=== PATIENT | female | born 1995 | race Caucasian/White ===

== ENCOUNTER → 2017-11-25 12:28 | Outpatient (CLI) | payer OTHER, SELFPAY ==
[2017-11-25 13:41] LABS: Collection Time Urine 24 Hours; Patient Height Urine 66 inches; Patient Weight Urine 260 lbs; Total Volume Urine 1600 mL
[2017-11-25 15:06] LABS: Creat Clearance, Corrected 144.2 mL/MIN; Creatinine Clearance Urine 185.7 mL/MIN; Protein (Total) Urine Random 16 mg/dL (0-12); Total Protein 24 Hour Urine 256 mg/day (42-225)
[2017-11-25 15:31] LABS: Aspartate Aminotransferase 14 IU/L (14-36); BUN Creatinine Ratio 8.6 (6-22); Blood Urea Nitrogen 6 mg/dL (7-17); Estimated Glomerular Filt Rate > 60.0 mL/min (>60); Uric Acid 7.3 mg/dL (2.5-6.2)
[2017-11-25 15:43] LABS: Platelet Count 222 X10^3/uL (150-400)
== END ==
PROVIDERS: Visit Provider Obstetrics & Gynecology
DX: O14.90 Unspecified pre-eclampsia, unspecified trimester (principal)
CPT/HCPCS: 36415; 82575; 84156; 84450; 84550; 85049

== ENCOUNTER 2017-11-25 13:10 | Observation (INO) | payer OTHER, SELFPAY ==
--- NOTE | 2017-11-29 09:07 | PM.OBTRLD ---
Visit Information Visit Information Date of evaluation: 11/25/17 Primary OB Provider: Micaela Russ Reason for Evaluation: Yes non-stress test Comments/Additional reasons for admission: Elevated BP Evaluation Evaluation Baseline heart rate: 135 Variability: Moderate (11-25) monitor accelerations: Absent monitor decelerations: Absent Category of Tracing: I
== END 2017-11-25 16:10 | disposition home or self-care (01) ==
PROVIDERS: Admitting Provider Obstetrics & Gynecology; Visit Provider Obstetrics & Gynecology
DX: O13.3 Gestational [pregnancy-induced] hypertension without significant proteinuria, third trimester (principal); Z3A.35 35 weeks gestation of pregnancy; O24.913 Unspecified diabetes mellitus in pregnancy, third trimester; Z79.84 Long term (current) use of oral hypoglycemic drugs
CPT/HCPCS: 36415; 59025; 59050; 82575; 84156; 84450; 84550; 85049; G0378; G0379

== ENCOUNTER 2017-11-27 03:13 | Outpatient (CLI) | payer OTHER, SELFPAY ==
[2017-11-27 04:25] VITALS: BP 135/87; PULSE 81; RESP 18; TEMP 35.9
[2017-11-27 04:39] VITALS: BP 135/87; PULSE 81; RESP 18; TEMP 35.9
== END 2017-11-27 04:30 | disposition home or self-care (01) ==
LOC: OB 11-28 15:23
PROVIDERS: Visit Provider Obstetrics & Gynecology
DX: O13.3 Gestational [pregnancy-induced] hypertension without significant proteinuria, third trimester (principal); O24.415 Gestational diabetes mellitus in pregnancy, controlled by oral hypoglycemic drugs; Z3A.35 35 weeks gestation of pregnancy
CPT/HCPCS: 59025; 59050; G0378; G0379

== ENCOUNTER 2017-11-29 15:12 | Outpatient (CLI) | payer OTHER, SELFPAY ==
--- NOTE | 2017-11-29 16:13 | PM.OBTRLD ---
Visit Information Visit Information Date of evaluation: 11/29/17 Primary OB Provider: Micaela Russ Reason for Evaluation: Yes non-stress test Comments/Additional reasons for admission: Gestational HTN PFSH Social History Smoking Status: Never smoker Evaluation Evaluation Baseline heart rate: 135 Variability: Moderate (11-25) monitor accelerations: Present monitor decelerations: Absent Category of Tracing: I
== END 2017-11-29 16:15 | disposition home or self-care (01) ==
LOC: LABOR 16:22 → OB 12-02 16:42
PROVIDERS: Visit Provider Obstetrics & Gynecology
DX: O13.3 Gestational [pregnancy-induced] hypertension without significant proteinuria, third trimester (principal); O24.415 Gestational diabetes mellitus in pregnancy, controlled by oral hypoglycemic drugs; Z3A.35 35 weeks gestation of pregnancy
CPT/HCPCS: 59025; G0378; G0379

== ENCOUNTER 2017-12-02 09:01 | Observation (INO) | payer OTHER, SELFPAY ==
[2017-12-02 10:26] VITALS: BP 144/94; PULSE 71
[2017-12-02] MEDS: LABETALOL 100 MG TABLET 200 MG PO (10:26)
[2017-12-02 10:32] LABS: Add Manual Diff / Slide Review NO; Basophils Percent Auto 0.3 % (0-2); Eosinophils Percent Auto 1.7 % (2-4); Hematocrit 34.6 % (36-46); Lymphocytes Percent Auto 19.9 % (25-40); Mean Corpuscular HGB Conc 34.5 % (30-36); Mean Corpuscular Hemoglobin 30.5 PG (26-34); Mean Corpuscular Volume 88.3 fL (80-100); Monocytes Percent Auto 6.4 % (3-14); Neutrophils Absolute Auto 5900 /uL (3000-5900); Neutrophils Percent Auto 71.7 % (50-75); Platelet Count 211 X10^3/uL (150-400); Red Blood Cell Count 3.92 X10^6/uL (4.0-5.2); Red Cell Distribution Width 14.8 % (11.6-14.8); White Blood Cell Count 8.2 X10^3/uL (4.5-11.0)
[2017-12-02 10:52] LABS: Alanine Aminotransferase 16 IU/L (9-52); Albumin 3.5 g/dL (3.5-5.0); Albumin Globulin Ratio 1.3 (1.0-2.8); Alkaline Phosphatase 105 U/L (38-126); Aspartate Aminotransferase 14 IU/L (14-36); BUN Creatinine Ratio 7.1 (6-22); Bilirubin Total 0.2 mg/dL (0.2-1.3); Blood Urea Nitrogen 5 mg/dL (7-17); Calcium 9.9 mg/dL (8.4-10.2); Carbon Dioxide 25 mmol/L (22-32); Chloride 103 mmol/L (98-107); Estimated Glomerular Filt Rate > 60.0 mL/min (>60); Globulin 2.8 g/dL (1.7-4.1); Glucose 82 mg/dL (70-100); HEMOLYSIS < 15 (0-50); Potassium 4.4 mmol/L (3.4-5.1); Sodium 136 mmol/L (137-145); Total Protein 6.3 g/dL (6.3-8.2); Uric Acid 6.5 mg/dL (2.5-6.2)
[2017-12-02 11:14] LABS: Bacteria Urine None Seen; RBC Urine None Seen (0-5/HPF)
[2017-12-02 11:16] LABS: Appearance Urine UA CLEAR; Bilirubin Urine UA NEGATIVE (NEGATIVE); Color Urine UA YELLOW; Glucose Urine UA NEGATIVE (Normal); Ketones Urine UA NEGATIVE (NEGATIVE); Leukocyte Esterase Urine UA NEGATIVE (NEGATIVE); Nitrite Urine UA Negative (Negative); Occult Blood Urine UA NEGATIVE (Negative); Protein Urine UA NEGATIVE (Negative); Specific Gravity Urine UA <=1.005 (1.000-1.035); Urobilinogen Urine UA 0.2 E.U./dL (0.2); pH Urine UA 6.5 (4.5-8.0)
[2017-12-02 11:20] LABS: Culture Indicated Urine Cult Not Indicated
[2017-12-02 11:21] LABS: Squamous Epithelial Cell Urine 10-30 /HPF; WBC Urine 0-1/HPF (0-5/HPF)
--- NOTE | 2017-12-02 11:44 | PM.OBTRLD ---
Visit Information Visit Information Date of evaluation: 12/02/17 Primary OB Provider: Micaela Russ On-call OB Provider: Krysten Fry Reason for Evaluation: Yes non-stress test Comments/Additional reasons for admission: associated hypertension Vital Signs Vital Signs: Vital Signs - 8 hr Patient with blood pressures as high 143/110, 149/101 12/02/17 10:26 Pulse Rate 71 Blood Pressure 144/94 H REPLACED BY [facility] Social History Smoking Status: Never smoker Review of Systems Review of Systems Patient denies headaches, scotomata, and upper epigastric pain Exam Vital Signs (past 8 hours): - 12/02/17 10:26 Pulse Rate 71 Blood Pressure 144/94 H Objective Labs Result Diagrams: 12/02/17 10:22 12/02/17 10:22 Labs: Laboratory Results - last 24 hr 12/02/17 12/02/17 12/02/17 10:22 10:22 Unknown WBC 8.2 RBC 3.92 L Hgb 12.0 Hct 34.6 L MCV 88.3 MCH 30.5 MCHC 34.5 RDW 14.8 Plt Count 211 Neut % (Auto) 71.7 Lymph % (Auto) 19.9 L [place] % (Auto) 6.4 Eos % (Auto) 1.7 L Baso % (Auto) 0.3 Neut # (Auto) 5900 Sodium 136 L Potassium 4.4 Chloride 103 Carbon Dioxide 25 BUN 5 L Creatinine 0.70 Estimated GFR > 60.0 BUN/Creatinine Ratio 7.1 Glucose 82 Uric Acid 6.5 H Calcium 9.9 Total Bilirubin 0.2 AST 14 ALT 16 Alkaline Phosphatase 105 Total Protein 6.3 Albumin 3.5 Globulin 2.8 Albumin/Globulin Ratio 1.3 Urine Color Yellow Urine Appearance Clear Urine pH 6.5 Ur Specific [place] <=1.005 Urine Protein Negative Urine Glucose (UA) Negative Urine Ketones Negative Urine Occult Blood Negative Urine Nitrate Negative Urine Bilirubin Negative Urine Urobilinogen 0.2 Ur Leukocyte Esterase Negative Urine RBC None seen Urine WBC 0-1/hpf Ur Squamous Epith Cells 10-30 /hpf H Urine Bacteria None seen Ur Culture Indicated? Cult not indicated Micro UA Comment Not Reportable Evaluation Evaluation Baseline heart rate: 130 Variability: Moderate (11-25) monitor accelerations: Present monitor decelerations: Absent Category of Tracing: I Laboratory results: Laboratory Tests 12/02/17 12/02/1712/02/18 10:22 10:22 Unknown WBC 8.2 RBC 3.92 L Hgb 12.0 Hct 34.6 L MCV 88.3 MCH 30.5 MCHC 34.5 RDW 14.8 Plt Count 211 Neut % (Auto) 71.7 Lymph % (Auto) 19.9 L [place] % (Auto) 6.4 Eos % (Auto) 1.7 L Baso % (Auto) 0.3 Neut # (Auto) 5900 Sodium 136 L Potassium 4.4 Chloride 103 Carbon Dioxide 25 BUN 5 L Creatinine 0.70 Estimated GFR > 60.0 BUN/Creatinine Ratio 7.1 Glucose 82 Uric Acid 6.5 H Calcium 9.9 Total Bilirubin 0.2 AST 14 ALT 16 Alkaline Phosphatase 105 Total Protein 6.3 Albumin 3.5 Globulin 2.8 Albumin/Globulin Ratio 1.3 Urine Color Yellow Urine Appearance Clear Urine pH 6.5 Ur Specific [place] <=1.005 Urine Protein Negative Urine Glucose (UA) Negative Urine Ketones Negative Urine Occult Blood Negative Urine Nitrate Negative Urine Bilirubin Negative Urine Urobilinogen 0.2 Ur Leukocyte Esterase Negative Urine RBC None seen Urine WBC 0-1/hpf Ur Squamous Epith Cells 10-30 /hpf H Urine Bacteria None seen Ur Culture Indicated? Cult not indicated Micro UA Comment Not Reportable Diagnosis, Plan/Disposition Final Diagnosis (1) Hypertension during in third trimester: Current Visit: No Status: Acute (2) 36 weeks gestation of : Current Visit: No Status: Acute Plan/Disposition Plan: Patient will be started on labetalol for hypertension with no other signs or symptoms of preeclampsia. She has a follow-up appointment with Dr. Russ on December 06. OB Disposition: home
--- NOTE | 2017-12-02 11:50 | P.TNLD_ITS ---
Visit Information Visit Information Date of evaluation: 12/02/17 Primary OB Provider: Micaela Russ On-call OB Provider: Krysten Fry Reason for Evaluation: Yes non-stress test Comments/Additional reasons for admission: associated hypertension Vital Signs Vital Signs: Vital Signs - 8 hr Patient with blood pressures as high 143/110, 149/101 12/02/17 10:26 Pulse Rate 71 Blood Pressure 144/94 H [facility] Social History Smoking Status: Never smoker Review of Systems Review of Systems Patient denies headaches, scotomata, and upper epigastric pain Exam Vital Signs (past 8 hours): - 12/02/17 10:26 Pulse Rate 71 Blood Pressure 144/94 H Objective Labs Result Diagrams: 12/02/17 10:22 12/02/17 10:22 Labs: Laboratory Results - last 24 hr 12/02/17 12/02/17 12/02/17 10:22 10:22 Unknown WBC 8.2 RBC 3.92 L Hgb 12.0 Hct 34.6 L MCV 88.3 MCH 30.5 MCHC 34.5 RDW 14.8 Plt Count 211 Neut % (Auto) 71.7 Lymph % (Auto) 19.9 L [place] % (Auto) 6.4 Eos % (Auto) 1.7 L Baso % (Auto) 0.3 Neut # (Auto) 5900 Sodium 136 L Potassium 4.4 Chloride 103 Carbon Dioxide 25 BUN 5 L Creatinine 0.70 Estimated GFR > 60.0 BUN/Creatinine Ratio 7.1 Glucose 82 Uric Acid 6.5 H Calcium 9.9 Total Bilirubin 0.2 AST 14 ALT 16 Alkaline Phosphatase 105 Total Protein 6.3 Albumin 3.5 Globulin 2.8 Albumin/Globulin Ratio 1.3 Urine Color Yellow Urine Appearance Clear Urine pH 6.5 Ur Specific [place] <=1.005 Urine Protein Negative Urine Glucose (UA) Negative Urine Ketones Negative Urine Occult Blood Negative Urine Nitrate Negative Urine Bilirubin Negative Urine Urobilinogen 0.2 Ur Leukocyte Esterase Negative Urine RBC None seen Urine WBC 0-1/hpf Ur Squamous Epith Cells 10-30 /hpf H Urine Bacteria None seen Ur Culture Indicated? Cult not indicated Micro UA Comment Not Reportable Evaluation Evaluation Baseline heart rate: 130 Variability: Moderate (11-25) monitor accelerations: Present monitor decelerations: Absent Category of Tracing: I Laboratory results: Laboratory Tests 12/02/17 12/02/1712/02/18 10:22 10:22 Unknown WBC 8.2 RBC 3.92 L Hgb 12.0 Hct 34.6 L MCV 88.3 MCH 30.5 MCHC 34.5 RDW 14.8 Plt Count 211 Neut % (Auto) 71.7 Lymph % (Auto) 19.9 L [place] % (Auto) 6.4 Eos % (Auto) 1.7 L Baso % (Auto) 0.3 Neut # (Auto) 5900 Sodium 136 L Potassium 4.4 Chloride 103 Carbon Dioxide 25 BUN 5 L Creatinine 0.70 Estimated GFR > 60.0 BUN/Creatinine Ratio 7.1 Glucose 82 Uric Acid 6.5 H Calcium 9.9 Total Bilirubin 0.2 AST 14 ALT 16 Alkaline Phosphatase 105 Total Protein 6.3 Albumin 3.5 Globulin 2.8 Albumin/Globulin Ratio 1.3 Urine Color Yellow Urine Appearance Clear Urine pH 6.5 Ur Specific [place] <=1.005 Urine Protein Negative Urine Glucose (UA) Negative Urine Ketones Negative Urine Occult Blood Negative Urine Nitrate Negative Urine Bilirubin Negative Urine Urobilinogen 0.2 Ur Leukocyte Esterase Negative Urine RBC None seen Urine WBC 0-1/hpf Ur Squamous Epith Cells 10-30 /hpf H Urine Bacteria None seen Ur Culture Indicated? Cult not indicated Micro UA Comment Not Reportable Diagnosis, Plan/Disposition Final Diagnosis (1) Hypertension during in third trimester: Current Visit: No Status: Acute (2) 36 weeks gestation of : Current Visit: No Status: Acute Plan/Disposition Plan: Patient will be started on labetalol for hypertension with no other signs or symptoms of preeclampsia. She has a follow-up appointment with Dr. Russ on December 06. OB Disposition: home
--- NOTE | 2017-12-07 09:07 | PM.OBTRLD ---
Visit Information Visit Information Date of evaluation: 12/05/17 Primary OB Provider: Micaela Russ Reason for Evaluation: Yes non-stress test and Yes other Comments/Additional reasons for admission: Gestational hypertension [facility] Social History Smoking Status: Never smoker Objective Labs Result Diagrams: 12/02/17 10:22 12/02/17 10:22 Evaluation Evaluation Baseline heart rate: 135 monitor accelerations: Present monitor decelerations: Absent Category of Tracing: I Laboratory results: Laboratory Tests 12/02/17 12/02/17 12/02/17 10:22 10:22 Unknown WBC 8.2 RBC 3.92 L Hgb 12.0 Hct 34.6 L MCV 88.3 MCH 30.5 MCHC 34.5 RDW 14.8 Plt Count 211 Neut % (Auto) 71.7 Lymph % (Auto) 19.9 L [place] % (Auto) 6.4 Eos % (Auto) 1.7 L Baso % (Auto) 0.3 Neut # (Auto) 5900 Sodium 136 L Potassium 4.4 Chloride 103 Carbon Dioxide 25 BUN 5 L Creatinine 0.70 Estimated GFR > 60.0 BUN/Creatinine Ratio 7.1 Glucose 82 Uric Acid 6.5 H Calcium 9.9 Total Bilirubin 0.2 AST 14 ALT 16 Alkaline Phosphatase 105 Total Protein 6.3 Albumin 3.5 Globulin 2.8 Albumin/Globulin Ratio 1.3 Urine Color Yellow Urine Appearance Clear Urine pH 6.5 Ur Specific [place] <=1.005 Urine Protein Negative Urine Glucose (UA) Negative Urine Ketones Negative Urine Occult Blood Negative Urine Nitrate Negative Urine Bilirubin Negative Urine Urobilinogen 0.2 Ur Leukocyte Esterase Negative Urine RBC None seen Urine WBC 0-1/hpf Ur Squamous Epith Cells 10-30 /hpf H Urine Bacteria None seen Ur Culture Indicated? Cult not indicated Micro UA Comment Not Reportable Diagnosis, Plan/Disposition Final Diagnosis (1) Hypertension during in third trimester: Current Visit: No Status: Acute (2) 36 weeks gestation of : Current Visit: No Status: Acute
== END 2017-12-02 11:47 | disposition home or self-care (01) ==
PROVIDERS: Specialist; Admitting Provider Obstetrics & Gynecology; Visit Provider Obstetrics & Gynecology
DX: O13.3 Gestational [pregnancy-induced] hypertension without significant proteinuria, third trimester (principal); Z3A.36 36 weeks gestation of pregnancy
CPT/HCPCS: 59025; 59050; 80053; 81001; 84550; 85025; G0378; G0379

== ENCOUNTER 2017-12-05 17:59 | Observation (INO) | payer OTHER, SELFPAY ==
[2017-12-05 18:51] LABS: Platelet Count 209 X10^3/uL (150-400)
[2017-12-05 19:00] LABS: Aspartate Aminotransferase 15 IU/L (14-36); Blood Urea Nitrogen 6 mg/dL (7-17); Estimated Glomerular Filt Rate > 60.0 mL/min (>60); Uric Acid 6.5 mg/dL (2.5-6.2)
[2017-12-05 19:34] LABS: Appearance Urine UA CLEAR; Bilirubin Urine UA NEGATIVE (NEGATIVE); Color Urine UA YELLOW; Glucose Urine UA NEGATIVE (Normal); Ketones Urine UA TRACE (NEGATIVE); Leukocyte Esterase Urine UA TRACE (NEGATIVE); Nitrite Urine UA Negative (Negative); Occult Blood Urine UA NEGATIVE (Negative); Protein Urine UA 1+ (Negative); Urobilinogen Urine UA 0.2 E.U./dL (0.2); pH Urine UA 7.5 (4.5-8.0)
[2017-12-05 19:51] LABS: Bacteria Urine None Seen; RBC Urine None Seen (0-5/HPF)
[2017-12-05 20:02] LABS: Squamous Epithelial Cell Urine 5-10 /HPF; WBC Urine 5-10/HPF (0-5/HPF)
[2017-12-05 20:03] LABS: Culture Indicated Urine Cult Not Indicated
[2017-12-05] MEDS: ACETAMINOPHEN 325 MG TABLET 975 MG PO (20:05)
== END 2017-12-05 20:15 | disposition home or self-care (01) ==
LOC: LABOR 18:02
PROVIDERS: Obstetrics & Gynecology; Admitting Provider Family Medicine; Visit Provider Family Medicine
DX: O13.3 Gestational [pregnancy-induced] hypertension without significant proteinuria, third trimester (principal); O24.415 Gestational diabetes mellitus in pregnancy, controlled by oral hypoglycemic drugs; Z3A.36 36 weeks gestation of pregnancy
CPT/HCPCS: 36415; 59025; 59050; 81003; 81015; 84450; 84550; 85049; G0378; G0379

== ENCOUNTER 2017-12-06 16:48 | Observation (INO) | payer OTHER, SELFPAY | END 2017-12-06 16:49 | disposition home or self-care (01) | LOC: LABOR 16:49 | PROVIDERS: Admitting Provider Obstetrics & Gynecology; Visit Provider Obstetrics & Gynecology | DX: O13.3 Gestational [pregnancy-induced] hypertension without significant proteinuria, third trimester (principal); O24.415 Gestational diabetes mellitus in pregnancy, controlled by oral hypoglycemic drugs; Z3A.36 36 weeks gestation of pregnancy | CPT/HCPCS: 59025; 59050; G0379 ==

== ENCOUNTER 2017-12-09 15:22 | Outpatient (CLI) | payer OTHER, SELFPAY ==
--- NOTE | 2017-12-09 16:16 | P.TNLD_ITS ---
Visit Information Visit Information Date of evaluation: 12/09/17 Primary OB Provider: Micaela Russ Reason for Evaluation: Yes non-stress test non-stress test reason: hypertension/ pre-eclampsia [facility] Social History Smoking Status: Never smoker Evaluation Evaluation Baseline heart rate: 125 Variability: Moderate (11-25) monitor accelerations: Present monitor decelerations: Absent Category of Tracing: I
== END 2017-12-09 16:30 | disposition home or self-care (01) ==
LOC: LABOR 16:26 → OB 12-12 11:12
PROVIDERS: Visit Provider Obstetrics & Gynecology
DX: O13.3 Gestational [pregnancy-induced] hypertension without significant proteinuria, third trimester (principal); O24.419 Gestational diabetes mellitus in pregnancy, unspecified control; Z3A.37 37 weeks gestation of pregnancy
CPT/HCPCS: 59025; G0378; G0379

== ENCOUNTER 2017-12-12 17:45 | Inpatient (IN) | payer OTHER, SELFPAY ==
[2017-12-12] MEDS: miSOPROStol 25 MCG TABLET VAG ×2 (18:30→22:42)
[2017-12-12 20:51] LABS: Add Manual Diff / Slide Review NO; Basophils Percent Auto 0.2 % (0-2); Eosinophils Percent Auto 1.3 % (2-4); Hematocrit 33.5 % (36-46); Hemoglobin 11.4 g/dL (12.0-16.0); Lymphocytes Percent Auto 15.8 % (25-40); Mean Corpuscular HGB Conc 34.1 % (30-36); Mean Corpuscular Volume 87.9 fL (80-100); Monocytes Percent Auto 5.7 % (3-14); Neutrophils Absolute Auto 6700 /uL (3000-5900); Platelet Count 226 X10^3/uL (150-400); Red Blood Cell Count 3.81 X10^6/uL (4.0-5.2); White Blood Cell Count 8.6 X10^3/uL (4.5-11.0)
[2017-12-12 20:52] LABS: Aspartate Aminotransferase 15 IU/L (14-36); BUN Creatinine Ratio 11.4 (6-22); Blood Urea Nitrogen 8 mg/dL (7-17); Estimated Glomerular Filt Rate > 60.0 mL/min (>60)
[2017-12-12] MEDS: METFORMIN 850 MG TABLET PO (21:06)
[2017-12-12] MEDS: FLUoxetine 20 MG CAPSULE 40 MG PO (21:06)
[2017-12-12 21:20] VITALS: BP 134/84; PULSE 81
[2017-12-12] MEDS: LABETALOL 100 MG TABLET 200 MG PO (21:20)
[2017-12-12 21:23] VITALS: BP 134/84
[2017-12-12] MEDS: ZOLPIDEM 5 MG TABLET 10 MG PO (22:02)
[2017-12-13] MEDS: OXYTOCIN PREMIX 30 UNIT/500 ML PLAST..BAG IV (01:15)
[2017-12-13] MEDS: LACTATED RINGERS 1,000 ML 125 ML IV ×2 (08:15→16:46)
[2017-12-13] MEDS: LABETALOL 100 MG TABLET 200 MG PO (08:37)
[2017-12-13] MEDS: METFORMIN 850 MG TABLET PO (08:37)
[2017-12-13] MEDS: fentaNYL 100 MCG/2 ML INJ 50 MCG IV ×2 (12:20→13:20)
--- NOTE | 2017-12-13 17:25 | PM.OBHP.1 ---
OB HPI Date/Time Date of admission: 12/12/17 Date Patient Seen: 12/13/17 Time Patient Seen: 07:30 History of Present Illness Chief complaint: obs : 1 Para: 0 Estimated Date of Delivery: 12/29/17 Estimated Gestational Age (weeks): 37 4/7 Narrative: Christa Salmon is a 22 year old female 1 para 0 at 37 and 4 7th weeks gestation She presented last evening for cervical ripening. Cervix was favorable this morning. She is being induced secondary to gestational hypertension Indications Indication for induction OB: medical complication (Gestational hypertension) History of Present care: good care Dating criteria: LMP confirmed by 1st trimester US Ultrasounds: normal 1st trimester US and normal mid trimester US Obstetrical complications: gestational diabetes (Metformin) and gestational hypertension Medical complications: none Preadmission Labs Blood type: A (+) positive -: Antibody screen: negative, GBS status: negative, HBsAG: negative, HIV: negative and RPR/VDLR: negative -: Chlamydia screen: not detected and Gonorrhea screen: not detected -: Rubella: immune HCT: 36.1 Quad screen: Normal Urine: Negative 1 hr GTT: 213 Evaluation Evaluation Baseline heart rate: 135 Variability: Moderate (11-25) monitor accelerations: Present monitor decelerations: Absent Contraction Frequency (minutes): 3 Uterine Contraction Intensity: Moderate Category of Tracing: I Cervical dilation (cm): 3 Cervical effacement (%): 80 station: -1 Laboratory results: Laboratory Tests 12/12/17 12/12/17 12/12/17 20:30 20:30 20:30 WBC 8.6 RBC 3.81 L Hgb 11.4 L Hct 33.5 L MCV 87.9 MCH 30.0 MCHC 34.1 RDW 15.0 H Plt Count 226 Neut % (Auto) 77.0 H Lymph % (Auto) 15.8 L [place] % (Auto) 5.7 Eos % (Auto) 1.3 L Baso % (Auto) 0.2 Neut # (Auto) 6700 H BUN 8 Creatinine 0.70 Estimated GFR > 60.0 BUN/Creatinine Ratio 11.4 Uric Acid 7.0 H AST 15 Blood Type A Positive Antibody Screen Negative PFSH Social History Smoking Status: Never smoker Meds Home Medications Medication Instructions Recorded Confirmed Type [id number] fumarate-FA 1 tab PO DAILY 11/25/17 12/12/17 History [] fluoxetine [Prozac] 40 mg PO DAILY 11/25/17 12/12/17 History metformin 850 mg PO BID 11/25/17 12/12/17 History cetirizine [Zyrtec] 10 mg PO DAILY 11/27/17 12/12/17 History magnesium 400 mg PO TID 11/27/17 12/12/17 History breast pump #1 each 11/29/17 12/12/17 Rx labetalol 200 mg PO BID #30 tab 12/02/17 12/12/17 Rx Allergies Allergy/AdvReac Type Severity Reaction Status Date / Time No Known Drug Allergies Allergy Verified 11/25/17 13:58 Exam Vital Signs (past 8 hours): Generally: Patient is sitting up in bed, in mild distress secondary to contractions Lungs: Clear to auscultation bilaterally Cardiovascular: Regular rate and rhythm Abdomen: Fundal height 39 cm Estimated weight: 7 lb Extremities: 1+ edema, negative Homans, 2+ DTRs, no clonus Objective Labs Result Diagrams: 12/12/17 20:30 12/12/17 20:30 Labs: Laboratory Results - last 24 hr 12/12/17 12/12/17 12/12/17 20:30 20:30 20:30 WBC 8.6 RBC 3.81 L Hgb 11.4 L Hct 33.5 L MCV 87.9 MCH 30.0 MCHC 34.1 RDW 15.0 H Plt Count 226 Neut % (Auto) 77.0 H Lymph % (Auto) 15.8 L [place] % (Auto) 5.7 Eos % (Auto) 1.3 L Baso % (Auto) 0.2 Neut # (Auto) 6700 H BUN 8 Creatinine 0.70 Estimated GFR > 60.0 BUN/Creatinine Ratio 11.4 Uric Acid 7.0 H AST 15 Blood Type A Positive Antibody Screen Negative Assessment and Plan (1) 37 weeks gestation of : Current visit: Yes Status: Acute Assessment: 22-year-old 1 para 0 at 37 and 4 7th weeks gestation status post Cytotec x2 last evening. Now with favorable cervix. Gestational hypertension and gestational diabetes Plan: Begin Pitocin per protocol 2 Expected management to spontaneous vaginal delivery Epidural as necessary (2) Gestational hypertension: Current visit: Yes Status: Acute (3) Gestational diabetes: Current visit: Yes Status: Acute
[2017-12-13] MEDS: IBUPROFEN 600 MG TABLET PO (22:01)
[2017-12-14] MEDS: IBUPROFEN 600 MG TABLET PO ×2 (04:31→10:25)
[2017-12-14 07:06] LABS: Hematocrit 32.2 % (36-46); Hemoglobin 10.9 g/dL (12.0-16.0)
[2017-12-14] MEDS: DOCUSATE 250 MG CAPSULE PO (09:29)
[2017-12-14] MEDS: FLUoxetine 20 MG CAPSULE 40 MG PO (09:30)
[2017-12-14] MEDS: LABETALOL 100 MG TABLET 200 MG PO (09:30)
[2017-12-14] MEDS: PRENATAL VIT,CALC/IRON/FOLIC 1 TABLET 1 TAB PO (09:30)
[2017-12-14] MEDS: METFORMIN HCL 500 MG TABLET PO (10:25)
[2017-12-14 17:42] VITALS: BP 120/85; PULSE 81; RESP 16; TEMP 36.7
--- NOTE | 2017-12-14 20:31 | PM.OBPRVD ---
Events: Gestational Diabetes and Induced HTN Delivery date: 12/13/17 Intrapartal events: None Induction method: per pitocin protocol Delivery augmentation: rupture of membranes Route of delivery: Episiotomy description: None Laceration description: None Estimated blood loss (mL): 150 Anesthesia type: Epidural Complications: None Narrative: Patient complete and pushed for 1 hr and 33 min. At 5:52 p.m., a live female delivered spontaneously over an intact perineum. No nuchal cord. The remainder of the body delivered without difficulty and was placed on mom's abdomen. After the cord stopped pulsing, the cord was double clamped and cut. Cord bloods were obtained. The placenta delivered intact with a 3 vessel cord at 6:09 p.m.. The fundus was massaged to firm. Pitocin was given in the IV fluids. No lacerations. Epidural analgesia. . Weight 7 lb 0.1 oz. Apgars 8 at 1 min and 9 at 5 min. Mom and stable to recovery. Plan for aftercare: To routine care
--- NOTE | 2017-12-14 20:34 | PM.OBPN.1 ---
Subjective - OB Interval history: No headache or blurred vision. Patient comments: no complaints [place] baby status: doing well [place] feeding status: exclusively breast feeding Date Patient Seen: 12/14/17 Time Patient Seen: 17:30 Exam Vital Signs (past 8 hours): - 12/14/17 17:42 Temperature 98.1 F Pulse Rate 81 Respiratory Rate 16 Blood Pressure 120/85 H Narrative Exam Narrative: Generally: Patient is sitting up in bed, holding , no acute distress Fundus: Firm at U -1 Extremities: 1+ edema, negative Homans, no clonus Objective Labs Result Diagrams: 12/14/17 06:25 12/12/17 20:30 Labs: Laboratory Results - last 24 hr 12/12/17 12/14/17 20:30 06:25 Hgb 10.9 L Hct 32.2 L Plt Count TNP Assessment & Plan (1) 37 weeks gestation of : Status: Acute Current Visit: No (2) Gestational hypertension: Status: Acute Current Visit: No (3) Gestational diabetes: Status: Acute Current Visit: No (4) Normal spontaneous vaginal delivery: Status: Acute Assessment and plan: Assessment: 22-year-old 1 para 1 day # 1 status post spontaneous vaginal delivery after cervical ripening and Pitocin induction due to gestational hypertension. Mom and baby doing well Plan: Discharged home Follow-up 2 weeks for blood pressure check Follow-up 6 weeks for exam Labetalol 200 mg p.o. b.i.d. Metformin 500 mg p.o. b.i.d. Ibuprofen 600 mg every 6 hr as needed for cramping Patient to call with fever, chills, or bleeding vaginally more than a pad an hour. Patient to call with headache, blurred vision, right upper quadrant pain. Current Visit: No Time Spent With Patient Total time spent is greater than 50% in coordination of care (as documented) at patient's floor/unit and/or counseling patient: 25 - 35 minutes
--- NOTE | 2017-12-14 20:37 | P.PNOB_ITS ---
Subjective - OB Interval history: No headache or blurred vision. Patient comments: no complaints [place] baby status: doing well [place] feeding status: exclusively breast feeding Date Patient Seen: 12/14/17 Time Patient Seen: 17:30 Exam Vital Signs (past 8 hours): - 12/14/17 17:42 Temperature 98.1 F Pulse Rate 81 Respiratory Rate 16 Blood Pressure 120/85 H Narrative Exam Narrative: Generally: Patient is sitting up in bed, holding , no acute distress Fundus: Firm at U -1 Extremities: 1+ edema, negative Homans, no clonus Objective Labs Result Diagrams: 12/14/17 06:25 12/12/17 20:30 Labs: Laboratory Results - last 24 hr 12/12/17 12/14/17 20:30 06:25 Hgb 10.9 L Hct 32.2 L Plt Count TNP Assessment & Plan (1) 37 weeks gestation of : Status: Acute Current Visit: No (2) Gestational hypertension: Status: Acute Current Visit: No (3) Gestational diabetes: Status: Acute Current Visit: No (4) Normal spontaneous vaginal delivery: Status: Acute Assessment and plan: Assessment: 22-year-old 1 para 1 day # 1 status post spontaneous vaginal delivery after cervical ripening and Pitocin induction due to gestational hypertension. Mom and baby doing well Plan: Discharged home Follow-up 2 weeks for blood pressure check Follow-up 6 weeks for exam Labetalol 200 mg p.o. b.i.d. Metformin 500 mg p.o. b.i.d. Ibuprofen 600 mg every 6 hr as needed for cramping Patient to call with fever, chills, or bleeding vaginally more than a pad an hour. Patient to call with headache, blurred vision, right upper quadrant pain. Current Visit: No Time Spent With Patient Total time spent is greater than 50% in coordination of care (as documented) at patient's floor/unit and/or counseling patient: 25 - 35 minutes
--- NOTE | 2017-12-14 20:39 | P.DS_ITS ---
Discharge Providers Date of admission: 12/12/17 17:45 Consults: 12/13/17 19:00 Consult to [employer] Routine Comment: Discharge provider: Micaela Russ MD Summary Date Patient Seen: 12/14/17 Time Patient Seen: 17:30 Hospital Course: Patient is a 22-year-old 1 para 1 who presented on for Cytotec cervical ripening. She received 2 doses of Cytotec at 25 mcg each. She was started on Pitocin on 12/13/2017. She progressed in labor. She received an epidural for pain management. She had a spontaneous vaginal delivery without complication. Her course was unremarkable. Peripartum Data Delivery Method: Natural Vaginal Laceration description: None Procedures: Spontaneous vaginal delivery complications: none Discharge Diagnosis (1) 37 weeks gestation of : Status: Acute (2) Gestational hypertension: Status: Acute (3) Gestational diabetes: Status: Acute (4) Normal spontaneous vaginal delivery: Status: Acute Status at Discharge Functional status at discharge: independent ambulation Overall status at discharge: patient is progressing back to baseline Time Spent with Patient Total time spent providing and/or coordinating discharge services: Less than 30 minutes Objective Labs Result Diagrams: 12/14/17 06:25 12/12/17 20:30 Labs: Laboratory Results - last 24 hr 12/12/17 12/14/17 20:30 06:25 Hgb 10.9 L Hct 32.2 L Plt Count TNP Discharge Plan Discharge Plan Patient Disposition: Home, Self-Care Discharge Med Rec/Prescriptions Prescriptions: New metformin 500 mg tablet 500 mg PO BID Qty: 60 RF: 8 labetalol 200 mg tablet 200 mg PO BID Qty: 60 RF: 3 Continue labetalol 200 mg tablet 200 mg PO BID Qty: 30 RF: 0 fluoxetine [Prozac] 40 mg Capsule 40 mg PO DAILY RF: 0 [id number] fumarate-FA [] 28-800 mg-mcg Tablet 1 tab PO DAILY RF: 0 magnesium 200 mg Tablet 400 mg PO TID RF: 0 Discontinued metformin 850 mg Tablet 850 mg PO BID RF: 0 cetirizine [Zyrtec] 10 mg Capsule 10 mg PO DAILY RF: 0 No Action breast pump device .Route .MEDSUPPLY Qty: 1 RF: 0 Follow up/Referrals: Micaela Russ MD [Physician] - 6 Weeks (Appointment with Thursday, January 25 at 9:00am. Clinic on Tuesday, December 19 at 11: 00 am) Provider Discharge Instructions Diet: Diet as Tolerated Activity: No intercourse Skin/Wound/Dressing Care Report to your healthcare provider any signs of infection, such as:: chills, fever, increased pain and unusual drainage Visit Report/Discharge Packet Instructions: Pre-eclampsia, DI for Labor and Delivery, Vaginal Visit Report Forms: Stroke Signs & Symptoms Discharge Data Attending Provider: Micaela Russ Admit Date/Time: 12/12/17 17:45 Discharges patient from system. Discharge Date/Time: 12/14/17 18:40
== END 2017-12-14 18:40 | disposition home or self-care (01) | DRG 774 ==
PROVIDERS: Admitting Provider Obstetrics & Gynecology; Visit Provider Obstetrics & Gynecology
DX: O13.4 Gestational [pregnancy-induced] hypertension without significant proteinuria, complicating childbirth (principal); O24.415 Gestational diabetes mellitus in pregnancy, controlled by oral hypoglycemic drugs; Z3A.37 37 weeks gestation of pregnancy; Z37.0 Single live birth
CPT/HCPCS: 01967; 36415; 59050; 59409; 84450; 84550; 85014; 85018; 85025; 86850; 86900; 86901; G0379; J2590; J3010

== ENCOUNTER → 2018-05-01 15:29 | Outpatient (CLI) | payer OTHER, SELFPAY ==
[2018-05-01 16:15] LABS: C-Reactive Protein Quant < 0.5 mg/dL (<1.0); Rheumatoid Factor < 8.6 IU/mL (<12.0)
[2018-05-01 16:16] LABS: Erythrocyte Sedimentation Rate 19 MM/HR (0-20)
[2018-05-01 16:36] LABS: TSH w/ Reflex to FT4 2.04 uIU/mL (0.47-4.68)
[2018-05-04 12:01] LABS: CCP Antibody (IgG) < 16 Units (< 20)
[2018-05-04 12:58] LABS: ANA Screen, IFA Negative (Negative)
== END ==
PROVIDERS: Visit Provider Registered Nurse
DX: M35.3 Polymyalgia rheumatica (principal)
CPT/HCPCS: 36415; 83516; 84443; 85651; 86038; 86140; 86430

== ENCOUNTER → 2019-04-03 10:04 | Outpatient (CLI) | payer OTHER, SELFPAY | PROVIDERS: PCP Family Medicine; Visit Provider Nurse Practitioner | DX: L08.9 Local infection of the skin and subcutaneous tissue, unspecified (principal); N64.9 Disorder of breast, unspecified | CPT/HCPCS: 87070; 87205 ==

== ENCOUNTER → 2019-10-19 11:57 | Outpatient (CLI) | payer OTHER, SELFPAY ==
[2019-10-19 12:35] LABS: Add Manual Diff / Slide Review NO; Basophils Absolute Auto 0 /uL (0-100); Basophils Percent Auto 0.4 % (0-2); Eosinophils Absolute Auto 100 /uL (0-450); Eosinophils Percent Auto 2.5 % (2-4); Hematocrit 39.8 % (36-46); Hemoglobin 13.7 g/dL (12.0-16.0); Lymphocytes Absolute Auto 1600 /uL (1100-4500); Lymphocytes Percent Auto 28.6 % (25-40); Mean Corpuscular HGB Conc 34.5 % (30-36); Mean Corpuscular Hemoglobin 28.4 PG (26-34); Mean Corpuscular Volume 82.4 fL (80-100); Monocytes Absolute Auto 300 /uL (0-900); Monocytes Percent Auto 4.8 % (3-14); Neutrophils Absolute Auto 3600 /uL (1500-7000); Neutrophils Percent Auto 63.7 % (50-75); Platelet Count 280 X10^3/uL (150-400); Red Blood Cell Count 4.83 X10^6/uL (4.0-5.2); Red Cell Distribution Width 13.6 % (11.6-14.8); White Blood Cell Count 5.7 X10^3/uL (4.5-11.0)
[2019-10-19 12:49] LABS: Alanine Aminotransferase 25 IU/L (<35); Albumin 4.4 g/dL (3.5-5.0); Albumin Globulin Ratio 1.5 (1.0-2.8); Alkaline Phosphatase 87 U/L (38-126); Aspartate Aminotransferase 26 IU/L (14-36); BUN Creatinine Ratio 16.7 (6-22); Bilirubin Total 0.5 mg/dL (0.2-1.3); Blood Urea Nitrogen 14 mg/dL (7-17); Calcium 9.9 mg/dL (8.4-10.2); Carbon Dioxide 28 mmol/L (22-32); Chloride 105 mmol/L (98-107); Estimated Glomerular Filt Rate > 60.0 mL/min (>60); Glucose 107 mg/dL (70-100); HEMOLYSIS < 15 (0-50); Potassium 3.8 mmol/L (3.4-5.1); Sodium 140 mmol/L (137-145); Total Protein 7.4 g/dL (6.3-8.2)
[2019-10-19 13:48] LABS: Thyroid Stimulating Hormone 1.52 uIU/mL (0.47-4.68)
== END ==
PROVIDERS: PCP Family Medicine; Referring Provider Family Medicine; Visit Provider Family Medicine
DX: M25.50 Pain in unspecified joint (principal); R53.83 Other fatigue; R60.9 Edema, unspecified
CPT/HCPCS: 36415; 80053; 84443; 85025

== ENCOUNTER 2020-03-19 19:11 | Emergency (ER) | payer OTHER, SELFPAY ==
[2020-03-19] VITALS (11 sets, daily range): BP systolic 123–138; BP diastolic 70–91; PULSE 66–96; RESP 12–26; TEMP 35.8; O2SAT 96–100; BMI 44.4
[2020-03-19 19:48] LABS: Add Manual Diff / Slide Review NO; Basophils Absolute Auto 0 /uL (0-100); Basophils Percent Auto 0.4 % (0-2); Eosinophils Absolute Auto 100 /uL (0-450); Eosinophils Percent Auto 1.7 % (2-4); Hematocrit 42.8 % (36-46); Hemoglobin 14.4 g/dL (12.0-16.0); Lymphocytes Absolute Auto 2100 /uL (1100-4500); Lymphocytes Percent Auto 25.2 % (25-40); Mean Corpuscular HGB Conc 33.5 % (30-36); Mean Corpuscular Hemoglobin 28.2 PG (26-34); Monocytes Absolute Auto 400 /uL (0-900); Monocytes Percent Auto 5.1 % (3-14); Neutrophils Absolute Auto 5700 /uL (1500-7000); Neutrophils Percent Auto 67.6 % (50-75); Platelet Count 308 X10^3/uL (150-400); Red Blood Cell Count 5.09 X10^6/uL (4.0-5.2); Red Cell Distribution Width 13.7 % (11.6-14.8); White Blood Cell Count 8.4 X10^3/uL (4.5-11.0)
[2020-03-19] MEDS: SODIUM CHLORIDE 0.9% 1,000 ML 125 ML IV (19:48)
--- NOTE | 2020-03-19 19:50 | ED.FEMALEGU ---
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 She denies and has minimal cramping if any pain. She states that at its heaviest, last night, she was saturating a pad about every 90 minutes but it seems to have slowed since about noon. It has been many months since her last normal menstrual cycle. She states that she bled heavily for much of December and does not think she had a cycle in January. She started having some spotting on March 06 and has been given a prescription of medroxyprogesterone by her OB physician. She just started letrozole yesterday. Related Data Previous Rx's Medication Instructions Recorded metformin 500 mg tablet 500 mg PO BID #60 tab 10/26/19 sertraline 100 mg tablet 100 mg PO DAILY #30 tab 02/22/20 letrozole 2.5 mg tablet 5 mg PO DAILY #10 tab 04/16/20 medroxyprogesterone 10 mg tablet 10 mg PO DAILY #10 tab 04/16/20 Allergies Allergy/AdvReac Type Severity Reaction Status Date / Time No Known Drug Allergies Allergy Verified 02/22/20 10:02 Review of Systems Constitutional Constitutional: Denies chills, Denies fatigue, Denies fever(s), Denies frequent falls, Denies lethargy and Denies weakness Eyes Eyes: Denies change in vision, Denies eye discharge, Denies irritation and Denies loss of vision ENT Ears, Nose, Mouth, and Throat: Denies change in voice, Denies dizziness, Denies neck pain, Denies sore throat and Denies throat swelling Cardiovascular Cardiovascular: Denies chest pain, Denies irregular heart rhythm, Denies lightheadedness, Denies palpitations, Denies dyspnea, Denies dyspnea on exertion and Denies orthopnea Respiratory Respiratory: Denies cough, Denies dyspnea, Denies dyspnea on exertion and Denies wheezing Gastrointestinal Gastrointestinal: Denies abdominal pain, Denies change in bowel habits, Denies diarrhea, Denies nausea and Denies vomiting Genitourinary Genitourinary: Reports abnormal vaginal bleeding Musculoskeletal Musculoskeletal: Denies neck pain and Denies numbness Integumentary/Breasts Skin/Breast: Denies pruritus, Denies erythema, Denies rash and Denies wounds Neurologic Neurologic: Denies behavioral changes, Denies confusion, Denies dizziness, Denies frequent falls, Denies loss of vision, Denies numbness and Denies weakness Psychiatric Psychiatric: Denies anxiety, Denies behavioral changes, Denies confusion, Denies depression, Denies homicidal ideation and Denies suicidal ideation Endocrine Endocrine: Denies fatigue, Denies flushing and Denies palpitations Hematologic/Lymphatic Hematologic/Lymphatic: Denies easy bruising Allergic/Immunologic Allergic/Immunologic: Denies urticaria, Denies throat swelling and Denies wheezing Patient History Medical History Chronic pain Fibromyalgia JOSE DE JESUS (generalized anxiety disorder) Migraines Morbid obesity with BMI of 40.0-44.9, adult Spontaneous vaginal delivery SVT (supraventricular tachycardia) alcohol intake frequency: holidays/special occasions only Substance Use Type: does not use Exam Narrative Exam Narrative: GENERAL: [24] year old patient appears stated age. Well-nourished, well-developed patient, in mild distress. HEAD: Atraumatic. Normocephalic. EYES: Pupils equal round and reactive. Extraocular motions intact. No scleral icterus. No injection or drainage. ENT: Nose without bleeding, purulent drainage. Throat without erythema, tonsillar hypertrophy or exudate. Airway patent. NECK: Trachea midline. Non tender CARDIOVASCULAR: Regular rate and rhythm without murmurs, gallops, or rubs. RESPIRATORY: Clear to auscultation. Breath sounds equal bilaterally. No wheezes, rales, or rhonchi. GASTROINTESTINAL: Abdomen soft, non-tender, nondistended. EXTREMITIES: No edema or joint tenderness. BACK: Nontender without deformity or crepitance. No flank tenderness. NEURO: AOx3. SKIN: No rash or erythema of visible areas Initial Vital Signs Initial Vital Signs: Vital Signs Temperature 96.4 F L 03/19/20 19:15 Pulse Rate 80 03/19/20 19:15 Respiratory Rate 18 03/19/20 19:15 Blood Pressure 133/89 03/19/20 19:15 Pulse Oximetry 98 03/19/20 19:15 Course Orders Ordered: Discontinued Medications Sodium Chloride (Normal Saline 0.9%) 1,000 mls @ 125 mls/hr IV CONT HARIS Last Infusion: 03/19/20 20:57 Dose: 0 mls/hr Documented by: Admin: 03/19/20 19:48 Dose: 125 mls/hr Documented by: NYDIA Vital Signs Vital signs: Vital Signs - 8 hr 03/19/20 20:58 Pulse Rate 70 Respiratory Rate 14 Blood Pressure 123/85 Pulse Oximetry 100 MDM - Female Genitourinary Lab Data Result diagrams: 03/19/20 19:20 03/19/20 19:20 Labs: Lab Results 03/19/20 03/19/20 03/19/20 Range/Units 19:20 19:20 19:25 WBC 8.4 (4.5-11.0) X10^3/uL RBC 5.09 (4.0-5.2) X10^6/uL Hgb 14.4 (12.0-16.0) g/dL Hct 42.8 (36-46) % MCV 84.0 (80-100) fL MCH 28.2 (26-34) PG MCHC 33.5 (30-36) % RDW 13.7 (11.6-14.8) % Plt Count 308 (150-400) X10^3/uL Neut % (Auto) 67.6 (50-75) % Lymph % (Auto) 25.2 (25-40) % [place] % (Auto) 5.1 (3-14) % Eos % (Auto) 1.7 L (2-4) % Baso % (Auto) 0.4 (0-2) % Neut # (Auto) 5700 (5199-6115) /uL Lymph # (Auto) 2100 (3523-0252) /uL [place] # (Auto) 400 (0-900) /uL Eos # (Auto) 100 (0-450) /uL Baso # (Auto) 0 (0-100) /uL Sodium 139 (137-145) mmol/L Potassium 3.9 (3.4-5.1) mmol/L Chloride 103 (98-107) mmol/L Carbon Dioxide 28 (22-32) mmol/L BUN 13 (7-17) mg/dL Creatinine 1.01 (0.52-1.04) mg/dL Estimated GFR > 60.0 (>60) mL/min BUN/Creatinine Ratio 12.9 (6-22) Glucose 135 H (70-100) mg/dL Calcium 9.9 (8.4-10.2) mg/dL Serum , Qual Negative (Negative) Discharge Plan Departure Patient Disposition: Home Clinical Impression: PCOS (polycystic ovarian syndrome), Abnormal vaginal bleeding Instructions: DI for Vaginal Bleeding Activity Restrictions/Additional Instructions: *You have been diagnosed with [heavy vaginal bleeding, significantly improved with reassuring physical exam, blood work and vital signs.] *What to do: *Take medications as directed *Follow up with your OB provider in the next few days, call for an appointment. Let them know you were seen in the Emergency Department and that we ask that you be seen in follow up *Return to ER if you should have any new, worsening or concerning symptoms, such as [increased bleeding with saturation of a pad every hour for a few hours, increased or more persistent pain, fever > 101F or other bothersome symptoms ] Prescriptions: No Action metformin 500 mg tablet 500 mg PO BID Qty: 60 RF: 8 sertraline 100 mg tablet 100 mg PO DAILY Qty: 30 RF: 2 letrozole 2.5 mg tablet 5 mg PO DAILY Qty: 10 RF: 3 medroxyprogesterone 10 mg tablet 10 mg PO DAILY Qty: 10 RF: 3 Referrals: Micaela Russ MD [Physician] - Gabi Jimenes DO [Primary Care Provider] -
[2020-03-19 19:54] LABS: BUN Creatinine Ratio 12.9 (6-22); Blood Urea Nitrogen 13 mg/dL (7-17); Calcium 9.9 mg/dL (8.4-10.2); Carbon Dioxide 28 mmol/L (22-32); Chloride 103 mmol/L (98-107); Estimated Glomerular Filt Rate > 60.0 mL/min (>60); Glucose 135 mg/dL (70-100); HEMOLYSIS < 15 (0-50); Potassium 3.9 mmol/L (3.4-5.1); Sodium 139 mmol/L (137-145)
--- NOTE | 2020-03-19 19:57 | PC.NURSE ---
Last period was January 04 - . Had one instance of spotting March 06, started progesterone, per MD. TuesdayMarch 17 started heavy vaginal bleeding, a pad an hour at times. Today bleeding has slowed. Pt feels dizziness and also had spotty vision today.
[2020-03-19 20:32] LABS: Pregnancy Test Serum,Qual Negative (Negative)
== END 2020-03-19 20:59 | disposition home or self-care (01) ==
PROVIDERS: Emergency Provider Emergency Medicine; PCP Family Medicine
DX: E28.2 Polycystic ovarian syndrome (principal); N93.9 Abnormal uterine and vaginal bleeding, unspecified
CPT/HCPCS: 36415; 80048; 84703; 85025; 96360; 99281; 99284

== ENCOUNTER → 2020-04-12 10:24 | Outpatient (CLI) | payer OTHER, SELFPAY ==
[2020-04-12 12:39] LABS: Progesterone, Total 1.89 ng/mL
== END ==
PROVIDERS: PCP Family Medicine; Referring Provider Obstetrics & Gynecology; Visit Provider Obstetrics & Gynecology
DX: N91.2 Amenorrhea, unspecified (principal); N97.0 Female infertility associated with anovulation; E28.2 Polycystic ovarian syndrome
CPT/HCPCS: 36415; 84144

== ENCOUNTER → 2020-04-30 10:36 | Outpatient (CLI) | payer OTHER, SELFPAY ==
[2020-04-30 12:35] LABS: HCG Quantitative /Beta subunit 55.9 mIU/mL
== END ==
PROVIDERS: PCP Family Medicine; Referring Provider Obstetrics & Gynecology; Visit Provider Obstetrics & Gynecology
DX: Z32.01 Encounter for pregnancy test, result positive (principal)
CPT/HCPCS: 36415; 84702

== ENCOUNTER → 2020-05-05 09:15 | Outpatient (CLI) | payer OTHER, SELFPAY ==
[2020-05-05 11:18] LABS: HCG Quantitative /Beta subunit 434.9 mIU/mL
== END ==
PROVIDERS: PCP Family Medicine; Referring Provider Obstetrics & Gynecology; Visit Provider Obstetrics & Gynecology
DX: Z34.81 Encounter for supervision of other normal pregnancy, first trimester (principal)
CPT/HCPCS: 36415; 84702

== ENCOUNTER → 2020-05-14 15:01 | Outpatient (CLI) | payer OTHER, SELFPAY ==
[2020-05-14 15:38] LABS: Add Manual Diff / Slide Review NO; Basophils Absolute Auto 0 /uL (0-100); Basophils Percent Auto 0.4 % (0-2); Eosinophils Absolute Auto 100 /uL (0-450); Eosinophils Percent Auto 1.8 % (2-4); Hematocrit 40.6 % (36-46); Hemoglobin 13.5 g/dL (12.0-16.0); Lymphocytes Absolute Auto 1600 /uL (1100-4500); Mean Corpuscular HGB Conc 33.3 % (30-36); Mean Corpuscular Hemoglobin 27.9 PG (26-34); Mean Corpuscular Volume 83.9 fL (80-100); Monocytes Absolute Auto 400 /uL (0-900); Monocytes Percent Auto 5.4 % (3-14); Neutrophils Absolute Auto 5500 /uL (1500-7000); Neutrophils Percent Auto 71.4 % (50-75); Platelet Count 295 X10^3/uL (150-400); Red Blood Cell Count 4.84 X10^6/uL (4.0-5.2); Red Cell Distribution Width 13.6 % (11.6-14.8); White Blood Cell Count 7.6 X10^3/uL (4.5-11.0)
[2020-05-14 15:52] LABS: Hemoglobin A1C% w Est Avg Glu 5.5 % (4.0-6.0)
[2020-05-14 15:55] LABS: Glucose 90 mg/dL (70-100)
[2020-05-15 08:08] LABS: RPR Screen Non Reactive (Non Reactive)
[2020-05-15 12:54] LABS: Varicella IgG Antibody 986 index (Immune >165)
[2020-05-15 16:30] LABS: HIV 1 & 2 Ab/Ag 4th Gen Combo NEGATIVE (NEGATIVE); Hep C Virus Ab w/Reflex Quant NEGATIVE s/c (NEGATIVE); Hepatitis B Surface Antigen NEGATIVE s/c (NEGATIVE); Rubella Antibody IgG 13.1 IU/mL (>15)
== END ==
PROVIDERS: PCP Family Medicine; Referring Provider Obstetrics & Gynecology; Visit Provider Obstetrics & Gynecology
DX: Z34.81 Encounter for supervision of other normal pregnancy, first trimester (principal)
CPT/HCPCS: 36415; 80055; 82947; 83036; 86787; 86803; 86850; 86900; 86901; 87389

== ENCOUNTER → 2020-05-28 12:39 | Outpatient (CLI) | payer OTHER, SELFPAY ==
[2020-05-28 14:10] LABS: Appearance Urine UA CLOUDY; Bilirubin Urine UA NEGATIVE (NEGATIVE); Color Urine UA YELLOW; Glucose Urine UA NEGATIVE (Negative); Ketones Urine UA NEGATIVE (NEGATIVE); Leukocyte Esterase Urine UA 3+ (NEGATIVE); Nitrite Urine UA NEGATIVE (Negative); Occult Blood Urine UA NEGATIVE (Negative); Protein Urine UA NEGATIVE (Negative); Specific Gravity Urine UA 1.015 (1.000-1.035); Urobilinogen Urine UA 0.2 E.U./dL (0.2)
[2020-05-28 14:20] LABS: RBC Urine None Seen (0-5/HPF)
[2020-05-28 14:39] LABS: Bacteria Urine Many (>30); WBC Urine 5-10/HPF (0-5/HPF)
== END ==
PROVIDERS: PCP Family Medicine; Referring Provider Family Medicine; Visit Provider Obstetrics & Gynecology
DX: Z34.81 Encounter for supervision of other normal pregnancy, first trimester (principal)
CPT/HCPCS: 81003; 81015; 87077; 87086; 87186

== ENCOUNTER → 2020-08-06 14:08 | Outpatient (CLI) | payer OTHER, SELFPAY ==
[2020-08-08 19:38] LABS: AFP, Serum 19.7 ng/mL (.); Calc Gestational Age EDD (.); Estriol, Free 2.08 ng/mL (.); Inhibin A, Dimeric 118.69 pg/mL (.); Inhibin A, MoM 1.05 (.); Maternal Ethnicity Caucasian (.); Maternal Weight 262 lbs (.); Number of Fetuses No (.); OSBR Risk 1 IN 10000 (.); Results Report (.); Test Results *Screen Negative* (.); hCG, Serum 19863 mIU/mL (.)
== END ==
PROVIDERS: PCP Family Medicine; Referring Provider Obstetrics & Gynecology; Visit Provider Obstetrics & Gynecology
DX: Z34.82 Encounter for supervision of other normal pregnancy, second trimester (principal); Z3A.17 17 weeks gestation of pregnancy
CPT/HCPCS: 36415; 82105; 82677; 84702; 86336

== ENCOUNTER → 2020-08-27 15:40 | Outpatient (CLI) | payer OTHER, SELFPAY ==
--- NOTE | 2020-08-27 15:41 | DI.US.S_ITS ---
PROCEDURE: US OB >= 14 WEEKS FETUS INDICATIONS: Anatomy Scan OUTSIDE/PRIOR DATING DATA: Last menstrual period (LMP): Unknown . LMP-based estimated date of delivery (ADOLFO): Not applicable . First dating scan (date and location): 06/11/2020, [facility] . Estimated date of delivery (ADOLFO) from first dating scan: 01/13/2021 . TECHNIQUE: Real-time scanning was performed of the fetus, with image documentation and biometric measurements. COMPARISON: [facility], OB <= 14 WEEKS FETUS, 05/14/2020, 14:56. [facility], OB >= 14 WEEKS FETUS, 12/09/2017, 15:08. FINDINGS: General: A single living intrauterine gestation is present. Presentation: Cephalic. Placenta: Placental position is posterior , without previa. Amniotic fluid index: 11.8 cm, normal range is 5-24 cm. heart rate: 150 beats per minute. Maternal cervical canal: 3.9 cm long. Normal lower limit is 2.5 cm. biometrics: Biparietal diameter: 4.9 centimeters: 20 weeks 6 days Head circumference: 18.2 centimeters: 20 weeks 4 days Abdominal circumference: 16 centimeters: 21 weeks 0 days Femur length: 3.5 centimeters: 20 weeks 6 days Estimated gestational age from initial scan: 20 weeks 1 day. Composite gestational age from present scan: 20 weeks 6 days Estimated weight and percentile: 388 grams, 87th percentile Measurement variability for biometric dating: +/- 7 days from 14 weeks to 15 weeks 6 days gestation, +/- 10 days from 16 weeks to 21 weeks 6 days gestation, +/- 2 weeks from 22 weeks to 27 weeks 6 days gestation, +/- 3 weeks for 28 weeks gestation or later. weight reference: 4500 g or EFW >90/95% is considered macrosomia or large for gestational age. EFW <10% is small for gestational age. EFW 5% or less is considered intra-uterine growth restriction. Anatomic survey: Neuro: Ventricles are non-dilated at less than 10 mm. Cisterna magna is normal at 3-11 mm. Cerebellum is normal in size and morphology. Nuchal skin fold: Normal at less than 6 mm between 14-21 weeks gestational age. Face: Nose and lips, facial profile are normal. Spine: No evidence for spina bifida. Heart: 4-chambered heart is present, with normal ventricular outflow tracts. Diaphragm: Diaphragm is intact. Stomach: Left-sided stomach is present. Kidneys: No hydronephrosis. Normal is less than 5 mm in 2nd trimester, less than 7 mm in 3rd trimester. Cord: 3-vessel cord has orthotopic insertion. Bladder: Normal in size. Extremities: All 4 extremities identified. IMPRESSION: 1. Normal anatomy. 2. Estimated gestational age is 20 weeks 1 day. Dictated by: Dick Villanueva M.D. on 08/27/2020 at 17:06 Approved by: Dick Villanueva M.D. on 08/27/2020 at 17:12
== END ==
PROVIDERS: PCP Family Medicine; Referring Provider Obstetrics & Gynecology; Visit Provider Obstetrics & Gynecology
DX: Z34.82 Encounter for supervision of other normal pregnancy, second trimester (principal); Z3A.20 20 weeks gestation of pregnancy
CPT/HCPCS: 76811

== ENCOUNTER → 2020-08-28 14:23 | Outpatient (CLI) | payer OTHER, SELFPAY ==
[2020-08-28] MEDS: COVID-19 VACC #1, MRNA(MOD) 100 MCG/0.5 ML VIAL IM (14:31)
== END ==
PROVIDERS: PCP Family Medicine; Visit Provider Internal Medicine
DX: Z23 Encounter for immunization (principal)
CPT/HCPCS: 0011A; 91301

== ENCOUNTER → 2020-09-09 14:21 | Outpatient (CLI) | payer OTHER, SELFPAY ==
[2020-09-09 16:17] LABS: Hematocrit 35.1 % (36-46); Hemoglobin 11.9 g/dL (12.0-16.0)
[2020-09-09 17:18] LABS: GTT (PREG) 1 Hour PP 50gm Dose 143 mg/dL (76-139)
== END ==
PROVIDERS: PCP Family Medicine; Referring Provider Obstetrics & Gynecology; Visit Provider Obstetrics & Gynecology
DX: Z34.82 Encounter for supervision of other normal pregnancy, second trimester (principal); Z3A.26 26 weeks gestation of pregnancy
CPT/HCPCS: 36415; 82950; 85014; 85018

== ENCOUNTER → 2020-09-11 09:40 | Outpatient (CLI) | payer OTHER, SELFPAY ==
[2020-09-11 11:01] LABS: Glucose Fasting Gestational 94 mg/dL (76-95)
[2020-09-11 12:36] LABS: Glucose 1 Hour Gest 188 mg/dL (76-180)
[2020-09-11 12:47] LABS: Glucose 2 Hour Gest 168 mg/dL (76-155)
[2020-09-11 12:55] LABS: Glucose Tol Interp,Gestational INTERPRETATION
[2020-09-11 17:03] LABS: Glucose 3 Hour Gest 90 mg/dL (76-140)
== END ==
PROVIDERS: PCP Family Medicine; Referring Provider Obstetrics & Gynecology; Visit Provider Obstetrics & Gynecology
DX: R73.09 Other abnormal glucose (principal)
CPT/HCPCS: 36415; 82951; 82952

== ENCOUNTER → 2020-09-24 14:58 | Outpatient (CLI) | payer OTHER, SELFPAY ==
[2020-09-24] MEDS: COVID-19 VACC #2, MRNA(MOD) 100 MCG/0.5 ML VIAL IM (15:04)
== END ==
PROVIDERS: PCP Family Medicine; Visit Provider Internal Medicine
DX: Z23 Encounter for immunization (principal)
CPT/HCPCS: 0012A; 91301

== ENCOUNTER → 2020-10-14 13:48 | Outpatient (CLI) | payer OTHER, SELFPAY ==
[2020-10-14 13:53] LABS: RBC Urine None Seen (0-5/HPF)
[2020-10-14 14:33] LABS: Appearance Urine UA CLOUDY; Bilirubin Urine UA NEGATIVE (NEGATIVE); Color Urine UA YELLOW; Glucose Urine UA NEGATIVE (Negative); Ketones Urine UA NEGATIVE (NEGATIVE); Leukocyte Esterase Urine UA NEGATIVE (NEGATIVE); Nitrite Urine UA NEGATIVE (Negative); Occult Blood Urine UA NEGATIVE (Negative); Protein Urine UA NEGATIVE (Negative); Specific Gravity Urine UA 1.015 (1.000-1.035); Urobilinogen Urine UA 0.2 E.U./dL (0.2)
[2020-10-14 14:41] LABS: Amorphous Sediment Urine 2+; Bacteria Urine Occasional (0-1); Mucus Urine 1+ (Negative); Squamous Epithelial Cell Urine 1-5 /HPF (0-5/HPF); WBC Urine 0-1/HPF (0-5/HPF); pH Urine UA 7.5 (4.5-8.0)
[2020-10-14 14:42] LABS: Culture Indicated Urine Cult Not Indicated
== END ==
PROVIDERS: PCP Family Medicine; Referring Provider Obstetrics & Gynecology; Visit Provider Obstetrics & Gynecology
DX: R30.0 Dysuria (principal); R82.90 Unspecified abnormal findings in urine
CPT/HCPCS: 81001

== ENCOUNTER 2020-11-20 14:05 | Outpatient (CLI) | payer OTHER, SELFPAY ==
[2020-11-20 14:46] LABS: Add Manual Diff / Slide Review NO; Basophils Absolute Auto 0 /uL (0-100); Basophils Percent Auto 0.2 % (0-2); Eosinophils Absolute Auto 100 /uL (0-450); Eosinophils Percent Auto 0.7 % (2-4); Hematocrit 33.5 % (36-46); Hemoglobin 11.2 g/dL (12.0-16.0); Lymphocytes Absolute Auto 1100 /uL (1100-4500); Lymphocytes Percent Auto 12.1 % (25-40); Mean Corpuscular HGB Conc 33.4 % (30-36); Mean Corpuscular Hemoglobin 28.4 PG (26-34); Mean Corpuscular Volume 84.9 fL (80-100); Monocytes Absolute Auto 400 /uL (0-900); Monocytes Percent Auto 4.4 % (3-14); Neutrophils Absolute Auto 7400 /uL (1500-7000); Neutrophils Percent Auto 82.6 % (50-75); Platelet Count 254 X10^3/uL (150-400); Red Blood Cell Count 3.94 X10^6/uL (4.0-5.2); Red Cell Distribution Width 14.5 % (11.6-14.8)
[2020-11-20 14:57] LABS: Aspartate Aminotransferase 18 IU/L (14-36); BUN Creatinine Ratio 10.9 (6-22); Blood Urea Nitrogen 7 mg/dL (7-17); Estimated Glomerular Filt Rate > 60.0 mL/min (>60); Uric Acid 6.8 mg/dL (2.5-6.2)
== END 2020-11-20 15:10 | disposition home or self-care (01) ==
LOC: LABOR 14:25 → OB 11-21 08:46
PROVIDERS: PCP Family Medicine; Referring Provider Obstetrics & Gynecology; Visit Provider Obstetrics & Gynecology
DX: O13.3 Gestational [pregnancy-induced] hypertension without significant proteinuria, third trimester (principal); O24.414 Gestational diabetes mellitus in pregnancy, insulin controlled; Z3A.32 32 weeks gestation of pregnancy
CPT/HCPCS: 36415; 59025; 84450; 84550; 85025; G0378; G0379

== ENCOUNTER 2020-11-26 12:19 | Outpatient (CLI) | payer OTHER, SELFPAY | END 2020-11-26 13:00 | disposition home or self-care (01) | LOC: LABOR 12:28 → OB 11-27 08:30 | PROVIDERS: PCP Family Medicine; Referring Provider Obstetrics & Gynecology; Visit Provider Obstetrics & Gynecology | DX: O47.03 False labor before 37 completed weeks of gestation, third trimester (principal); O24.419 Gestational diabetes mellitus in pregnancy, unspecified control; O13.3 Gestational [pregnancy-induced] hypertension without significant proteinuria, third trimester; Z3A.33 33 weeks gestation of pregnancy | CPT/HCPCS: 59025; G0378; G0379 ==

== ENCOUNTER 2020-12-03 13:46 | Observation (INO) | payer OTHER, SELFPAY ==
[2020-12-03 14:09] LABS: Add Manual Diff / Slide Review NO; Basophils Absolute Auto 0 /uL (0-100); Basophils Percent Auto 0.1 % (0-2); Eosinophils Absolute Auto 0 /uL (0-450); Eosinophils Percent Auto 0.7 % (2-4); Hematocrit 32.3 % (36-46); Hemoglobin 10.7 g/dL (12.0-16.0); Lymphocytes Absolute Auto 1000 /uL (1100-4500); Lymphocytes Percent Auto 13.4 % (25-40); Mean Corpuscular HGB Conc 33.2 % (30-36); Mean Corpuscular Hemoglobin 28.5 PG (26-34); Mean Corpuscular Volume 85.9 fL (80-100); Monocytes Absolute Auto 300 /uL (0-900); Monocytes Percent Auto 3.8 % (3-14); Neutrophils Absolute Auto 5900 /uL (1500-7000); Platelet Count 210 X10^3/uL (150-400); Red Blood Cell Count 3.76 X10^6/uL (4.0-5.2); White Blood Cell Count 7.2 X10^3/uL (4.5-11.0)
[2020-12-03 14:36] LABS: Aspartate Aminotransferase 18 IU/L (14-36); BUN Creatinine Ratio 14.5 (6-22); Blood Urea Nitrogen 10 mg/dL (7-17); Estimated Glomerular Filt Rate > 60.0 mL/min (>60); Uric Acid 7.2 mg/dL (2.5-6.2)
[2020-12-03 17:10] LABS: Creatinine Urine Random 62.9 mg/dL; Protein (Total) Urine Random 24 mg/dL (0-12); Protein Creatinine Ratio Urine 0.38 GRAM/24H
== END 2020-12-03 15:45 | disposition home or self-care (01) ==
PROVIDERS: Admitting Provider Obstetrics & Gynecology; PCP Family Medicine; Referring Provider Obstetrics & Gynecology; Visit Provider Obstetrics & Gynecology
DX: O13.3 Gestational [pregnancy-induced] hypertension without significant proteinuria, third trimester (principal); O24.414 Gestational diabetes mellitus in pregnancy, insulin controlled; O47.03 False labor before 37 completed weeks of gestation, third trimester; Z3A.34 34 weeks gestation of pregnancy
CPT/HCPCS: 36415; 59025; 82570; 84156; 84450; 84550; 85025; G0378; G0379

== ENCOUNTER 2020-12-06 12:18 | Outpatient (CLI) | payer OTHER, SELFPAY ==
--- NOTE | 2020-12-06 12:57 | P.TNLD_ITS ---
Visit Information Visit Information Date of evaluation: 12/06/20 Primary OB Provider: Julio Hernandez Reason for Evaluation: Yes non-stress test Comments/Additional reasons for admission: Patient was brought in for elevated blood pressures. She has been getting blood pressures ranging 145-160 over 90s to 105. She checks her blood pressure on a regular basis. She has been on labetalol 200 mg b.i.d.. Should called last night and we had increased her labetalol to 300 mg last night. She continued to have elevated blood pressure and was brought in. She currently is not having any headaches that are significant she ruled intermittently has a right-sided mild headache. She does not feel like that is anything significantly changed. She does feel like she is having a little bit of swelling in her legs. But no other changes. No visual symptoms. No abdominal pain. Baby has been moving well. Otherwise no changes. Vital Signs Vital Signs: Blood pressure is 125/83 and 111/82 [facility] Medical History (Updated 11/20/20 @ 13:56 by Micaela Russ MD) Anxiety Back injury (~2016) Chronic pain Fibromyalgia JOSE DE JESUS (generalized anxiety disorder) H/O gestational diabetes in prior , currently (~2018) Migraines Morbid obesity with BMI of 40.0-44.9, adult Spontaneous vaginal delivery (~12/13/17) SVT (supraventricular tachycardia) Surgical History (Updated 05/12/20 @ 14:03 by Adeola Pineda RN) No history of previous surgery Family History (Updated 05/12/20 @ 14:01 by Adeola Pineda RN) Mother No problems noted. 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 Lungs are clear. Heart regular rate and rhythm. Abdomen soft positive bowel sounds nontender extremities without significant edema. Normal reflexes negative clonus Diagnosis, Plan/Disposition Plan/Disposition Plan: 34+ week intrauterine with history of hypertension and need for induction at 37 weeks with previous now with elevated blood pressure at home despite medication. Blood pressure here looks better. NST is reactive at this point and will obtain labs. Will need to check home blood pressure cuff to see and make sure adequate. At this point if labs are normal appears as if we can go home and follow-up with scheduled NST but we will see what labs show and re-evaluate after that. Patient understands questions answered
[2020-12-06 13:25] LABS: Add Manual Diff / Slide Review NO; Basophils Absolute Auto 0 /uL (0-100); Basophils Percent Auto 0.3 % (0-2); Eosinophils Absolute Auto 100 /uL (0-450); Eosinophils Percent Auto 0.9 % (2-4); Hematocrit 30.7 % (36-46); Hemoglobin 10.4 g/dL (12.0-16.0); Lymphocytes Absolute Auto 1200 /uL (1100-4500); Lymphocytes Percent Auto 14.9 % (25-40); Mean Corpuscular HGB Conc 33.9 % (30-36); Mean Corpuscular Volume 85.6 fL (80-100); Monocytes Absolute Auto 400 /uL (0-900); Monocytes Percent Auto 4.5 % (3-14); Neutrophils Absolute Auto 6400 /uL (1500-7000); Neutrophils Percent Auto 79.4 % (50-75); Platelet Count 203 X10^3/uL (150-400); Red Blood Cell Count 3.59 X10^6/uL (4.0-5.2); Red Cell Distribution Width 15.4 % (11.6-14.8); White Blood Cell Count 8.1 X10^3/uL (4.5-11.0)
[2020-12-06 13:32] LABS: Bilirubin Urine UA NEGATIVE (NEGATIVE); Color Urine UA YELLOW; Glucose Urine UA NEGATIVE (Negative); Ketones Urine UA NEGATIVE (NEGATIVE); Leukocyte Esterase Urine UA 1+ (NEGATIVE); Nitrite Urine UA NEGATIVE (Negative); Occult Blood Urine UA NEGATIVE (Negative); Protein Urine UA TRACE (Negative); Specific Gravity Urine UA <=1.005 (1.000-1.035); Urobilinogen Urine UA 0.2 E.U./dL (0.2)
[2020-12-06 13:33] LABS: Appearance Urine UA Slightly Cloudy
[2020-12-06 13:34] LABS: Bacteria Urine None Seen
[2020-12-06 13:36] LABS: Aspartate Aminotransferase 19 IU/L (14-36); BUN Creatinine Ratio 8.3 (6-22); Blood Urea Nitrogen 7 mg/dL (7-17); Estimated Glomerular Filt Rate > 60.0 mL/min (>60); Uric Acid 7.6 mg/dL (2.5-6.2)
[2020-12-06 13:40] LABS: Culture Indicated Urine Specimen Cultured; RBC Urine 0-1/HPF (0-5/HPF); Squamous Epithelial Cell Urine 1-5 /HPF (0-5/HPF); WBC Urine 1-5/HPF (0-5/HPF)
--- NOTE | 2020-12-06 14:02 | P.PN_ITS ---
Subjective Subjective Date Patient Seen: 12/06/20 Time Patient Seen: 14:03 Interval history: Feeling better. Objective Labs Result Diagrams: 12/06/20 13:15 12/06/20 13:15 Labs: Laboratory Results - last 24 hr 12/06/20 12/06/20 12/06/20 13:00 13:15 13:15 WBC 8.1 RBC 3.59 L Hgb 10.4 L Hct 30.7 L MCV 85.6 MCH 29.0 MCHC 33.9 RDW 15.4 H Plt Count 203 Neut % (Auto) 79.4 H Lymph % (Auto) 14.9 L [place] % (Auto) 4.5 Eos % (Auto) 0.9 L Baso % (Auto) 0.3 Neut # (Auto) 6400 Lymph # (Auto) 1200 [place] # (Auto) 400 Eos # (Auto) 100 Baso # (Auto) 0 BUN 7 Creatinine 0.84 Estimated GFR > 60.0 BUN/Creatinine Ratio 8.3 Uric Acid 7.6 H AST 19 Urine Color Yellow Urine Appearance Slightly cloudy Urine pH 7.0 Ur Specific [place] <=1.005 Urine Protein Trace H Urine Glucose (UA) Negative Urine Ketones Negative Urine Occult Blood Negative Urine Nitrate Negative Urine Bilirubin Negative Urine Urobilinogen 0.2 Ur Leukocyte Esterase 1+ H Urine RBC 0-1/hpf Urine WBC 1-5/hpf Ur Squamous Epith Cells 1-5 /hpf Urine Bacteria None seen Ur Culture Indicated? Specimen cultured FOR[facility]LY [facility], 1928–1983 Medical History (Updated 11/20/20 @ 13:56 by Micaela Russ MD) Anxiety Back injury (~2016) Chronic pain Fibromyalgia JOSE DE JESUS (generalized anxiety disorder) H/O gestational diabetes in prior , currently (~2017) Migraines Morbid obesity with BMI of 40.0-44.9, adult Spontaneous vaginal delivery (~12/13/17) SVT (supraventricular tachycardia) Surgical History (Updated 05/12/20 @ 14:03 by Adeola Pineda RN) No history of previous surgery Family History (Updated 05/12/20 @ 14:01 by Adeola Pineda, PETAR) Mother No problems noted. 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 Discussed with Dr. Russ will increase her labetalol to 200 t.i.d. she will be seen this week she has an ST or T scheduled. I would like her to bring her blood pressure cuff in when she comes and have it checked. She will be followed as an outpatient by Dr. Russ she will call me this weekend if she has any questions or changes in symptoms which we discussed
== END 2020-12-06 14:24 | disposition home or self-care (01) ==
LOC: OB 12-08 09:50
PROVIDERS: PCP Family Medicine; Referring Provider Family Medicine; Visit Provider Family Medicine
DX: O13.3 Gestational [pregnancy-induced] hypertension without significant proteinuria, third trimester (principal); O24.414 Gestational diabetes mellitus in pregnancy, insulin controlled; Z3A.34 34 weeks gestation of pregnancy
CPT/HCPCS: 36415; 59025; 81003; 81015; 84450; 84550; 85025; 87086; G0378; G0379

== ENCOUNTER 2020-12-10 10:49 | Observation (INO) | payer OTHER, SELFPAY ==
[2020-12-10 12:18] LABS: Add Manual Diff / Slide Review NO; Basophils Absolute Auto 0 /uL (0-100); Basophils Percent Auto 0.4 % (0-2); Eosinophils Absolute Auto 100 /uL (0-450); Eosinophils Percent Auto 0.9 % (2-4); Hemoglobin 10.2 g/dL (12.0-16.0); Lymphocytes Absolute Auto 1100 /uL (1100-4500); Lymphocytes Percent Auto 13.5 % (25-40); Mean Corpuscular HGB Conc 32.9 % (30-36); Mean Corpuscular Hemoglobin 28.3 PG (26-34); Mean Corpuscular Volume 85.9 fL (80-100); Monocytes Absolute Auto 400 /uL (0-900); Monocytes Percent Auto 4.3 % (3-14); Neutrophils Absolute Auto 6700 /uL (1500-7000); Neutrophils Percent Auto 80.9 % (50-75); Platelet Count 225 X10^3/uL (150-400); Red Cell Distribution Width 15.5 % (11.6-14.8); White Blood Cell Count 8.3 X10^3/uL (4.5-11.0)
[2020-12-10 12:32] LABS: Aspartate Aminotransferase 19 IU/L (14-36); Blood Urea Nitrogen 7 mg/dL (7-17); Estimated Glomerular Filt Rate > 60.0 mL/min (>60); Uric Acid 7.6 mg/dL (2.5-6.2)
[2020-12-10 12:40] LABS: Creatinine Urine Random 227.5 mg/dL; Protein (Total) Urine Random 117 mg/dL (0-12); Protein Creatinine Ratio Urine 0.51 GRAM/24H
--- NOTE | 2020-12-10 13:03 | P.TNLD_ITS ---
Visit Information Visit Information Date of evaluation: 12/10/20 Primary OB Provider: Micaela Russ On-call OB Provider: Jessica Burgess Reason for Evaluation: Yes non-stress test non-stress test reason: hypertension/pre-eclampsia Comments/Additional reasons for admission: 25yo at 35w2d here for NST and labs due to pre-eclampsia without severe features and GDMA2. Pt denies any significant vision changes, RUQ pain, headaches or acutely worsening swelling. She is feeling her baby move regularly. No vaginal bleeding, LOF, or contractions. [facility] Medical History (Updated 12/10/20 @ 13:12 by Jessica Burgess MD) Anxiety Back injury (~2016) Chronic pain Fibromyalgia JOSE DE JESUS (generalized anxiety disorder) H/O gestational diabetes in prior , currently (~2017) Migraines Morbid obesity with BMI of 40.0-44.9, adult Spontaneous vaginal delivery (~12/13/17) SVT (supraventricular tachycardia) Surgical History (Updated 05/12/20 @ 14:03 by Adeola Pineda, RN) No history of previous surgery Family History (Updated 05/12/20 @ 14:01 by Adeola Pineda, RN) Mother No problems noted. 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.) occupational status: unemployed current occupational exposures/hazards: No kevin/hindu: [employer] special kevin needs: No (non-rastafarian ) Smoking Status: Never smoker second hand exposure: No alcohol intake: former (pre- : rare use) substance use type: does not use Objective Labs Result Diagrams: 12/10/20 12:11 12/10/20 12:11 Labs: Laboratory Results - last 24 hr 12/10/20 12/10/20 12/10/20 12:11 12:11 12:11 WBC 8.3 RBC 3.60 L Hgb 10.2 L Hct 31.0 L MCV 85.9 MCH 28.3 MCHC 32.9 RDW 15.5 H Plt Count 225 Neut % (Auto) 80.9 H Lymph % (Auto) 13.5 L [place] % (Auto) 4.3 Eos % (Auto) 0.9 L Baso % (Auto) 0.4 Neut # (Auto) 6700 Lymph # (Auto) 1100 [place] # (Auto) 400 Eos # (Auto) 100 Baso # (Auto) 0 BUN 7 Creatinine 0.70 Estimated GFR > 60.0 BUN/Creatinine Ratio 10.0 Uric Acid 7.6 H AST 19 U Random Total Protein 117 H Urine Creatinine 227.5 Protein/Creatinin Ratio 0.51 Evaluation Evaluation Baseline heart rate: 125 Variability: Moderate (11-25) monitor accelerations: Present Monitor Decelerations: Absent Status: Category l Diagnosis, Plan/Disposition Final Diagnosis (1) 35 weeks gestation of : Status: Acute (2) Gestational diabetes requiring insulin: Status: Acute (3) Pre-eclampsia: Status: Acute Plan/Disposition Plan: 25yo at 35w2d here for NST and labs due to pre-eclampsia without severe features and GDMA2. Labs again with elevated pr/cr ratio. No evidence of HELLP. BP initially slightly elevated, but not to severe range, then normalized. Pt is asymptomatic. Pt will continue current medications. F/U with primary OB already scheduled for 12/12. Continue regular testing. OB Disposition: home
== END 2020-12-10 13:15 | disposition home or self-care (01) ==
PROVIDERS: Admitting Provider Obstetrics & Gynecology; PCP Family Medicine; Referring Provider Obstetrics & Gynecology; Visit Provider Obstetrics & Gynecology
DX: O14.03 Mild to moderate pre-eclampsia, third trimester (principal); O24.419 Gestational diabetes mellitus in pregnancy, unspecified control; Z3A.35 35 weeks gestation of pregnancy
CPT/HCPCS: 36415; 59025; 59050; 82570; 84156; 84450; 84550; 85025; G0378; G0379

== ENCOUNTER → 2020-12-12 10:21 | Outpatient (CLI) | payer OTHER, SELFPAY ==
[2020-12-13 10:16] LABS: Strep Grp B PCR NEG for Grp B Strep
== END ==
PROVIDERS: PCP Family Medicine; Visit Provider Obstetrics & Gynecology
DX: Z34.83 Encounter for supervision of other normal pregnancy, third trimester (principal); Z3A.35 35 weeks gestation of pregnancy
CPT/HCPCS: 87653

== ENCOUNTER 2020-12-15 15:02 | Observation (INO) | payer OTHER, SELFPAY ==
[2020-12-15 15:51] LABS: Add Manual Diff / Slide Review NO; Basophils Absolute Auto 0 /uL (0-100); Basophils Percent Auto 0.4 % (0-2); Eosinophils Absolute Auto 100 /uL (0-450); Eosinophils Percent Auto 0.7 % (2-4); Hematocrit 31.4 % (36-46); Hemoglobin 10.3 g/dL (12.0-16.0); Lymphocytes Absolute Auto 800 /uL (1100-4500); Lymphocytes Percent Auto 11.3 % (25-40); Mean Corpuscular HGB Conc 32.8 % (30-36); Mean Corpuscular Hemoglobin 28.2 PG (26-34); Mean Corpuscular Volume 85.9 fL (80-100); Monocytes Absolute Auto 300 /uL (0-900); Monocytes Percent Auto 4.2 % (3-14); Neutrophils Absolute Auto 5900 /uL (1500-7000); Neutrophils Percent Auto 83.4 % (50-75); Platelet Count 195 X10^3/uL (150-400); Red Blood Cell Count 3.66 X10^6/uL (4.0-5.2); Red Cell Distribution Width 15.3 % (11.6-14.8); White Blood Cell Count 7.1 X10^3/uL (4.5-11.0)
[2020-12-15 16:06] LABS: Aspartate Aminotransferase 36 IU/L (14-36); BUN Creatinine Ratio 14.1 (6-22); Blood Urea Nitrogen 10 mg/dL (7-17); Estimated Glomerular Filt Rate > 60.0 mL/min (>60); Uric Acid 7.8 mg/dL (2.5-6.2)
[2020-12-15 17:22] LABS: Protein (Total) Urine Random 537 mg/dL (0-12)
== END 2020-12-15 18:40 | disposition home or self-care (01) ==
PROVIDERS: Admitting Provider Obstetrics & Gynecology; PCP Family Medicine; Referring Provider Obstetrics & Gynecology; Visit Provider Obstetrics & Gynecology
DX: O24.419 Gestational diabetes mellitus in pregnancy, unspecified control (principal); O13.3 Gestational [pregnancy-induced] hypertension without significant proteinuria, third trimester; Z3A.36 36 weeks gestation of pregnancy
CPT/HCPCS: 36415; 59025; 59050; 84156; 84450; 84550; 85025; G0378; G0379

== ENCOUNTER 2020-12-18 19:06 | Inpatient (IN) | payer OTHER, SELFPAY ==
[2020-12-18] MEDS: DINOPROSTONE VAG (CERVIDIL) 10 MG VAG (20:41)
[2020-12-18 20:48] VITALS: BP 140/95
[2020-12-18 20:49] LABS: Add Manual Diff / Slide Review NO; Basophils Absolute Auto 0 /uL (0-100); Basophils Percent Auto 0.4 % (0-2); Eosinophils Absolute Auto 100 /uL (0-450); Eosinophils Percent Auto 0.8 % (2-4); Hematocrit 32.8 % (36-46); Lymphocytes Absolute Auto 1200 /uL (1100-4500); Lymphocytes Percent Auto 12.8 % (25-40); Mean Corpuscular HGB Conc 33.6 % (30-36); Mean Corpuscular Volume 86.4 fL (80-100); Monocytes Absolute Auto 500 /uL (0-900); Monocytes Percent Auto 4.9 % (3-14); Neutrophils Absolute Auto 7600 /uL (1500-7000); Neutrophils Percent Auto 81.1 % (50-75); Platelet Count 233 X10^3/uL (150-400); Red Blood Cell Count 3.79 X10^6/uL (4.0-5.2); Red Cell Distribution Width 15.4 % (11.6-14.8); White Blood Cell Count 9.4 X10^3/uL (4.5-11.0)
[2020-12-18 21:25] VITALS: BP 140/95; PULSE 80
[2020-12-18] MEDS: LABETALOL 100 MG TABLET 200 MG PO (21:25)
[2020-12-18] MEDS: SERTRALINE 50 MG TABLET 150 MG PO (21:26)
[2020-12-18] MEDS: ZOLPIDEM 5 MG TABLET 10 MG PO (23:18)
[2020-12-19 00:04] VITALS: BP 157/98; PULSE 87
[2020-12-19 00:38] LABS: COVID19 - ADMIT (NP swab/PCR) Negative (Negative)
[2020-12-19 01:20] LABS: COVID19 - ADMIT (NP swab/PCR) Negative (Negative)
[2020-12-19] MEDS: ACETAMINOPHEN 325 MG TABLET 975 MG PO (06:08)
--- NOTE | 2020-12-19 07:28 | PM.AN.REGBLK ---
Regional Block Pre-procedure Procedure: Continuous Lumbar Epidural for L&D Attending OB provider: Micaela Russ PMH/ROS narrative: MDD Gest DM PIH Hx: No personal or family history of anesthesia problems. PSH/Anesthesia history narrative: Previous epidural without issues Exam narrative: MP3 RRR CTAB ASA Class: III Labs: Hct 32.8 % (36-46) L 12/18/20 19:45 Plt Count 233 X10^3/uL (150-400) 12/18/20 19:45 Medications: Current Medications Generic Name Dose Route Start Last Admin Trade Name Freq PRN Reason Stop Dose Admin Acetaminophen 975 mg 12/19/20 06:01 12/19/20 06:08 Acetaminophen 325 Mg Tablet PO 975 mg Q8H PRN Administration Pain, Mild (1-3) Calcium Carbonate 500 mg 12/18/20 19:45 Calcium Carbonate 500 Mg Tab PO Q2HR PRN Dyspepsia Carboprost Tromethamine 250 mcg 12/18/20 19:45 Carboprost 250 Mcg/Ml Ampul IM Q90M PRN Bleeding Fentanyl 50 mcg 12/18/20 19:45 Fentanyl 100 Mcg/2 Ml Inj IV Q1H PRN Pain, Moderate (4-6) Lactated Ringer's 1,000 mls @ 100 mls/hr 12/18/20 19:45 Lactated Ringers IV CONT HARIS Oxytocin/Lactated Ringer's 30 unit in 500 mls @ 200 mls/hr 12/18/20 19:45 Oxytocin Premix IV CONT PRN Bleeding Protocol Tranexamic Acid 1,000 mg/ 100 mls @ 200 mls/hr 12/18/20 19:45 Sodium Chloride IV NOW PRN Bleeding Oxytocin/Lactated Ringer's 30 unit in 500 mls @ 3 mls/hr 12/19/20 08:00 Oxytocin Premix IV TITRATE HARIS Protocol 3 MILLIUNIT/MIN Labetalol HCl 200 mg 12/18/20 21:15 12/18/20 21:25 Labetalol 100 Mg Tablet PO 200 mg BID HARIS Administration Metformin HCl 500 mg 12/19/20 08:00 Metformin Hcl 500 Mg Tablet PO 0800 HARIS Methylergonovine Maleate 0.2 mg 12/18/20 19:45 Methylergonovine 0.2 Mg Tablet PO Q6HR PRN Heavy Bleeding Methylergonovine Maleate 0.2 mg 12/18/20 19:45 Methylergonovine 0.2 Mg/Ml Vial IM NOW PRN Bleeding Metoclopramide HCl 10 mg 12/18/20 19:45 Metoclopramide 10 Mg/2 Ml Inj IV NOW PRN Nausea And Vomiting Misoprostol 800 mcg 12/18/20 19:45 Misoprostol 200 Mcg Tablet AK NOW PRN Bleeding Misoprostol 1,000 mcg 12/18/20 19:45 Misoprostol 200 Mcg Tablet AK NOW PRN Bleeding Misoprostol 400 mcg 12/18/20 19:45 Misoprostol 200 Mcg Tablet SL NOW PRN Bleeding Naloxone HCl 0.2 mg 12/18/20 19:45 Naloxone 0.4 Mg/Ml Vial IV Q2MIN PRN Opiate Reversal Ondansetron HCl 4 mg 12/18/20 19:45 Ondansetron 4 Mg/2 Ml Inj IV Q4HR PRN Nausea And Vomiting Oxytocin 10 unit 12/18/20 19:45 Oxytocin 10 Unit/Ml Vial IM NOW PRN Bleeding Sertraline HCl 150 mg 12/18/20 21:15 12/18/20 21:26 Sertraline 50 Mg Tablet PO 150 mg BEDTIME HARIS Administration Zolpidem Tartrate 10 mg 12/18/20 21:07 12/18/20 23:18 Zolpidem 5 Mg Tablet PO 10 mg BEDTIME PRN Administration Sleep Allergies: Allergies Allergy/AdvReac Type Severity Reaction Status Date / Time No Known Drug Allergies Allergy Verified 12/03/20 13:12 Procedure Insertion date: 12/19/20 Insertion time: 07:14 Prep/Local: betadine x3 (chloroprep) and 1% lidocaine Interspace: L3-4 Patient position: sitting Needle: 18 gauge Behzadtead Loss of resistance with: saline GABRIELE at (cm): 8 Catheter placed at SKIN (cm): 13 Catheter in SPACE (cm): 5 Insertion: Yes CSF Initial Medications TEST DOSE time: 07:14 TEST DOSE: 1.5% lidocaine with epinephrine 1:200k (mL): 5 BOLUS DOSE time: 07:15 BOLUS DOSE (mL): 2 BOLUS DOSE med: other (10mcg fentanyl intrathecally, 90mcg fentanyl via epidural catheter) Infusion INFUSION: 0.0625% bupivacaine and with fentanyl 2 mcg/mL Initial rate (mL/hr): 12 Post-procedure Anesthesia time START: 06:59 Anesthesia time END: 08:42
--- NOTE | 2020-12-19 08:26 | PM.OBHP.1 ---
OB HPI Date/Time Date of admission: 12/18/20 Date Patient Seen: 12/19/20 Time Patient Seen: 06:00 History of Present Condition Chief complaint: : 3 Para: 1 Estimated Date of Delivery: 01/12/21 Narrative: Christa Salmon is a 25 year old female 3 para 1 at 36-,4/7 weeks gestation who presented last evening for cervical ripening prior to induction of labor due to preeclampsia. Indications Indication for induction OB: gestational HTN/pre-eclampsia and gestational diabetes (On insulin) History of Present care: good care, initiated at week # (5), number of visits (11) and pounds weight gain (35) Dating criteria: LMP confirmed by 1st trimester US Ultrasounds: normal 1st trimester US and normal mid trimester US Obstetrical complications: gestational diabetes and gestational hypertension Medical complications: none Preadmission Labs Blood type: A (+) positive -: Antibody screen: negative, GBS status: negative, HBsAG: negative, HIV: negative and RPR/VDLR: negative -: Chlamydia screen: not detected and Gonorrhea screen: not detected -: Rubella: immune and Varicella: immune HCT: 32.8 HCAB: negative PAP: Normal Quad screen: Normal Urine: Negative 1 hr GTT: 143 3 hr GTT: 1 hr (188), 2 hr (168) and 3 hr (90) Fasting blood glucose: 94 Prior (ies) History: x 1 at 37 wks SAB Evaluation Evaluation Baseline heart rate: 135 Variability: Moderate (11-25) monitor accelerations: Present Monitor Decelerations: Absent Contraction Frequency (minutes): 4 Uterine Contraction Intensity: Moderate Status: Category l Cervical dilation (cm): 5 Cervical effacement (%): 80 station: 0 [facility] Medical History (Updated 12/10/20 @ 13:12 by Jessica Burgess MD) Anxiety Back injury (~2016) Chronic pain Fibromyalgia JOSE DE JESUS (generalized anxiety disorder) H/O gestational diabetes in prior , currently (~2017) Migraines Morbid obesity with BMI of 40.0-44.9, adult Spontaneous vaginal delivery (~12/13/17) SVT (supraventricular tachycardia) Surgical History (Updated 05/12/20 @ 14:03 by Adeola Pineda RN) No history of previous surgery Family History (Updated 05/12/20 @ 14:01 by Adeola Pineda RN) Mother No problems noted. 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.) occupational status: unemployed current occupational exposures/hazards: No kevin/cheondoism: [employer] special kevin needs: No (non-mormonism ) Smoking Status: Never smoker second hand exposure: No alcohol intake: former (pre- : rare use) substance use type: does not use Meds Home Medications and Allergies Home Medications Medication Instructions Recorded Confirmed Type prenat.vits,monse,qot-nbvf-pcxmr 1 tab PO DAILY 05/12/20 12/18/20 History blood-glucose meter #1 ea 09/12/20 12/18/20 Rx lancets 30 gauge and blood glucose #100 ea 09/12/20 12/18/20 Rx strips combo pack sertraline 100 mg tablet 150 mg PO DAILY #135 tab 10/06/20 12/18/20 Rx insulin NPH isoph U-100 human 100 10 unit SUBCUT .qhs #15 ml 10/27/20 12/18/20 Rx unit/mL (3 mL) subcutaneous pen (Humulin N NPH U-100 Insulin KwikPen) pen needle, diabetic 31 gauge x #50 ea 10/27/20 12/18/20 Rx 3/16 (Lite Touch Insulin Pen [place]) insulin syringe-needle U-100 1 mL #100 ea 10/29/20 12/18/20 Rx 31 gauge x 5/16 (BD Insulin Syringe Ultra-Fine) labetalol 100 mg tablet 200 mg PO BID #90 tab 11/24/20 12/18/20 Rx metformin 500 mg tablet 500 mg PO QAM 12/18/20 12/18/20 History Allergies Allergy/AdvReac Type Severity Reaction Status Date / Time No Known Drug Allergies Allergy Verified 12/03/20 13:12 Exam Narrative Exam Narrative: Generally: A well-developed, well-nourished female, in mild distress secondary to contraction Lungs: Clear to auscultation bilaterally Cardiovascular: Regular rate and rhythm Fundal height: 38 cm Estimated weight: 7 lb Extremities: 1+ edema, 1+ DTRs, no clonus Objective Labs Result Diagrams: 12/18/20 19:45 Labs: Laboratory Results - last 24 hr 12/18/20 12/18/20 12/18/20 19:45 19:45 19:45 WBC 9.4 RBC 3.79 L Hgb 11.0 L Hct 32.8 L MCV 86.4 MCH 29.0 MCHC 33.6 RDW 15.4 H Plt Count 233 Neut % (Auto) 81.1 H Lymph % (Auto) 12.8 L [place] % (Auto) 4.9 Eos % (Auto) 0.8 L Baso % (Auto) 0.4 Neut # (Auto) 7600 H Lymph # (Auto) 1200 [place] # (Auto) 500 Eos # (Auto) 100 Baso # (Auto) 0 SARS-CoV-2 (PCR) Negative Blood Type A Positive Antibody Screen Negative 12/18/20 20:55 WBC RBC Hgb Hct MCV MCH MCHC RDW Plt Count Neut % (Auto) Lymph % (Auto) [place] % (Auto) Eos % (Auto) Baso % (Auto) Neut # (Auto) Lymph # (Auto) [place] # (Auto) Eos # (Auto) Baso # (Auto) SARS-CoV-2 (PCR) Negative Blood Type Antibody Screen Assessment and Plan Assessment and Plan Assessment and Plan narrative: Assessment: Patient is a 25-year-old 3 para 1 at 36 and 4 seventh weeks gestation status post Cervidil last night which put her into active labor Plan: Epidural as necessary Expected management to spontaneous vaginal delivery Pediatrics notified Time Spent with Patient Total time spent with greater than 50% in coordination of care (as documented) at patient's floor/unit and/or counseling patient:: 15-24 minutes
[2020-12-19 08:31] VITALS: BP 171/100; PULSE 92
[2020-12-19] MEDS: LABETALOL 100 MG TABLET 200 MG PO ×2 (08:31→20:03)
[2020-12-19] MEDS: OXYTOCIN PREMIX 30 UNIT/500 ML PLAST..BAG IV (08:45)
--- NOTE | 2020-12-19 08:52 | PM.OBPRVD ---
Events: Induced HTN, Pre-Eclampsia and Labor Induction Labor & Delivery Delivery date: 12/19/20 Intrapartal Events: Mild Preeclampsia Cervical ripening method: per Cervidil protocol Induction method: none Delivery augmentation: rupture of membranes Delivery monitor: external FHT and external uterine Route of delivery: Episiotomy description: None L&D Laceration Description: None Estimated blood loss (mL): 100 Anesthesia Type: Epidural Complications: None Narrative: Patient complete and pushed for 4 minutes. At 8:42 a.m., a live male delivered spontaneously in the SAMANTHA presentation. No nuchal cord. The remainder of the body delivered without difficulty and was placed on mom's abdomen. The cord was double clamped and cut. And the infant was taken over to the warmer with RN and RT. Cord bloods were obtained. The placenta delivered intact with a three-vessel cord at 8:45 a.m.. Pitocin was given in the IV fluids. No lacerations. Estimated blood loss 100 cc. Apgars 5 at 1 minute 5 at 5 minutes and 9 at 10 minutes. Weight 6 lb 5 oz. mom and infant stable to recovery. Baby 1: Infant gender: Male Presentation: vertex Position: Left Occiput Anterior Placenta delivery description: Spontaneous Cord Vessel Description: 3 Vessels and Clamped/Cut score (1 min): 5 score (5 min): 5 score (10 min): 9 weight: 6 lb 5 oz Plan for aftercare: Routine care
[2020-12-19 09:51] VITALS: BP 169/96; PULSE 92
[2020-12-19] MEDS: HYDRALAZINE 20 MG/ML VIAL 5 MG IV ×3 (09:51→20:13)
[2020-12-19 13:45] VITALS: BP 154/94; PULSE 77
[2020-12-19] MEDS: LABETALOL 100 MG TABLET PO (13:45)
[2020-12-19 19:00] VITALS: BP 163/103; PULSE 79
[2020-12-19] MEDS: IBUPROFEN 600 MG TABLET PO (19:08)
[2020-12-19] MEDS: ACETAMINOPHEN 325 MG TABLET 650 MG PO (19:09)
[2020-12-19 20:13] VITALS: BP 160/98
[2020-12-20] MEDS: IBUPROFEN 600 MG TABLET PO ×2 (02:47→09:39)
[2020-12-20] MEDS: ACETAMINOPHEN 325 MG TABLET 650 MG PO (02:47)
[2020-12-20 06:42] LABS: Hematocrit 32.6 % (36-46); Hemoglobin 10.8 g/dL (12.0-16.0)
[2020-12-20] MEDS: PRENATAL VIT,CALC/IRON/FOLIC 1 TABLET 1 TAB PO (09:39)
[2020-12-20 09:40] VITALS: BP 135/81
[2020-12-20] MEDS: LABETALOL 100 MG TABLET 200 MG PO (09:40)
[2020-12-20] MEDS: SERTRALINE 50 MG TABLET 150 MG PO (09:41)
[2020-12-20] MEDS: MEASLES,MUMPS,RUBELLA VACC/PF 0.5 ML VIAL SUBCUT (19:26)
[2020-12-20 19:32] VITALS: BP 153/99; PULSE 82; RESP 16; TEMP 36.6
--- NOTE | 2020-12-29 05:08 | P.DS_ITS ---
Discharge Providers Provider Date of admission: 12/18/20 19:06 Discharge Date: 12/20/20 Primary care physician: Gabi Jimenes DO Consults: 12/20/20 08:49 Consult to [employer] Routine Comment: Discharge provider: Micaela Russ MD Summary Hospital Course Date Patient Seen: 12/20/20 Time Patient Seen: 09:40 Diagnoses: Intrauterine at 36-,5/7 weeks gestation Cervical ripening with Cervidil Spontaneous vaginal delivery Preeclampsia Hospital Course: Patient is a 25-year-old 3 para 2 presented on December 18, 2020 for Cervidil cervical ripening. She was being induced due to preeclampsia. She progressed into active labor off of the Cervidil and had a spontaneous vaginal delivery without complication. Her blood pressures were labile and she was on labetalol 200 mg in the morning, 200 mg mid day, and 200 mg in the evening. She was discharged home on day # 1 to follow-up in 1 week for a blood pressure check. Peripartum Data Delivery Method: Natural Vaginal Laceration Description: None Episiotomy description: None Procedures: Cervidil cervical ripening Spontaneous vaginal delivery complications: other (Labile blood pressure) 1: Gender: Male Disposition of : home Status at Discharge Cognitive/behavioral status at discharge: oriented Functional status at discharge: independent ambulation Overall status at discharge: patient is progressing back to baseline Time Spent with Patient Time attestation: Total time spent providing and/or coordinating discharge services: Time spent: Less than 30 minutes Objective Labs Result Diagrams: 12/20/20 06:07 Exam Narrative Exam Narrative: Generally: Patient is sitting up in bed, holding , no acute distress Fundus: Firm at U -2 Extremities: Negative Hom[place], 1+ edema, 1+ DTRs Discharge Plan Discharge Plan Patient Disposition: Home Provider Discharge Comment: Call with fever, chills, or bleeding vaginally more than a pad in an hour, or headache, blurred vision, or spots before her eyes Ibuprofen 600 mg every 6 hours as needed for cramps Tylenol 650 mg every 6 hours as needed Labetalol 200 mg in the a.m., 100 mg at mid day, 200 mg in p.m. Discharge orders & Medications Prescriptions: Continued sertraline 100 mg tablet 150 mg PO DAILY Qty: 135 RF: 1 prenat.vits,monse,pny-cduc-apxqa Tablet 1 tab PO DAILY RF: 0 metformin 500 mg tablet 500 mg PO QAM RF: 0 Discontinued Humulin N NPH Insulin KwikPen 100 unit/mL (3 mL) insulin pen 10 unit SUBCUT .qhs Qty: 15 RF: 1 No Action (DME) blood-glucose meter Misc See Rx Instructions .MEDSUPPLY Qty: 1 RF: 0 (DME) lancets-blood glucose strips 30 gauge combo pack See Rx Instructions .MEDSUPPLY Qty: 100 RF: 2 (DME) insulin syringe-needle U-100 [BD Insulin Syringe Ultra-Fine] 1 mL 31 gauge x 5/16 syringe See Rx Instructions .Route Qty: 100 RF: 0 labetalol 100 mg tablet See Rx Instructions PO .COMPLEX Qty: 240 RF: 2 (DME) pen needle, diabetic [Lite Touch Insulin Pen [place]] 31 gauge x 3/16 needle See Rx Instructions .Route Qty: 50 RF: 1 Follow up/Referrals: Micaela Russ MD [Physician] - 6 Weeks Diet/Activity/Treatments Diet: Regular Activity: Nothing in the vagina for 6 weeks Skin/Wound/Dressing Care Report to your healthcare provider any signs of infection, such as:: chills, fever, increased pain and unusual drainage Visit Report/Discharge Packet Instructions: Pre-eclampsia, DI for Labor and Delivery, Vaginal Discharge Data Primary Care Provider: Gabi Jimenes
== END 2020-12-20 21:01 | disposition home or self-care (01) | DRG 807 ==
PROVIDERS: Admitting Provider Obstetrics & Gynecology; PCP Family Medicine; Referring Provider Obstetrics & Gynecology; Visit Provider Obstetrics & Gynecology
DX: O14.04 Mild to moderate pre-eclampsia, complicating childbirth (principal); Z37.0 Single live birth; Z3A.36 36 weeks gestation of pregnancy; O24.424 Gestational diabetes mellitus in childbirth, insulin controlled; Z20.822 Contact with and (suspected) exposure to COVID-19
CPT/HCPCS: 01967; 36415; 59050; 59200; 59400; 85014; 85018; 85025; 86850; 86900; 86901; 87635; C9803; G0379; J0360; J2590

== ENCOUNTER → 2021-02-02 08:55 | Outpatient (CLI) | payer OTHER, SELFPAY ==
[2021-02-02 10:31] LABS: Glucose Fasting 101 mg/dL (70-100)
[2021-02-02 12:12] LABS: Glucose 1 Hour 180 mg/dL (70-170)
[2021-02-02 13:14] LABS: Glucose Tol Interpretation INTERPRETATION
[2021-02-02 13:22] LABS: Glucose 2 Hour 76 mg/dL (70-140)
== END ==
PROVIDERS: PCP Family Medicine; Referring Provider Obstetrics & Gynecology; Visit Provider Obstetrics & Gynecology
DX: O24.414 Gestational diabetes mellitus in pregnancy, insulin controlled (principal)
CPT/HCPCS: 36415; 82951; 82952

== ENCOUNTER 2021-02-06 02:54 | Emergency (ER) | payer OTHER, SELFPAY ==
[2021-02-06 03:05] VITALS: BP 137/80; PULSE 98; RESP 20; TEMP 35.8; O2SAT 99; BMI 43.4
--- NOTE | 2021-02-06 03:19 | ED_ITS ---
HPI - Back Pain/Injury General Chief Complaint: Back Pain/Injury Stated Complaint: pain in lower rib cage Time Seen by Provider: 02/06/21 03:17 Source: family Limitations: no limitations History of Present Illness HPI Narrative: 25-year-old female diabetic with history of hypertension presents with her infant in the chief complaint of an episode of sudden onset upper back pain that wraps around under her ribs and last about 10 minutes prior to her arrival. She was resting after having just breast-fed her baby when the pain started. When present it was worse with movement and improves with rest. She denies any recent injury or trauma. She denies chest pain or trouble breathing. She denies nausea, vomiting or diarrhea. She denies any relationship with eating or drinking. She is essentially pain-free on her arrival Related Data Home Medications Medication Instructions Recorded Confirmed prenat.vits,monse,gwa-palj-npocm 1 tab PO DAILY 05/12/20 01/28/21 metformin 500 mg tablet 500 mg PO QAM 12/18/20 01/28/21 Previous Rx's Medication Instructions Recorded blood-glucose meter #1 ea 09/12/20 lancets 30 gauge and blood glucose #100 ea 09/12/20 strips combo pack pen needle, diabetic 31 gauge x #50 ea 10/27/20 3/16 (Lite Touch Insulin Pen [place]) insulin syringe-needle U-100 1 mL #100 ea 10/29/20 31 gauge x 5/16 (BD Insulin Syringe Ultra-Fine) labetalol 100 mg tablet See Rx Instructions PO .COMPLEX 12/25/20 #240 tab sertraline 100 mg tablet 200 mg PO DAILY #180 tab 01/01/21 Allergies Allergy/AdvReac Type Severity Reaction Status Date / Time No Known Drug Allergies Allergy Verified 01/28/21 11:00 Review of Systems Review of Systems Narrative: GENERAL: Denies chills, fatigue, malaise, fever, sweats. HEENT: Denies sinus pain, ear pain, sore throat, difficulty swallowing, dizziness. RESPIRATORY: Denies dyspnea, cough, wheezing, hemoptysis, sputum. CARDIOVASCULAR: Denies chest pain, palpitations, orthopnea, edema, GASTROINTESTINAL: Denies nausea, vomiting, abdominal pain, diarrhea, constipation, melena. : Denies dysuria, frequency, incontinence, hematuria, urinary retention. MUSCULOSKELETAL: See HPI SKIN: Denies rash, skin lesions, or other NEUROLOGIC: Denies weakness, headache, numbness, change in speech, confusion, seizures, incoordination. PSYCHIATRIC: No concerning psychosocial issues. 12 point review of systems is negative except for those stated above Patient History Medical History Anxiety Back injury (~2017) Chronic pain Fibromyalgia JOSE DE JESUS (generalized anxiety disorder) H/O gestational diabetes in prior , currently (~2018) Migraines Morbid obesity with BMI of 40.0-44.9, adult Spontaneous vaginal delivery (~12/13/17) SVT (supraventricular tachycardia) Surgical History No history of previous surgery Family History Mother No problems noted. 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 Well-developed patient, in mild distress. HEAD: Atraumatic. Normocephalic. EYES: Pupils equal round and reactive. Extraocular motions intact. No scleral icterus. No injection or drainage. ENT: Nose without bleeding, purulent drainage. Throat without erythema, tonsillar hypertrophy or exudate. Airway patent. NECK: Trachea midline. Non tender CARDIOVASCULAR: Regular rate and rhythm without murmurs, gallops, or rubs. RESPIRATORY: Clear to auscultation. Breath sounds equal bilaterally. No wheezes, rales, or rhonchi. GASTROINTESTINAL: Abdomen soft, non-tender, nondistended. EXTREMITIES: No edema or joint tenderness. BACK: Midthoracic paraspinal muscle tenderness on the right greater than left. No obvious swelling or induration, spasms are palpable. Skin evaluated and no sign of shingles NEURO: AOx3. SKIN: No rash or erythema of visible areas Initial Vital Signs Initial Vital Signs: Vital Signs Temperature 96.5 F L 02/06/21 03:05 Pulse Rate 98 H 02/06/21 03:05 Respiratory Rate 20 02/06/21 03:05 Blood Pressure 137/80 02/06/21 03:05 Pulse Oximetry 99 02/06/21 03:05 Course Orders Ordered: ED Orders 02/06/21 03:39 Complete Blood Count AUTO DIFF Stat Comprehensive Metabolic Panel Stat Lipase Stat Discontinued Medications Lidocaine (Lidocaine Patch 1 Each Adh..Patch) 1 each TOP NOW ONE Stop: 02/06/21 04:28 Vital Signs Vital signs: Vital Signs - 8 hr 02/06/21 03:05 Temperature 96.5 F L Pulse Rate 98 H Respiratory Rate 20 Blood Pressure 137/80 Pulse Oximetry 99 MDM - Back Pain/Injury Lab Data Result diagrams: 02/06/21 03:39 02/06/21 03:39 Labs: Lab Results 02/06/21 02/06/21 Range/Units 03:39 03:39 WBC 8.8 (4.5-11.0) X10^3/uL RBC 4.31 (4.0-5.2) X10^6/uL Hgb 11.8 L (12.0-16.0) g/dL Hct 36.3 (36-46) % MCV 84.0 (80-100) fL MCH 27.3 (26-34) PG MCHC 32.5 (30-36) % RDW 14.8 (11.6-14.8) % Plt Count 326 (150-400) X10^3/uL Neut % (Auto) 76.1 H (50-75) % Lymph % (Auto) 14.3 L (25-40) % [place] % (Auto) 4.6 (3-14) % Eos % (Auto) 2.2 (2-4) % Baso % (Auto) 2.8 H (0-2) % Neut # (Auto) 6700 (2196-2905) /uL Lymph # (Auto) 1300 (1263-1973) /uL [place] # (Auto) 400 (0-900) /uL Eos # (Auto) 200 (0-450) /uL Baso # (Auto) 200 H (0-100) /uL Sodium 140 (137-145) mmol/L Potassium 4.0 (3.4-5.1) mmol/L Chloride 103 (98-107) mmol/L Carbon Dioxide 30 (22-32) mmol/L BUN 16 (7-17) mg/dL Creatinine 1.04 (0.52-1.04) mg/dL Estimated GFR > 60.0 (>60) mL/min BUN/Creatinine Ratio 15.4 (6-22) Glucose 127 H (70-100) mg/dL Calcium 9.7 (8.4-10.2) mg/dL Total Bilirubin 0.2 (0.2-1.3) mg/dL AST 51 H (14-36) IU/L ALT 41 H (<35) IU/L Alkaline Phosphatase 83 (38-126) U/L Total Protein 7.4 (6.3-8.2) g/dL Albumin 4.4 (3.5-5.0) g/dL Globulin 3.0 (1.7-4.1) g/dL Albumin/Globulin Ratio 1.5 (1.0-2.8) Lipase 77 (23-300) U/L [facility] Narrative Medical decision making narrative: Patient with intense, sudden onset upper back pain that wrapped her ribs. Symptoms are essentially gone by her arrival. Multiple diagnoses considered including gallbladder disease, pancreatitis, muscle spasm, shingles versus other. Labs are very reassuring and we discussed the low likely yield of imaging given her history, physical exam and reassuring labs. This seems most likely inflammatory your spasm in nature. Return precautions discussed and questions answered to her apparent satisfaction Discharge Plan Departure Patient Disposition: Home Clinical Impression: Acute thoracic back pain Qualifiers: Back pain laterality: right Qualified Code(s): M54.6 - Pain in thoracic spine Instructions: DI for Back Spasm Activity Restrictions/Additional Instructions: *You have been diagnosed with [ thoracic back pain and anterior rib pain. Your exam and lab work is very reassuring] *What to do: *Please continue to take your regular medications as directed. [ ] New medication prescriptions sent to your pharmacy: [ ] [ ] New medication written as a paper prescription [ x] No new medications given *Please follow up with your primary care provider in 2-3 days, call for an appointment. Let them know you were seen in the Emergency Department and that we ask that you be seen in follow up. We will electronically transmit a record of today's note if your PCP is in our system *If you do not have a primary care provider please contact the [facility] Resource line at [phone]. They will ask some questions about your medical history and help get you set up with a doctor in the community. *Return to Emergency Department if you should have any new, worsening or concerning symptoms, such as [fever greater than 101 F, shaking chills, worsening pain, persistent vomiting or other bothersome symptoms] Prescriptions: No Action (DME) blood-glucose meter Misc See Rx Instructions .MEDSUPPLY Qty: 1 RF: 0 (DME) lancets-blood glucose strips 30 gauge combo pack See Rx Instructions .MEDSUPPLY Qty: 100 RF: 2 (DME) insulin syringe-needle U-100 [BD Insulin Syringe Ultra-Fine] 1 mL 31 gauge x 5/16 syringe See Rx Instructions .Route Qty: 100 RF: 0 sertraline 100 mg tablet 200 mg PO DAILY Qty: 180 RF: 1 prenat.vits,monse,upa-srfy-edwno Tablet 1 tab PO DAILY RF: 0 labetalol 100 mg tablet See Rx Instructions PO .COMPLEX Qty: 240 RF: 2 (DME) pen needle, diabetic [Lite Touch Insulin Pen [place]] 31 gauge x 3/16 needle See Rx Instructions .Route Qty: 50 RF: 1 metformin 500 mg tablet 500 mg PO QAM RF: 0 Referrals: Gabi Jimenes DO [Primary Care Provider] -
[2021-02-06 03:54] LABS: Add Manual Diff / Slide Review NO; Basophils Absolute Auto 200 /uL (0-100); Basophils Percent Auto 2.8 % (0-2); Eosinophils Absolute Auto 200 /uL (0-450); Eosinophils Percent Auto 2.2 % (2-4); Hematocrit 36.3 % (36-46); Hemoglobin 11.8 g/dL (12.0-16.0); Lymphocytes Absolute Auto 1300 /uL (1100-4500); Lymphocytes Percent Auto 14.3 % (25-40); Mean Corpuscular HGB Conc 32.5 % (30-36); Mean Corpuscular Hemoglobin 27.3 PG (26-34); Monocytes Absolute Auto 400 /uL (0-900); Monocytes Percent Auto 4.6 % (3-14); Neutrophils Absolute Auto 6700 /uL (1500-7000); Neutrophils Percent Auto 76.1 % (50-75); Platelet Count 326 X10^3/uL (150-400); Red Blood Cell Count 4.31 X10^6/uL (4.0-5.2); Red Cell Distribution Width 14.8 % (11.6-14.8); White Blood Cell Count 8.8 X10^3/uL (4.5-11.0)
[2021-02-06 04:00] LABS: Alanine Aminotransferase 41 IU/L (<35); Albumin 4.4 g/dL (3.5-5.0); Albumin Globulin Ratio 1.5 (1.0-2.8); Alkaline Phosphatase 83 U/L (38-126); Aspartate Aminotransferase 51 IU/L (14-36); BUN Creatinine Ratio 15.4 (6-22); Bilirubin Total 0.2 mg/dL (0.2-1.3); Blood Urea Nitrogen 16 mg/dL (7-17); Calcium 9.7 mg/dL (8.4-10.2); Carbon Dioxide 30 mmol/L (22-32); Chloride 103 mmol/L (98-107); Estimated Glomerular Filt Rate > 60.0 mL/min (>60); Glucose 127 mg/dL (70-100); HEMOLYSIS < 15 (0-50); Lipase 77 U/L (23-300); Sodium 140 mmol/L (137-145); Total Protein 7.4 g/dL (6.3-8.2)
[2021-02-06] MEDS: LIDOCAINE PATCH 1 EACH ADH..PATCH TOP (04:35)
[2021-02-06 04:41] VITALS: BP 134/78; PULSE 89; RESP 20; O2SAT 99
== END 2021-02-06 04:42 | disposition home or self-care (01) ==
PROVIDERS: Emergency Provider Emergency Medicine; PCP Family Medicine
DX: M54.6 Pain in thoracic spine (principal)
CPT/HCPCS: 36415; 80053; 83690; 85025; 99282; 99283

== ENCOUNTER → 2021-02-21 10:40 | Outpatient (CLI) | payer OTHER, SELFPAY ==
[2021-02-21 11:17] LABS: Alanine Aminotransferase 31 IU/L (<35); Albumin 4.4 g/dL (3.5-5.0); Albumin Globulin Ratio 1.6 (1.0-2.8); Alkaline Phosphatase 87 U/L (38-126); Aspartate Aminotransferase 31 IU/L (14-36); BUN Creatinine Ratio 15.6 (6-22); Bilirubin Total 0.2 mg/dL (0.2-1.3); Blood Urea Nitrogen 15 mg/dL (7-17); Calcium 9.7 mg/dL (8.4-10.2); Carbon Dioxide 24 mmol/L (22-32); Chloride 104 mmol/L (98-107); Estimated Glomerular Filt Rate > 60.0 mL/min (>60); Globulin 2.8 g/dL (1.7-4.1); Glucose 147 mg/dL (70-100); HEMOLYSIS < 15 (0-50); Potassium 4.2 mmol/L (3.4-5.1); Sodium 139 mmol/L (137-145); Total Protein 7.2 g/dL (6.3-8.2)
[2021-02-21 11:22] LABS: Hemoglobin A1C% w Est Avg Glu 5.5 % (4.0-6.0)
== END ==
PROVIDERS: PCP Family Medicine; Referring Provider Family Medicine; Visit Provider Family Medicine
DX: R74.01 Elevation of levels of liver transaminase levels (principal); O24.419 Gestational diabetes mellitus in pregnancy, unspecified control
CPT/HCPCS: 36415; 80053; 83036

== ENCOUNTER 2021-06-18 05:00 | Emergency (ER) | payer OTHER, SELFPAY ==
--- NOTE | 2021-06-18 05:11 | ED.BACK ---
HPI - Back Pain/Injury General Chief Complaint: Back Pain/Injury Stated Complaint: back pain Time Seen by Provider: 06/18/21 05:11 Source: patient, RN notes reviewed and old records reviewed Mode of arrival: Ambulatory Limitations: no limitations History of Present Illness HPI Narrative: This is a 26-year-old female with history of PCOS who is 6 months with complaint of recurrent thoracic back pain. Patient was seen in the past for similar symptoms. She states she is kind of mid thoracic discomfort that wraps around on both sides she thinks that and lying on her side and switching may be exacerbating it. She notes that lying flat seems to make it feel little bit worse. Moving does seem to aggravate it as well. Patient denies any numbness or tingling, no weakness. No loss of bowel or bladder control. She has tried ibuprofen and Tylenol with minimal improvement. She states her was giving her back massage as well as aggressive karate chopped to her back which was actually quite helpful. She has had chronic low back pain in the past but not persistently. She has not had any fevers or chills. No chest pain or shortness of breath. No pleuritic chest pain. No nausea or vomiting except for on the way here when her pain was stronger. She denies any diarrhea constipation. No dysuria urgency or frequency. She has not resumed her menses since delivery. No vaginal bleeding or discharge. No rash or skin changes. Related Data Home Medications Medication Instructions Recorded Confirmed prenat.vits,monse,[id number]-[id number] 1 tab PO DAILY 05/12/20 01/28/21 Previous Rx's Medication Instructions Recorded blood-glucose meter #1 ea 09/12/20 sertraline 100 mg tablet 200 mg PO DAILY #180 tab 01/01/21 lorazepam 0.5 mg tablet 0.5 mg PO DAILY PRN #5 tab 04/02/21 metformin 500 mg tablet 500 mg PO QAM #90 tab 04/30/21 cyclobenzaprine 10 mg tablet 10 mg PO TID PRN #10 tab 06/18/21 Allergies Allergy/AdvReac Type Severity Reaction Status Date / Time No Known Drug Allergies Allergy Verified 01/28/21 11:00 Review of Systems Review of Systems ROS Unobtainable: All systems reviewed & are unremarkable except as noted in HPI and below Patient History Medical History Anxiety Back injury (~2017) Chronic pain Fibromyalgia JOSE DE JESUS (generalized anxiety disorder) H/O gestational diabetes in prior , currently (~2018) Migraines Morbid obesity with BMI of 40.0-44.9, adult Spontaneous vaginal delivery (~12/13/17) SVT (supraventricular tachycardia) Surgical History No history of previous surgery Family History Mother No problems noted. 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; Home[employer]er Cert.) occupational status: unemployed current occupational exposures/hazards: No kevin/evangelical: Worship special kevin needs: No (non-mormonism ) Smoking Status: Never smoker second hand exposure: No alcohol intake: former (pre- : rare use) substance use type: does not use Smoking Status: Never smoker alcohol intake frequency: holidays/special occasions only Substance Use Type: does not use Exam Narrative Exam Narrative: GENERAL: Alert and oriented x three, obese female in mild distress. HEENT: Head normocephalic, atraumatic, EOMI, pupils reactive, face symmetric, moist mucous membranes NECK: Supple, full range of motion CARDIOVASCULAR: Regular rate and rhythm without murmurs, rubs or gallops. RESPIRATORY: Breath sounds equal bilaterally, no wheezes rales or rhonchi. ABDOMEN: Soft, nontender. Normoactive bowel sounds all 4 quadrants. No guarding or rebound, rigidity, no mass : No CVA tenderness BACK: No cervical, midline or lumbar vertebral point tenderness. Patient does have some tenderness of the paraspinal muscles at the TG he 9 level. She has tissue tightness bilaterally. Patient has normal range of motion. Patient's gait is normal. Muscle strength is 5/5 in upper and lower extremities. 2+ radial pulse bilaterally. Patient has normal sensation upper and lower extremities. EXTREMITIES: Normal range of motion, no clubbing or edema. Neurovascularly intact NEUROLOGICAL: Cranial nerves II through XII grossly intact. Moving all extremities SKIN: Warm, dry, no petechiae, no rashes or lesions. Initial Vital Signs Initial Vital Signs: Vital Signs Temperature 98.0 F 06/18/21 05:25 Pulse Rate 98 H 06/18/21 05:25 Respiratory Rate 20 06/18/21 05:25 Blood Pressure 125/75 06/18/21 05:25 Pulse Oximetry 97 06/18/21 05:25 Course Orders Ordered: Discontinued Medications Cyclobenzaprine HCl (Cyclobenzaprine 10 Mg Prepack) 1 bottle MISC SEEINSTR ONE Stop: 06/18/21 05:32 Last Admin: 06/18/21 05:37 Dose: 1 bottle Documented by: JARRETT Ketorolac Tromethamine (Ketorolac 30 Mg/Ml Vial) 30 mg IM NOW ONE Stop: 06/18/21 05:30 Last Admin: 06/18/21 05:37 Dose: 30 mg Documented by: JARRETT Vital Signs Vital signs: Vital Signs - 8 hr 06/18/21 05:25 Temperature 98.0 F Pulse Rate 98 H Respiratory Rate 20 Blood Pressure 125/75 Pulse Oximetry 97 MDM - Back Pain/Injury MDM Narrative Medical decision making narrative: This is a 26-year-old female with acute on chronic thoracic back discomfort which she feels is worsened from her breast feeding. Laying flat makes it worse. Massage improves it. She has not had any other symptoms suggesting a cardiac, embolic or pulmonary cause. She has tried some Tylenol and ibuprofen without improvement but none tonight. She feels like the muscles are very tight spasm me. Discussed she is currently she can use muscle relaxer but needs to have someone present so she sleepy or falls asleep they can remove the infant. Patient expresses her understanding. We discussed doing a dose of Toradol here in the department would patient comfortable with. She is comfortable deferring any additional workup at this time. All questions answered. Discharge Plan Departure Patient Disposition: Home Clinical Impression: Back pain, thoracic Instructions: Thoracic Back Pain Activity Restrictions/Additional Instructions: Follow-up with your physician. You may take Tylenol up to a 1000 mg and/or ibuprofen up to 800 mg every 8 hours as needed. Moist heat, hot showers or warm packs may be helpful. If in adequate you can take a muscle relaxer 1 tablet every 8 hours as needed. This medication can make you sleepy so if or caring for your child make sure there is additional individual present who can monitor the situation and removed the child while breast-feeding if you fall asleep or are altered. Prescription sent to [facility] in [place]. Please return for rapidly worsening symptoms, fevers, new numbness, tingling or weakness, loss of bowel or bladder control, new chest pain or shortness of breath, persistent vomiting or other new or concerning symptoms. Prescriptions: New cyclobenzaprine 10 mg tablet 10 mg PO TID PRN (Reason: muscle spasm) Qty: 10 0RF No Action (DME) blood-glucose meter Misc See Rx Instructions .MEDSUPPLY Qty: 1 0RF Rx Instructions: Use to check blood sugar 4 times daily as directed and record on log sheet. sertraline 100 mg tablet 200 mg PO DAILY Qty: 180 1RF lorazepam 0.5 mg tablet 0.5 mg PO DAILY PRN (Reason: anxiety) Qty: 5 0RF metformin 500 mg tablet 500 mg PO QAM Qty: 90 1RF prenat.vits,monse,[id number] Tablet 1 tab PO DAILY 0RF Referrals: Gabi Jimenes DO [Primary Care Provider] -
[2021-06-18 05:25] VITALS: BP 125/75; PULSE 98; RESP 20; TEMP 36.7; O2SAT 97; BMI 39.9
[2021-06-18] MEDS: KETOROLAC 30 MG/ML VIAL IM (05:37)
[2021-06-18] MEDS: CYCLOBENZAPRINE 10 MG PREPACK 1 BOTTLE MISC (05:37)
== END 2021-06-18 06:05 | disposition home or self-care (01) ==
PROVIDERS: Emergency Provider Emergency Medicine; PCP Family Medicine
DX: M54.6 Pain in thoracic spine (principal)
CPT/HCPCS: 96372; 99283; J1885

== ENCOUNTER 2021-09-30 10:12 | Emergency (ER) | payer OTHER, SELFPAY ==
[2021-09-30] VITALS (7 sets, daily range): BP systolic 107–125; BP diastolic 55–67; PULSE 59–91; RESP 18; TEMP 36.3; O2SAT 94–99; BMI 45.1
[2021-09-30] MEDS: KETOROLAC 30 MG/ML VIAL IV (11:39)
[2021-09-30 11:47] LABS: Add Manual Diff / Slide Review NO; Basophils Absolute Auto 0 /uL (0-100); Basophils Percent Auto 0.3 % (0-2); Eosinophils Absolute Auto 100 /uL (0-450); Eosinophils Percent Auto 1.1 % (2-4); Hematocrit 39.3 % (36-46); Hemoglobin 13.5 g/dL (12.0-16.0); Lymphocytes Absolute Auto 1000 /uL (1100-4500); Lymphocytes Percent Auto 10.4 % (25-40); Mean Corpuscular HGB Conc 34.2 % (30-36); Mean Corpuscular Hemoglobin 27.6 PG (26-34); Mean Corpuscular Volume 80.6 fL (80-100); Monocytes Absolute Auto 500 /uL (0-900); Monocytes Percent Auto 5.5 % (3-14); Neutrophils Absolute Auto 7700 /uL (1500-7000); Neutrophils Percent Auto 82.7 % (50-75); Platelet Count 285 X10^3/uL (150-400); Red Blood Cell Count 4.88 X10^6/uL (4.0-5.2); Red Cell Distribution Width 14.5 % (11.6-14.8); White Blood Cell Count 9.4 X10^3/uL (4.5-11.0)
[2021-09-30 11:54] LABS: Alanine Aminotransferase 84 IU/L (<35); Albumin 4.7 g/dL (3.5-5.0); Albumin Globulin Ratio 1.6 (1.0-2.8); Alkaline Phosphatase 114 U/L (38-126); Aspartate Aminotransferase 160 IU/L (14-36); Bilirubin Total 0.7 mg/dL (0.2-1.3); Blood Urea Nitrogen 14 mg/dL (7-17); Calcium 9.2 mg/dL (8.4-10.2); Carbon Dioxide 27 mmol/L (22-32); Chloride 105 mmol/L (98-107); Estimated Glomerular Filt Rate > 60 mL/min (>60); Glucose 157 mg/dL (70-100); HEMOLYSIS < 15 (0-50); Lipase 56 U/L (23-300); Potassium 4.3 mmol/L (3.4-5.1); Sodium 139 mmol/L (137-145); Total Protein 7.7 g/dL (6.3-8.2)
--- NOTE | 2021-09-30 12:53 | DI.US.S_ITS ---
PROCEDURE: US ABDOMEN LIMITED INDICATIONS: RIGHT UPPER QUADRANT PAIN. ELEVATED LIVER ENZYMES TECHNIQUE: Real-time focused scanning was performed of the abdomen, with image documentation. COMPARISON: None. FINDINGS: Increased hepatic parenchymal echogenicity. No hepatic mass. Mild hepatomegaly measuring 20 cm in maximum transverse dimension. Numerous mobile gallstones in the gallbladder. No gallbladder wall thickening or pericholecystic fluid. The gallbladder appears normally distended. No intrahepatic or extrahepatic biliary ductal dilatation. Pancreas is normal. IMPRESSION: Cholelithiasis and hepatic steatosis. No findings of cholecystitis. Dictated by: Siddhartha Araujo M.D. on 09/30/2021 at 13:57 Approved by: Siddhartha Araujo M.D. on 09/30/2021 at 13:57
--- NOTE | 2021-09-30 17:24 | ED_ITS ---
HPI - Back Pain/Injury <ALIRIO Hankins - Last Filed: 09/30/21 19:25> General Chief Complaint: Back Pain/Injury Stated Complaint: Back spasms/pain- feels faint- poss med reaction Time Seen by Provider: 09/30/21 11:23 Source: patient History of Present Illness HPI Narrative: This is a 26-year-old female presents to the emergency department complaining of mid abdominal/thoracic pain which wraps around her back and abdomen, states that she has had episodes this type of pain which is severe in nature approximately 5 times but but occasionally over the last six months. Patient states that the pain was so severe she did have an episode of nausea vomiting, she denies any recent fever, denies epigastric did or reflex. Patient states that she is , she is nine months , has two children at home. Her BMI is 45.2, denies any abdominal surgery history, is given emergency department before for thoracic back pain and muscle relaxers which she states helped but do not get rid of this pain. Patient also endorses having PCOS, and she is on metformin for this. Patient also has a history of fibromyalgia, generalized anxiety disorder, depression and migraines. Patient denies any dysuria, flank pain, low back pain which is new, or any chills, lightheadedness, chest pain, or difficulty breathing. She is not taking any medication prior to arrival for this pain. Related Data Home Medications Medication Instructions Recorded Confirmed prenat.vits,monse,[id number] 1 tab PO DAILY 05/12/20 09/17/21 Previous Rx's Medication Instructions Recorded metformin 500 mg tablet 500 mg PO QAM #90 tab 04/30/21 cyclobenzaprine 10 mg tablet 10 mg PO TID PRN #10 tab 06/18/21 bupropion HCl 150 mg 24 hr tablet, 450 mg PO QAM #270 tab 08/18/21 extended release lidocaine 5 % topical patch 1 patch TOPICAL DAILY PRN #15 ea 09/30/21 (Lidoderm) methocarbamol 500 mg tablet 500 mg PO TID PRN #20 tab 09/30/21 Allergies Allergy/AdvReac Type Severity Reaction Status Date / Time No Known Drug Allergies Allergy Verified 09/17/21 11:47 Review of Systems <ALIRIO Hankins - Last Filed: 09/30/21 19:25> Review of Systems Narrative: General: denies fever, chills Head/Neck: denies headache, neck pain Eyes: denies visual changes, eye pain Cardio: denies chest pain, palpitations Respiratory: denies shortness of breath, cough GI: Endorses upper abdominal pain, denies nausea, vomiting, or diarrhea : denies dysuria, hematuria or flank pain MSK: denies new joint pain, muscle weakness or swelling Skin: denies rash, itching or wound Neuro: denies numbness, tingling, dizziness Patient History <ALIRIO Hankins - Last Filed: 09/30/21 19:25> Medical History Anxiety Back injury (~2017) Chronic pain Fibromyalgia JOSE DE JESUS (generalized anxiety disorder) H/O gestational diabetes in prior , currently (~2017) Migraines Morbid obesity with BMI of 40.0-44.9, adult Spontaneous vaginal delivery (~12/13/17) SVT (supraventricular tachycardia) Surgical History No history of previous surgery Family History Mother No problems noted. 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 General: Awake, alert, nontoxic, no cardiorespiratory distress Head/Neck: Atraumatic, neck supple Eyes: EOMI, conjunctiva normal Nose: nares patent, no rhinorrhea Mouth/Throat: moist mucus membranes, posterior pharynx without erythema or lesion Cardio: Regular rate and rhythm, no peripheral edema Respiratory: respirations unlabored without wheezing, stridor, or rales. No retractions, hypoxia or tachypnea GI: Abdomen soft, nontender to palpation x4 quadrants, no guarding or rebound tenderness MSK: Moves all extremities, neurovascularly intact, range of motion without deficit Skin: Normal capillary refill, no rash Neuro: Normal speech and cognition, normal gait Initial Vital Signs Initial Vital Signs: Vital Signs Temperature 97.4 F L 09/30/21 10:23 Pulse Rate 59 L 09/30/21 10:23 Respiratory Rate 18 09/30/21 10:23 Blood Pressure 114/62 09/30/21 10:23 Pulse Oximetry 98 09/30/21 10:23 Course <ALIRIO Hankins - Last Filed: 09/30/21 19:25> Orders Ordered: Discontinued Medications Ketorolac Tromethamine (Ketorolac 30 Mg/Ml Vial) 30 mg IV NOW ONE Stop: 09/30/21 11:24 Last Admin: 09/30/21 11:39 Dose: 30 mg Documented by: NYDIA Vital Signs Vital signs: Vital Signs - 8 hr 09/30/21 14:22 09/30/21 14:23 Pulse Rate 91 H Blood Pressure 125/67 Pulse Oximetry 97 96 MDM - Back Pain/Injury <ALIRIO Hankins - Last Filed: 09/30/21 19:25> Lab Data Result diagrams: 09/30/21 11:30 09/30/21 11:30 Labs: Lab Results 09/30/21 09/30/21 Range/Units 11:30 11:30 WBC 9.4 (4.5-11.0) X10^3/uL RBC 4.88 (4.0-5.2) X10^6/uL Hgb 13.5 (12.0-16.0) g/dL Hct 39.3 (36-46) % MCV 80.6 (80-100) fL MCH 27.6 (26-34) PG MCHC 34.2 (30-36) % RDW 14.5 (11.6-14.8) % Plt Count 285 (150-400) X10^3/uL Neut % (Auto) 82.7 H (50-75) % Lymph % (Auto) 10.4 L (25-40) % [place] % (Auto) 5.5 (3-14) % Eos % (Auto) 1.1 L (2-4) % Baso % (Auto) 0.3 (0-2) % Neut # (Auto) 7700 H (9316-7454) /uL Lymph # (Auto) 1000 L (4436-0731) /uL [place]ry # (Auto) 500 (0-900) /uL Eos # (Auto) 100 (0-450) /uL Baso # (Auto) 0 (0-100) /uL Sodium 139 (137-145) mmol/L Potassium 4.3 (3.4-5.1) mmol/L Chloride 105 (98-107) mmol/L Carbon Dioxide 27 (22-32) mmol/L BUN 14 (7-17) mg/dL Creatinine 1.00 (0.52-1.04) mg/dL Estimated GFR > 60 (>60) mL/min BUN/Creatinine Ratio 14.0 (6-22) Glucose 157 H (70-100) mg/dL Calcium 9.2 (8.4-10.2) mg/dL Total Bilirubin 0.7 (0.2-1.3) mg/dL AST 160 H (14-36) IU/L ALT 84 H (<35) IU/L Alkaline Phosphatase 114 (38-126) U/L Total Protein 7.7 (6.3-8.2) g/dL Albumin 4.7 (3.5-5.0) g/dL Globulin 3.0 (1.7-4.1) g/dL Albumin/Globulin Ratio 1.6 (1.0-2.8) Lipase 56 (23-300) U/L Point of Care Testing Test Results Negative Urine Dip Bedside Urine Glucose Negative Bedside Urine Bilirubin - Negative Bedside Urine Ketone - Negative Urine Specific [place] 1.030 Bedside Urine Occult Blood - Negative Bedside Urine pH 6.0 Bedside Urine Protein - Negative Bedside Urine Urobilinogen 0.2 Bedside Urine Nitrite - Negative Bedside Urine Leukocytes - Negative Esterase MDM Narrative Medical decision making narrative: This is a 26-year-old female presents to the emergency department with complaint of back pain that wraps around her upper abdomen. She has a BMI of 45.2, states that she has had back spasms in the past and muscle relaxers have helped this but this seems different lab work was significant for a left shift without leukocytosis elevated AST and ALT above her baseline of 31, AST was 160 today, ALT was 84. No elevation to the T bili, lipase. Upper quadrant ultrasound was obtained which shows cholelithiasis and hepatic steatosis without findings of c holecystitis. Her bile duct was not visualized and her pancreas was normal on ultrasound. Discussed these findings with patient, sounds like this is likely what started during her last based on her symptoms. Patient denies any relation of pain to food and has not had any vomiting other than one time after she had sharp pain. Discussed starting a low-fat diet, trying clear liquids for the next two days, following up with General surgery regarding her gallstones which may have been ongoing since her . She has hepatic steatosis with mild hepatomegaly measuring 20 cm in maximum transverse dimension. There was no gallbladder wall thickening or pericholecystic fluid. She was given a prescription of lidocaine patches for back pain with methocarbamol for back spasms. Encourage here to decrease the fat in her diet, try to reduce sugar intake for her PCOS which makes it hard for her to lose weight. Encouraged her to increase her activity with light walking and to retu rn to the emergency department for any new or worsening symptoms. She has not had any blood in her urine or her stool, denies any flank pain, denies any diarrhea or constipation. Peritoneal signs on abdominal exam. Patient remains p.o. tolerant. Serial abdominal exam without increase in abdominal pain. Given history and exam, low suspicion for acute abdominal process, such as acute cholecystitis, pancreatitis, perforated viscus, atypical appendicitis, colitis, diverticulitis or torsion. Extensive conversation about ER return precautions and need for close follow-up. Patient is appropriate and amenable to discharge home. Vital signs are stable on repeat examination is unremarkable. Patient has been informed of results. Patient has been given strict return to ER precautions for any new or worsening symptoms. Patient understands to follow up closely with outpatient providers as instructed. Patient understands plan and agrees to discharge home. All questions and concerns answered at this time. Discharge Plan Departure Patient Disposition: Home Clinical Impression: Gallstones, Hepatic steatosis Instructions: Gallstones, Nonalcoholic Fatty Liver Disease, DI for Back Spasm Activity Restrictions/Additional Instructions: *You have been diagnosed with gallstones and hepatic steatosis. This means that fat has infiltrated liver but your liver is still functioning well. This happens commonly with gaining weight and can be improved with reducing weight. Because you are PCOS, please pay attention to your sugar intake as this may be making it more difficult for you to lose weight. But prioritize reducing your fat intake due to your gallstones. Please see the handout, it has some diet recommendations but I would avoid all animal fats and oils for the next few days to help your inflammation go down. There is no infection of gallbladder wall so this is not technically an emergency today but the pain is severe when it does come on like you know. I am sorry that you had this happen, please continue taking muscle relaxers as needed for your muscle spasms, follow-up with Dr. Jimenes if you are continuing to have pain, and please follow-up with Dr. Rangel or anyone from [facility] regarding your gallstones since you have had these pains come and go for quite some time now. He may try a clear liquid diet for the next couple of days to see if this helps with your pain or incorporate foods that do not a fat content and you will be able to tolerate those better. Please take Tylenol or ibuprofen every 6 hours needed for your pain, remember to take ibuprofen with food and water to prevent ulcer. *What to do: *Please continue to take your regular medications as directed. [x ] New medication prescriptions sent to your pharmacy: [[facility]] [ ] New medication written as a paper prescription [ ] No new medications given *Please follow up with your primary care provider in 2-3 days, call for an appointment. Let them know you were seen in the Emergency Department and that we asked that you be seen for follow-up. We will electronically transmit a record of today's note if your PCP is in our system *If you do not have a primary care provider please contact [phone] to establish care with one of the [facility] primary care providers. *Return to Emergency Department if you should have any new, worsening or concerning symptoms, such as [fever greater than 101F, chills, worsening pain, persistent vomiting or other bothersome symptoms] Prescriptions: New methocarbamol 500 mg tablet 500 mg PO TID PRN (Reason: muscle spasm) Qty: 20 0RF lidocaine [Lidoderm] 5 % adhesive patch,medicated 1 patch topical DAILY PRN (Reason: back pain) Qty: 15 0RF Rx Instructions: leave on most painful area for up to 12 hrs No Action metformin 500 mg tablet 500 mg PO QAM Qty: 90 1RF bupropion HCl 150 mg tablet extended release 24 hr 450 mg PO QAM Qty: 270 1RF prenat.vits,monse,cjn-[id number] Tablet 1 tab PO DAILY 0RF cyclobenzaprine 10 mg tablet 10 mg PO TID PRN (Reason: muscle spasm) Qty: 10 0RF Referrals: Lei Rangel MD [Physician] - 3-5 days Gabi Jimenes DO [Primary Care Provider] -
== END 2021-09-30 14:30 | disposition home or self-care (01) ==
PROVIDERS: Emergency Medicine; Emergency Provider Nurse Practitioner Critical Care Medicine; PCP Family Medicine
DX: K76.0 Fatty (change of) liver, not elsewhere classified (principal); K80.20 Calculus of gallbladder without cholecystitis without obstruction; M54.6 Pain in thoracic spine; R11.2 Nausea with vomiting, unspecified
CPT/HCPCS: 36415; 76705; 80053; 81003; 81025; 83690; 85025; 96374; 99284; J1885

== ENCOUNTER → 2021-10-27 10:02 | Outpatient (CLI) | payer OTHER, SELFPAY ==
[2021-10-27 11:49] LABS: COVID19 -Nasal RAPID Negative (Negative)
== END ==
PROVIDERS: PCP Family Medicine; Visit Provider Surgery
DX: Z20.822 Contact with and (suspected) exposure to COVID-19 (principal); Z01.812 Encounter for preprocedural laboratory examination
CPT/HCPCS: 87635; C9803

== ENCOUNTER 2021-10-28 13:38 | Day surgery (SDC) | payer OTHER, SELFPAY ==
[2021-10-21 11:59] VITALS: BMI 46.0
[2021-10-28] VITALS (10 sets, daily range): BP systolic 114–123; BP diastolic 69–90; PULSE 78–93; RESP 11–20; TEMP 36.3–36.6; O2SAT 94–99; BMI 44.5
--- NOTE | 2021-10-28 | PATH_ITS ---
[facility] Accession Number: [id number] . 01 Material submitted: . gallbladder - GALLBLADDER . 01 Clinical history: . SDC CALCULUS OF BILE DUCT WITHOUT CHOLANGITIS . 01 Diagnosis: Gallbladder, Cholecystectomy: Chronic cholecystitis and cholelithiasis. MRV 10/30/2021 1331 Local . 01 Electronically signed: . Xiao Cuellar MD, Pathologist NPI- [id number] . 01 Gross description: . Received in formalin, labeled with the patient's name and gallbladder, and consists of an intact gallbladder measuring 8.1 x 3.2 x 3.0 cm. The serosa is pompa-green, smooth, and glistening. The hepatic surface is rough and has a full-thickness defect measuring 0.9 cm in greatest dimension. The cystic duct is received closed with a clamp and is inked blue. No pericystic lymph node is identified. Opening the specimen reveals the lumen to be filled with green, viscous bile and multiple yellow, bosselated calculi obstructing the cystic duct, measuring 0.4 cm in greatest dimension. The mucosa is green and velvety with numerous pinpoint yellow areas consistent with cholesterol deposits. No polyps or lesions are identified. The mehta average 0.2 cm thick. Last Dipper sections to include the cystic duct margin and full-thickness sections are submitted in cassette A1. ([id number]) /R 10/30/20218 Local . 01 Pathologist provided ICD-10: K80.50, K80.10 . 01 CPT . 484365 Specimen Comment: A courtesy copy of this report has been sent to [phone] Performed at: 01 [facility] [address] [place] [address], [place], [place] [id number] MD Mihai Quintana MD Phone: [phone]
[2021-10-28] MEDS: LACTATED RINGERS 1,000 ML 100 ML IV ×2 (14:23→19:08)
--- NOTE | 2021-10-28 14:40 | SUR.PREOP ---
Addendum entered by Kori Bates R.N. 10/28/21 16:40: 1530-resting. no changes. 1630-Sleeping. Original Note: 10/28/21-1400-Pt aware of delay in surgical time. Pt texted to update. 1440-preop admission completed. awaiting to see surgical team. Call light at side. siderails up . playing on cellphone.
--- NOTE | 2021-10-28 17:27 | PM.PREOP ---
Pre-operative Note Interval Note History & Physical reviewed/Exam performed by Physician: Yes Changes to H&P: No
[2021-10-28] MEDS: CEFAZOLIN 3 GM IN 0.9 % NACL 3 GM/100 ML PLAST..BAG IV (18:10)
--- NOTE | 2021-10-28 18:56 | SUR.OPER ---
Supine on padded OR bed, head on pillow, leftarm secured on padded arm board at <90 degrees abduction, right arm tucked with sled and gel pad with rolled up towel supporting hand and wrist, legs uncrossed, safety belt at thigh, tape over blanket over lower legs, footboard in place.
[2021-10-28] MEDS: BUPIVACAINE 0.25% (PF) VIAL 30 ML INJ (19:06)
--- NOTE | 2021-10-28 19:23 | PM.OP.1 ---
Operative Date/Time/Diagnoses Date of procedure: 10/28/21 Time of procedure: 19:23 Pre-op diagnosis: biliary colic Post-op diagnosis: same Procedure & Clinicians Procedure: Laparoscopic cholecystectomy Same procedure as scheduled: Yes Indications: Symptoms and radiographic findings consistent with biliary colic Surgeon: Isael Zheng Anesthesia Type: General Operative Notes Findings: Critical view of safety established. Distended gallbladder with stones Specimen(s): other (Gallbladder) Estimated Blood Loss (mL): 10 Procedure in detail: The patient was placed supine on the table and bilateral lower extremity compression devices were applied. Anesthesia was induced they were intubated with an endotracheal tube and received 2g of Ancef. A time-out was performed. They were prepped and draped in sterile fashion. An infraumbilical incision was made, the umbilical stalk was elevated and the fascia was sharply incised entering the abdomen atraumatically. A blunt tip 12mm balloon trocar was then inserted, pneumoperitoneum was established and inspection of the abdomen demonstrated no evidence of injury. They were placed head up and right side up and then a 11 mm port was placed high in the epigastrium and two 5mm in the right upper quadrant. The gallbladder was grasped by the fundus and retracted over the liver and retracted laterally by the infundibulum. Using electrocautery the lateral plane between the gallbladder and the liver was opened towards the fundus. The gallbladder was then retracted laterally and the medial plane was developed in the same manner. With the gallbladder mobilized the bottom of the cystic plate was visualized. The hepatocystic triangle was meticulosly skeletonized from both the front and the back. Only two structures were then clearly seen entering the gallbladder the cystic duct and the cystic artery. With the critical view of safety fully established the cystic duct was clipped twice proximally and once distally using the 10 Weck hemo mm clip applied under direct visualization and then sharply divided. The cystic artery was divided in the same fashion. The gallbladder was removed from the liver bed using electro cautery. The liver bed was then inspected for hemostasis and this was achieved. The abdomen was irrigated with sterile saline and inspection was made that showed the clips in good position. The specimen was removed using Endo-Catch. The abdomen was desufflated. The umbilical fascia was closed with 0 Vicryl in a [id number] fashion under direct visualization. Skin incisions were irrigated and closed with 4-0 Monocryl. 30 ml of 0.25% bupivacaine was infiltrated into the subcutaneous tissue of the incisions. The wounds were sealed with Dermabond. Patient emerged from anesthesia was extubated and transferred to recovery in stable condition. The sponge and instrument count at the end of the operation was correct. Complications: none Post-operative Condition: stable Disposition: same day surgery
[2021-10-28] MEDS: OXYCODONE/ACETAMINOPHEN 5/325 TABLET 1 TAB PO ×2 (20:04→20:24)
[2021-10-28] MEDS: ONDANSETRON 4 MG/2 ML INJ IV (20:04)
--- NOTE | 2021-10-28 21:27 | SUR.PHASEII ---
Home with in stable condition. Unable to picker prescription medications from the pharmacy due to the late hour and the fact that the patient's surgery was delayed by 3-4 hours. All discharge instructions reviewed with patient and .
== END 2021-10-28 21:20 | disposition home or self-care (01) ==
PROVIDERS: PCP Family Medicine; Referring Provider Surgery; Visit Provider Surgery
PROC: 0FT44ZZ Resection of Gallbladder, Percutaneous Endoscopic Approach (ICD-10-PCS; CPT 47562; principal; 2021-10-28 15:15)
DX: K80.10 Calculus of gallbladder with chronic cholecystitis without obstruction (principal); E66.01 Morbid (severe) obesity due to excess calories; Z68.41 Body mass index [BMI] 40.0-44.9, adult
CPT/HCPCS: 47562; 81025; 82962; J0690; J1100; J1885; J2250; J2405; J2704; J3010

== ENCOUNTER → 2022-01-26 09:28 | Outpatient (CLI) | payer OTHER, SELFPAY ==
[2022-01-26 11:10] LABS: Glucose 99 mg/dL (70-100)
[2022-01-28 05:38] LABS: Insulin Level Total 19.2 uIU/mL (2.6-24.9)
[2022-02-05 08:24] LABS: Percent Free Testosterone 3.58 % (0.50-2.80); Testosterone Total 47.5 ng/dL (10.0-55.0)
== END ==
PROVIDERS: PCP Family Medicine; Referring Provider Obstetrics & Gynecology; Visit Provider Obstetrics & Gynecology
DX: E28.2 Polycystic ovarian syndrome (principal); R63.5 Abnormal weight gain
CPT/HCPCS: 36415; 82947; 83525; 84402; 84403

== ENCOUNTER → 2022-01-28 14:47 | Outpatient (CLI) | payer OTHER, SELFPAY ==
[2022-01-30 11:46] LABS: Candida species Positive (Negative); Gardnerella vaginalis Negative (Negative); Trichomoas vaginalis Negative (Negative)
== END ==
PROVIDERS: PCP Family Medicine; Visit Provider Obstetrics & Gynecology
DX: N89.8 Other specified noninflammatory disorders of vagina (principal)
CPT/HCPCS: 87480; 87510; 87660

== ENCOUNTER → 2022-07-02 12:16 | Outpatient (CLI) | payer OTHER, SELFPAY ==
--- NOTE | 2022-07-02 12:17 | DI.US.S_ITS ---
PROCEDURE: US PELVIC COMPLETE INDICATIONS: MENORRHAGIA TECHNIQUE: Real-time scanning was performed of the pelvic organs, with image documentation. Additional endovaginal scanning was necessary due to incomplete visualization of the adnexal and endometrial structures by transabdominal scanning. COMPARISON: [facility], US, US PELVIC COMPLETE, 06/11/2020, 13:48. FINDINGS: Uterus: Uterus is anteverted and normal in size at 7.4 x 3.9 x 5.5 right cm. The myometrium is homogeneous. The endometrium measures 9 mm combined thickness. Ovaries: The right ovary measures 2.8 x 1.8 x 2.7 cm, with a calculated ovarian volume of 7.4 cc. The left ovary measures 2.9 x 2.1 x 2.5 cm, with a calculated ovarian volume of 7.8 cc. The ovaries have a normal sonographic appearance. There are greater than 12 ovarian follicles bilaterally. No adnexal masses are seen. Other: No pathologic free abdominal or pelvic fluid. IMPRESSION: 1. Findings meet the [place] definition of polycystic ovaries. In the absence of ovulatory dysfunction or clinically/biochemically diagnosed hyperandrogenism, findings are non specific and do not indicate the presence of polycystic ovarian syndrome. 2. Otherwise unremarkable pelvic ultrasound. We strive to produce accurate, complete, and clear reports of imaging services. To assist us in improving patient care, this report was composed using standard report templates and voice recognition software. Therefore, it may contain abnormal punctuation, insertions and/or omissions. Occasional wrong-word or sound-alike substitutions may occur. Though we review the report and make efforts to correct it, we do recommend that the report be read carefully in proper context to recognize any text inaccuracies. Dictated by: Asha Mercedes M.D. on 07/02/2022 at 15:13 Approved by: Asha Mercedes M.D. on 07/02/2022 at 15:15
[2022-07-02 14:12] LABS: Add Manual Diff / Slide Review NO; Basophils Absolute Auto 0 /uL (0-100); Basophils Percent Auto 0.2 % (0-2); Eosinophils Absolute Auto 100 /uL (0-450); Eosinophils Percent Auto 2.6 % (2-4); Hematocrit 43.4 % (36-46); Hemoglobin 14.9 g/dL (12.0-16.0); Lymphocytes Absolute Auto 1500 /uL (1100-4500); Lymphocytes Percent Auto 28.2 % (25-40); Mean Corpuscular HGB Conc 34.2 % (30-36); Mean Corpuscular Hemoglobin 28.6 PG (26-34); Mean Corpuscular Volume 83.5 fL (80-100); Monocytes Absolute Auto 500 /uL (0-900); Monocytes Percent Auto 8.9 % (3-14); Neutrophils Absolute Auto 3300 /uL (1500-7000); Neutrophils Percent Auto 60.1 % (50-75); Platelet Count 319 X10^3/uL (150-400); Red Cell Distribution Width 13.5 % (11.6-14.8); White Blood Cell Count 5.5 X10^3/uL (4.5-11.0)
== END ==
PROVIDERS: PCP Family Medicine; Referring Provider Obstetrics & Gynecology; Visit Provider Obstetrics & Gynecology
DX: N92.0 Excessive and frequent menstruation with regular cycle (principal); E28.2 Polycystic ovarian syndrome
CPT/HCPCS: 36415; 76830; 76856; 85025

== ENCOUNTER → 2022-11-25 09:26 | Outpatient (CLI) | payer OTHER, SELFPAY ==
[2022-11-25 11:16] LABS: Alanine Aminotransferase 20 IU/L (<35); Albumin 4.5 g/dL (3.5-5.0); Albumin Globulin Ratio 1.6 (1.0-2.8); Alkaline Phosphatase 85 U/L (38-126); Aspartate Aminotransferase 20 IU/L (14-36); Bilirubin Total 0.5 mg/dL (0.2-1.3); Blood Urea Nitrogen 11 mg/dL (7-17); Calcium 9.3 mg/dL (8.4-10.2); Carbon Dioxide 24 mmol/L (22-32); Chloride 103 mmol/L (98-107); Estimated Glomerular Filt Rate > 60 mL/min (>60); Globulin 2.9 g/dL (1.7-4.1); Glucose 103 mg/dL (70-100); HEMOLYSIS < 15 (0-50); Potassium 4.2 mmol/L (3.4-5.1); Sodium 137 mmol/L (137-145); Total Protein 7.4 g/dL (6.3-8.2)
[2022-11-25 11:45] LABS: TSH w/ Reflex to FT4 2.17 uIU/mL (0.47-4.68)
== END ==
PROVIDERS: PCP Physician Assistant; Referring Provider Physician Assistant; Visit Provider Physician Assistant
DX: E66.01 Morbid (severe) obesity due to excess calories (principal); R74.8 Abnormal levels of other serum enzymes; Z68.41 Body mass index [BMI] 40.0-44.9, adult
CPT/HCPCS: 36415; 80053; 84443

== ENCOUNTER → 2023-06-16 14:47 | Outpatient (CLI) | payer OTHER, SELFPAY ==
[2023-06-16 18:36] LABS: Appearance Urine UA CLEAR; Bilirubin Urine UA NEGATIVE (NEGATIVE); Color Urine UA YELLOW; Glucose Urine UA NEGATIVE (Negative); Ketones Urine UA NEGATIVE (NEGATIVE); Leukocyte Esterase Urine UA NEGATIVE (NEGATIVE); Nitrite Urine UA NEGATIVE (Negative); Occult Blood Urine UA TRACE-INTACT (Negative); Protein Urine UA NEGATIVE (Negative); Urobilinogen Urine UA 0.2 E.U./dL (0.2)
[2023-06-16 18:41] LABS: pH Urine UA 6.5 (4.5-8.0)
[2023-06-16 18:48] LABS: Bacteria Urine Occasional (0-1); Culture Indicated Urine Cult Not Indicated; RBC Urine 0-1/HPF (0-5/HPF); Squamous Epithelial Cell Urine 0-1 /HPF (0-5/HPF); Urine Volume 10mL (spun); WBC Urine 0-1/HPF (0-5/HPF)
== END ==
PROVIDERS: PCP Physician Assistant; Referring Provider Obstetrics & Gynecology; Visit Provider Obstetrics & Gynecology
DX: R30.0 Dysuria (principal)
CPT/HCPCS: 81001

== ENCOUNTER → 2023-06-28 09:18 | Outpatient (CLI) | payer OTHER, SELFPAY ==
[2023-06-28 10:11] LABS: Hemoglobin A1C% w Est Avg Glu 5.4 % (4.0-6.0)
[2023-06-28 10:32] LABS: Glucose 103 mg/dL (70-100)
== END ==
PROVIDERS: Referring Provider Obstetrics & Gynecology; Visit Provider Obstetrics & Gynecology
DX: E88.819 Insulin resistance, unspecified (principal)
CPT/HCPCS: 36415; 82947; 83036

== ENCOUNTER → 2023-11-21 12:43 | Outpatient (CLI) | payer OTHER, SELFPAY ==
[2023-11-21 14:10] LABS: HCG Quantitative /Beta subunit 387.65 mIU/mL
== END ==
PROVIDERS: PCP Family Medicine; Referring Provider Obstetrics & Gynecology; Visit Provider Obstetrics & Gynecology
DX: N91.2 Amenorrhea, unspecified (principal)
CPT/HCPCS: 36415; 84702

== ENCOUNTER → 2023-11-23 10:50 | Outpatient (CLI) | payer OTHER, SELFPAY | PROVIDERS: PCP Family Medicine; Referring Provider Specialist; Visit Provider Specialist | DX: N91.2 Amenorrhea, unspecified (principal) | CPT/HCPCS: 36415; 84702 ==

== ENCOUNTER → 2023-12-21 12:17 | Outpatient (CLI) | payer OTHER, SELFPAY ==
[2023-12-21 13:26] LABS: Add Manual Diff / Slide Review NO; Basophils Absolute Auto 0 /uL (0-100); Basophils Percent Auto 0.4 % (0-2); Eosinophils Absolute Auto 100 /uL (0-450); Eosinophils Percent Auto 1.6 % (2-4); Hematocrit 38.5 % (36-46); Hemoglobin 13.3 g/dL (12.0-16.0); Lymphocytes Absolute Auto 1900 /uL (1100-4500); Lymphocytes Percent Auto 21.7 % (25-40); Mean Corpuscular HGB Conc 34.6 % (30-36); Mean Corpuscular Hemoglobin 29.4 PG (26-34); Mean Corpuscular Volume 84.8 fL (80-100); Monocytes Absolute Auto 400 /uL (0-900); Monocytes Percent Auto 4.8 % (3-14); Neutrophils Absolute Auto 6400 /uL (1500-7000); Neutrophils Percent Auto 71.5 % (50-75); Platelet Count 306 X10^3/uL (150-400); Red Blood Cell Count 4.54 X10^6/uL (4.0-5.2); White Blood Cell Count 8.9 X10^3/uL (4.5-11.0)
[2023-12-21 19:32] LABS: Alanine Aminotransferase 22 IU/L (<35); Aspartate Aminotransferase 26 IU/L (14-36); BUN Creatinine Ratio 6.3 (6-22); Blood Urea Nitrogen 5 mg/dL (7-17); Estimated Glomerular Filt Rate > 60 mL/min (>60); Uric Acid 6.6 mg/dL (2.5-6.2)
[2023-12-21 21:39] LABS: Hemoglobin A1C% w Est Avg Glu 5.1 % (4.0-6.0)
[2023-12-22 08:11] LABS: RPR Screen Non Reactive (Non Reactive)
[2023-12-22 11:36] LABS: Varicella IgG Antibody 788 index (Immune >165)
[2023-12-22 12:38] LABS: Hepatitis B Surface Antigen NEGATIVE s/c (NEGATIVE); Rubella Antibody IgG 28.2 IU/mL (>15)
[2023-12-22 12:55] LABS: HIV 1 & 2 Ab/Ag 4th Gen Combo NEGATIVE (NEGATIVE); Hep C Virus Ab w/Reflex Quant NEGATIVE s/c (NEGATIVE)
== END ==
PROVIDERS: PCP Family Medicine; Referring Provider Obstetrics & Gynecology; Visit Provider Obstetrics & Gynecology
DX: O09.299 Supervision of pregnancy with other poor reproductive or obstetric history, unspecified trimester (principal); E88.819 Insulin resistance, unspecified
CPT/HCPCS: 36415; 80055; 82565; 83036; 84450; 84460; 84520; 84550; 86787; 86803; 86850; 86900; 86901; 87389

== ENCOUNTER → 2024-01-12 10:09 | Outpatient (CLI) | payer OTHER, SELFPAY ==
[2024-01-12 12:28] LABS: Appearance Urine UA CLEAR; Bilirubin Urine UA NEGATIVE (NEGATIVE); Color Urine UA YELLOW; Glucose Urine UA NEGATIVE (Negative); Ketones Urine UA NEGATIVE (NEGATIVE); Leukocyte Esterase Urine UA 1+ (NEGATIVE); Nitrite Urine UA NEGATIVE (Negative); Occult Blood Urine UA NEGATIVE (Negative); Protein Urine UA NEGATIVE (Negative); Specific Gravity Urine UA <=1.005 (1.000-1.035); Urobilinogen Urine UA 0.2 E.U./dL (0.2)
[2024-01-12 12:49] LABS: Bacteria Urine Many (>30); Culture Indicated Urine Cult Not Indicated; RBC Urine None Seen (0-5/HPF); Squamous Epithelial Cell Urine 1-5 /HPF (0-5/HPF); Urine Volume 10mL (spun); WBC Urine 0-1/HPF (0-5/HPF)
== END ==
LOC: LAB 10:10
PROVIDERS: PCP Family Medicine; Referring Provider Obstetrics & Gynecology; Visit Provider Obstetrics & Gynecology
DX: O09.299 Supervision of pregnancy with other poor reproductive or obstetric history, unspecified trimester (principal); R35.0 Frequency of micturition
CPT/HCPCS: 81001; 87077; 87086; 87186

== ENCOUNTER → 2024-02-16 13:48 | Outpatient (CLI) | payer OTHER, SELFPAY | LOC: LAB 13:49 | PROVIDERS: PCP Family Medicine; Referring Provider Specialist; Visit Provider Specialist | DX: Z34.90 Encounter for supervision of normal pregnancy, unspecified, unspecified trimester (principal); Z3A.16 16 weeks gestation of pregnancy | CPT/HCPCS: 36415; 82105; 82677; 84702; 86336 ==

== ENCOUNTER → 2024-02-23 09:25 | Outpatient (CLI) | payer OTHER, SELFPAY ==
[2024-02-23 10:49] LABS: Natera Collection Specimen Collected
== END ==
PROVIDERS: PCP Family Medicine; Referring Provider Student in an Organized Health Care Education/Training Program; Visit Provider Student in an Organized Health Care Education/Training Program
DX: Z36.0 Encounter for antenatal screening for chromosomal anomalies (principal); Z13.79 Encounter for other screening for genetic and chromosomal anomalies; Z34.82 Encounter for supervision of other normal pregnancy, second trimester
CPT/HCPCS: 36415

== ENCOUNTER → 2024-03-15 12:01 | Outpatient (CLI) | payer OTHER, SELFPAY ==
--- NOTE | 2024-03-15 12:01 | DI.US.S_ITS ---
PROCEDURE: US OB >= 14 WEEKS FETUS INDICATIONS: 20 Week Anatomy Scan OUTSIDE/PRIOR DATING DATA: Last menstrual period (LMP): 10/25/2023. LMP-based estimated date of delivery (ADOLFO): 07/31/2024. First dating scan (date and location): 12/21/2023. Estimated date of delivery (ADOLFO) from first dating scan: 07/29/2024. The calculations are made using the clinical ADOLFO of 07/31/2024. TECHNIQUE: Real-time scanning was performed of the fetus, with image documentation and biometric measurements. COMPARISON: [facility], , OB <= 14 WEEKS FETUS, 01/19/2024, 10:12. [facility], , OB <= 14 WEEKS FETUS, 12/21/2023, 12:09. [facility], , OB >= 14 WEEKS FETUS, 02/16/2024, 13:41. FINDINGS: General: A single living intrauterine gestation is present. Presentation: Vertex. Placenta: Placental position is fundal , without previa. Amniotic fluid index: 19.9 cm, normal range is 5-24 cm. Single deepest vertical pocket is 0.8 cm. heart rate: 130 beats per minute. Maternal cervical canal: 4.4 cm long. Normal lower limit is 2.5 cm. biometrics: Biparietal diameter: 4.8 cm 20 weeks 4 days Head circumference: 18.5 cm 20 weeks 6 days Abdominal circumference: 16.0 cm 21 weeks 1 day Femur length: 3.5 cm 21 weeks 1 day Clinically estimated gestational age: 20 weeks 2 days Composite gestational age from present scan: 21 weeks 0 days Estimated weight and percentile: 397 g 86th percentile Anatomic survey: Neuro: Ventricles are non-dilated at less than 10 mm. Cisterna magna is normal at 3-11 mm. Cerebellum is normal in size and morphology. Nuchal skin fold: Normal at less than 6 mm between 14-21 weeks gestational age. Face: Nose and lips, facial profile are normal. Spine: No evidence for spina bifida. Heart: 4-chambered heart is present, with normal ventricular outflow tracts. Diaphragm: Diaphragm is intact. Stomach: Left-sided stomach is present. Kidneys: No hydronephrosis. Normal is less than 5 mm in 2nd trimester, less than 7 mm in 3rd trimester. Cord: 3-vessel cord has orthotopic insertion. Bladder: Normal in size. Extremities: All 4 extremities identified. IMPRESSION: Single live intrauterine with gestational age today of 21 weeks 0 days. Anatomy is within normal limits. We strive to produce accurate, complete, and clear reports of imaging services. To assist us in improving patient care, this report was composed using standard report templates and voice recognition software. Therefore, it may contain abnormal punctuation, insertions and/or omissions. Occasional wrong-word or sound-alike substitutions may occur. Though we review the report and make efforts to correct it, we do recommend that the report be read carefully in proper context to recognize any text inaccuracies. Dictated by: Aure Velasquez M.D. on 03/15/2024 at 20:00 Approved by: Aure Velasquez M.D. on 03/15/2024 at 20:03
== END ==
PROVIDERS: PCP Family Medicine; Referring Provider Specialist; Visit Provider Specialist
DX: Z34.82 Encounter for supervision of other normal pregnancy, second trimester (principal); Z3A.21 21 weeks gestation of pregnancy
CPT/HCPCS: 76811

== ENCOUNTER 2024-03-21 19:31 | Emergency (ER) | payer OTHER, SELFPAY ==
[2024-03-21] VITALS (8 sets, daily range): BP systolic 116–141; BP diastolic 59–86; PULSE 74–89; RESP 16–18; TEMP 36.8; O2SAT 96–100; BMI 42.4
--- NOTE | 2024-03-21 19:55 | DI.US.S_ITS ---
PROCEDURE: US OB LIMITED INDICATIONS: NEAR SYNCOPE OUTSIDE/PRIOR DATING DATA: Last menstrual period (LMP): 10/25/23. LMP-based estimated date of delivery (ADOLFO): 07/31/24. First dating scan (date and location): 12/21/23. Estimated date of delivery (ADOLFO) from first dating scan: 07/29/24. The calculations are made using the working ADOLFO of 07/31/24. TECHNIQUE: Real-time scanning was performed of the fetus, with image documentation. Endovaginal scanning: No COMPARISON: [facility], , US OB >= 14 WEEKS FETUS, 03/15/2024, 12:21. FINDINGS: General: A single living intrauterine gestation is present. Presentation: Breech. Placenta: Placental position is fundal , without abruption or previa. Amniotic fluid index: 18.4 cm, normal range is 5-24 cm. Single deepest vertical pocket is 5.0 cm. heart rate: 141 beats per minute. Maternal cervical canal: Closed and 3.9 cm long. Normal lower limit is 2.5 cm. Clinically estimated gestational age: 21 weeks one day IMPRESSION: Single living intrauterine . Closed cervix and normal amniotic fluid volume. Fundal placenta without abruption. We strive to produce accurate, complete, and clear reports of imaging services. To assist us in improving patient care, this report was composed using standard report templates and voice recognition software. Therefore, it may contain abnormal punctuation, insertions and/or omissions. Occasional wrong-word or sound-alike substitutions may occur. Though we review the report and make efforts to correct it, we do recommend that the report be read carefully in proper context to recognize any text inaccuracies. Dictated by: Nidia Styles M.D. on 03/21/2024 at 21:13 Approved by: Nidia Styles M.D. on 03/21/2024 at 21:16
[2024-03-21 20:10] LABS: Add Manual Diff / Slide Review NO; Basophils Absolute Auto 0 /uL (0-100); Basophils Percent Auto 0.2 % (0-2); Eosinophils Absolute Auto 100 /uL (0-450); Eosinophils Percent Auto 0.7 % (2-4); Hematocrit 37.5 % (36-46); Hemoglobin 12.7 g/dL (12.0-16.0); Lymphocytes Absolute Auto 1500 /uL (1100-4500); Lymphocytes Percent Auto 12.5 % (25-40); Mean Corpuscular HGB Conc 33.9 % (30-36); Mean Corpuscular Hemoglobin 29.7 PG (26-34); Mean Corpuscular Volume 87.7 fL (80-100); Monocytes Absolute Auto 500 /uL (0-900); Monocytes Percent Auto 3.9 % (3-14); Neutrophils Absolute Auto 10000 /uL (1500-7000); Neutrophils Percent Auto 82.7 % (50-75); Platelet Count 268 X10^3/uL (150-400); Red Blood Cell Count 4.27 X10^6/uL (4.0-5.2); Red Cell Distribution Width 14.2 % (11.6-14.8); White Blood Cell Count 12.1 X10^3/uL (4.5-11.0)
[2024-03-21 20:27] LABS: Alanine Aminotransferase 16 IU/L (<35); Albumin 4.1 g/dL (3.5-5.0); Albumin Globulin Ratio 1.3 (1.0-2.8); Alkaline Phosphatase 66 U/L (38-126); Aspartate Aminotransferase 29 IU/L (14-36); BUN Creatinine Ratio 10.3 (6-22); Bilirubin Total 0.3 mg/dL (0.2-1.3); Blood Urea Nitrogen 7 mg/dL (7-17); Calcium 9.5 mg/dL (8.4-10.2); Carbon Dioxide 25 mmol/L (22-32); Chloride 103 mmol/L (98-107); Estimated Glomerular Filt Rate > 60 mL/min (>60); Globulin 3.1 g/dL (1.7-4.1); Glucose 139 mg/dL (70-100); HEMOLYSIS < 15 (0-50); Lactate Dehydrogenase 122 U/L (120-246); Potassium 3.6 mmol/L (3.4-5.1); Sodium 135 mmol/L (137-145); Total Protein 7.2 g/dL (6.3-8.2); Uric Acid 5.8 mg/dL (2.5-6.2)
--- NOTE | 2024-03-21 20:27 | PC.NURSE ---
Pt to US via wheel chair with tech
[2024-03-21] MEDS: SODIUM CHLORIDE 0.9% 1,000 ML 1000 ML IV (20:28)
[2024-03-21 20:38] LABS: Creatinine Urine Random 63.02 mg/dL; Protein (Total) Urine Random 14 mg/dL (0-12); Protein Creatinine Ratio Urine 0.22 GRAM/24H
--- NOTE | 2024-03-21 22:30 | ED.SYNCOPE ---
HPI - Syncope General Chief Complaint: Syncope Stated Complaint: syncope 21 wks Time Seen by Provider: 03/21/24 19:55 Source: patient Mode of arrival: Ambulatory Limitations: no limitations History of Present Illness HPI narrative: Patient is a 20-year-old female currently 21 weeks presenting today with a syncopal episodes. She reports that was at [facility] at the self check out with her 6-year-old when she got a little dizzy lightheaded and ended up on the floor. She then drove herself she has home glucose monitor she was previously had gestational diabetes her glucose was 135 [address] then [address] herself to the ER. She has no significant abdominal pain vaginal bleeding back pain fever chills or other symptoms. She also reports that her previous pregnancies she was induced secondary to preeclampsia. Her initial blood pressure in the emergency department 141 over 86 however it has next 1 was 121/70 and has remained in the 120s oral less. Related Data Home Medications Medication Instructions Recorded Confirmed vitamin-ferrous sulfate tab PO 12/08/23 03/15/24 27 mg iron-folic acid 0.8 mg tablet Previous Rx's Medication Instructions Recorded metformin 1,000 mg tablet 1,000 mg PO BID PCOS #180 tabs 08/17/23 ondansetron 4 mg disintegrating 4 mg PO Q6H PRN nausea and 12/12/23 tablet vomiting #20 tabs blood sugar diagnostic (Blood #100 ea 03/15/24 Glucose Test strips) blood-glucose meter (Blood Glucose #1 ea 03/15/24 Monitoring kit) lancets #100 ea 03/15/24 cephalexin 500 mg capsule 500 mg PO BID 7 days #14 caps 03/21/24 Allergies Allergy/AdvReac Type Severity Reaction Status Date / Time No Known Drug Allergies Allergy Verified 03/21/24 19:53 Patient History Medical History (Updated 03/21/24 @ 23:05 by Gayatri Gant DO) depression Gestational hypertension Gestational diabetes requiring insulin H/O gestational diabetes in prior , currently (~2017) Back injury (~2017) Anxiety Spontaneous vaginal delivery (~12/13/17) Chronic pain SVT (supraventricular tachycardia) Surgical History (Updated 12/08/23 @ 15:45 by Sara Overton RN) History of cholecystectomy (10/28/21) Family History (Updated 08/08/24 @ 15:48 by Sara Overton RN) Mother No problems noted. Father Gout Grandmother Arthritis Degenerative joint disease Grandfather Pacemaker Syncopal episodes Cardiac arrhythmia Heart attack Grandmother Dementia Grandfather Gout Brother Gout Alcohol abuse Uncle Cardiac abnormality CPAP (continuous positive airway pressure) dependence Social History marital status: number of children: 2 household members: spouse and children lives independently: Yes caregiver/support person: Yes housing: house pets and animals: Yes (2 cats) education level: college (some college) occupational status: unemployed current occupational exposures/hazards: No kevin/religious: [employer] special kevin needs: No travel history: recent (domestic only) seatbelt use: always helmet use: Yes water heater temp set < 120 deg: Yes working smoke detector in home: Yes fire extinguisher in home: Yes carbon monox detector in home: Yes firearms in home: Yes firearms unloaded and locked: Yes do you feel safe at home: Yes Smoking Status: Never smoker second hand exposure: No alcohol intake: former (very rarely when not ) substance use type: does not use during the past year weight has: remained stable well-balanced diet: about half the time daily servings fruits/ve-4 caffeine: Yes (AM cup tea some days) Type(s) of exercise: walking Smoking Status: Never smoker alcohol intake frequency: 0-2 drinks per day Substance Use Type: does not use Exam Initial Vital Signs Initial Vital Signs: Vital Signs Temperature 98.3 F 03/21/24 19:48 Pulse Rate 89 03/21/24 19:48 Respiratory Rate 18 03/21/24 19:48 Blood Pressure 141/86 H 03/21/24 19:48 Pulse Oximetry 98 03/21/24 19:48 Oxygen Delivery Method Room Air 03/21/24 19:48 GENERAL: Alert pleasant well-appearing 20-year-old female and in no acute distress. HEENT: Head atraumatic,EOMI, pupils reactive, face symmetric, moist mucous membranes CARDIOVASCULAR: Regular rate and rhythm without murmurs, rubs or gallops. RESPIRATORY: Breath sounds equal bilaterally, no wheezes rales or rhonchi. ABDOMEN: Soft, gravid nontender no guarding no rebound EXTREMITIES: Normal range of motion, no clubbing or edema. Neurovascularly intact NEUROLOGICAL: Alert and oriented x4.Normal gait and speech. SKIN: Warm, dry, no laceration, no petechiae, no rashes or lesions. Course Orders Ordered: ED Orders 03/21/24 22:00 UA Complete [Urinalysis and Microscopic] Stat Discontinued Medications Cephalexin HCl (Cephalexin 250 Mg Capsule) 500 mg PO NOW ONE Stop: 03/21/24 22:51 Last Admin: 03/21/24 23:07 Dose: 500 mg Documented By: HERB Sodium Chloride (Normal Saline 0.9%) 1,000 mls @ 1,000 mls/hr IV BOLUS ONE Stop: 03/21/24 20:54 Last Infusion: 03/21/24 22:10 Dose: Infused Documented By: Admin: 03/21/24 20:28 Dose: 1,000 mls/hr Documented By: HERB Vital Signs Vital signs: Vital Signs - 8 hr 03/21/24 22:00 03/21/24 22:00 03/21/24 22:30 Pulse Rate 76 Respiratory Rate 18 Blood Pressure 124/71 123/59 L Pulse Oximetry 100 Oxygen Delivery Method 03/21/24 22:30 03/21/24 23:00 03/21/24 23:00 Pulse Rate 82 74 Respiratory Rate 16 16 Blood Pressure 122/74 Pulse Oximetry 97 98 Oxygen Delivery Method Room Air Room Air MDM - Syncope Lab Data 03/21/24 20:00 03/21/24 20:00 Labs: Lab Results 03/21/24 03/21/24 03/21/24 Range/Units 19:43 20:00 22:00 WBC 12.1 H (4.5-11.0) X10^3/uL RBC 4.27 (4.0-5.2) X10^6/uL Hgb 12.7 (12.0-16.0) g/dL Hct 37.5 (36-46) % MCV 87.7 (80-100) fL MCH 29.7 (26-34) PG MCHC 33.9 (30-36) % RDW 14.2 (11.6-14.8) % Plt Count 268 (150-400) X10^3/uL Neut % (Auto) 82.7 H (50-75) % Lymph % (Auto) 12.5 L (25-40) % [place] % (Auto) 3.9 (3-14) % Eos % (Auto) 0.7 L (2-4) % Baso % (Auto) 0.2 (0-2) % Neut # (Auto) 75039 H (7815-9896) /uL Lymph # (Auto) 1500 (4238-6064) /uL [place] # (Auto) 500 (0-900) /uL Eos # (Auto) 100 (0-450) /uL Baso # (Auto) 0 (0-100) /uL Sodium 135 L (137-145) mmol/L Potassium 3.6 (3.4-5.1) mmol/L Chloride 103 (98-107) mmol/L Carbon Dioxide 25 (22-32) mmol/L BUN 7 (7-17) mg/dL Creatinine 0.68 (0.52-1.04) mg/dL Estimated GFR > 60 (>60) mL/min BUN/Creatinine Ratio 10.3 (6-22) Glucose 139 H (70-100) mg/dL Uric Acid 5.8 (2.5-6.2) mg/dL Calcium 9.5 (8.4-10.2) mg/dL Total Bilirubin 0.3 (0.2-1.3) mg/dL AST 29 (14-36) IU/L ALT 16 (<35) IU/L Alkaline Phosphatase 66 (38-126) U/L Lactate Dehydrogenase 122 (120-246) U/L Total Protein 7.2 (6.3-8.2) g/dL Albumin 4.1 (3.5-5.0) g/dL Globulin 3.1 (1.7-4.1) g/dL Albumin/Globulin Ratio 1.3 (1.0-2.8) Urine Color Yellow Urine Appearance Clear Urine pH 6.5 (4.5-8.0) Ur Specific [place] <=1.005 (1.000-1.035) Urine Protein Negative (Negative) Urine Glucose (UA) Negative (Negative) g/dL Urine Ketones Negative (NEGATIVE) Urine Occult Blood Negative (Negative) Urine Nitrate Negative (Negative) Urine Bilirubin Negative (NEGATIVE) Urine Urobilinogen 0.2 (0.2) E.U./dL Ur Leukocyte Esterase Negative (NEGATIVE) Urine RBC None seen (0-5/HPF) Urine WBC None seen (0-5/HPF) Ur Squamous Epith Cells 0-1 /hpf (0-5/HPF) Urine Bacteria None seen (None) Ur Culture Indicated? Cult not indicated Vol Urine Centrifuged 10ml (spun) U Random Total Protein 14 H (0-12) mg/dL Urine Creatinine 63.02 mg/dL Protein/Creatinin Ratio 0.22 GRAM/24H Urine Dip Bedside Urine Glucose Negative Bedside Urine Bilirubin - Negative Bedside Urine Ketone - Negative Urine Specific [place] 1.005 Bedside Urine Occult Blood - Negative Bedside Urine pH 6 Bedside Urine Protein - Negative Bedside Urine Urobilinogen - Negative Bedside Urine Nitrite + Positive Bedside Urine Leukocytes - Negative Esterase Imaging Data US - OB: Radiologist's Impression: PROCEDURE: US OB LIMITED INDICATIONS: NEAR SYNCOPE OUTSIDE/PRIOR DATING DATA: Last menstrual period (LMP): 10/25/23. LMP-based estimated date of delivery (ADOLFO): 07/31/24. First dating scan (date and location): 12/21/23. Estimated date of delivery (ADOLFO) from first dating scan: 07/29/24. The calculations are made using the working ADOLFO of 07/31/24. TECHNIQUE: Real-time scanning was performed of the fetus, with image documentation. Endovaginal scanning: No COMPARISON: [facility], , US OB >= 14 WEEKS FETUS, 03/15/2024, 12:21. FINDINGS: General: A single living intrauterine gestation is present. Presentation: Breech. Placenta: Placental position is fundal , without abruption or previa. Amniotic fluid index: 18.4 cm, normal range is 5-24 cm. Single deepest vertical pocket is 5.0 cm. heart rate: 141 beats per minute. Maternal cervical canal: Closed and 3.9 cm long. Normal lower limit is 2.5 cm. Clinically estimated gestational age: 21 weeks one day IMPRESSION: Single living intrauterine . Closed cervix and normal amniotic fluid volume. Fundal placenta without abruption. We strive to produce accurate, complete, and clear reports of imaging services. To assist us in improving patient care, this report was composed using standard report templates and voice recognition software. Therefore, it may contain abnormal punctuation, insertions and/or omissions. Occasional wrong-word or sound-alike substitutions may occur. Though we review the report and make efforts to correct it, we do recommend that the report be read carefully in proper context to recognize any text inaccuracies. Dictated by: Nidia Styles M.D. on 03/21/2024 at 21:13 [facility] Narrative Medical decision making narrative: Patient 28-year-old female currently 21 weeks presenting today with a syncopal episode. Initially she had an elevated blood pressure 141/86 but all others have been in the 120s. No evidence of preeclampsia today she does not have any protein in her protein creatinine ratio 0.22 Urine today is positive for nitrates concerning for UTI culture pending. Other blood work shows WBC 12.1 hemoglobin 12.7 hematocrit 37.1 Uric acid 5.8, LDH, 122 Chemistry panel within normal limits Ultrasound has been reviewed fetus 21 weeks and 1 day no abnormalities She was given her 1st dose of Keflex here in the emergency department. At this time no concern for preeclampsia however she has had it in her last 2 pregnancies she knows to follow up closely with her OB. She will be treated for UTI with Keflex Discharge Plan Departure Patient Disposition: Home Clinical Impression: Syncope, UTI (urinary tract infection) during Instructions: DI for Urinary Tract Infection (UTI) Activity Restrictions/Additional Instructions: *You have been diagnosed with syncope and bladder infection *What to do: At this time please increase your fluids as tolerated. No evidence of preeclampsia today. However please follow-up with your OB *Continue to take medications as directed Keflex 500 mg twice a day for 7 days *Follow up with your primary care provider in 2-3 days or call [phone] *Return to ER if you should have recurrent episode of passing out abdominal pain or any new, worsening or concerning symptoms Prescriptions: New cephalexin 500 mg capsule 500 mg PO BID 7 Days Qty: 14 0RF No Action metformin 1,000 mg tablet 1,000 mg PO BID Qty: 180 3RF ondansetron 4 mg tablet,disintegrating 4 mg PO Q6H PRN (Reason: nausea and vomiting) Qty: 20 2RF vit-ferrous sulfat-FA 27 mg iron- 0.8 mg tablet PO (DME) Blood Glucose Test Strip See Rx Instructions .ROUTE .MEDSUPPLY Qty: 100 0RF Rx Instructions: Please check am fasting BS, and 2 hours after breakfast/lunch/dinner (DME) blood-glucose meter [Blood Glucose Monitoring] Kit See Rx Instructions .ROUTE .MEDSUPPLY Qty: 1 0RF Rx Instructions: please chk AM fasting blood sugar, and 2 hour after brkfst, lunch and dinner (DME) lancets Misc See Rx Instructions .ROUTE .MEDSUPPLY Qty: 100 3RF Rx Instructions: please chk AM fasting blood sugar, and 2 hour after brkfst, lunch and dinner Referrals: Micaela Russ MD [Physician] - Avril Bustamante MD [Primary Care Provider] - Stand Alone Forms: Patient Portal/API/Survey
[2024-03-21 22:46] LABS: Appearance Urine UA CLEAR; Bilirubin Urine UA NEGATIVE (NEGATIVE); Color Urine UA YELLOW; Glucose Urine UA NEGATIVE (Negative); Ketones Urine UA NEGATIVE (NEGATIVE); Leukocyte Esterase Urine UA NEGATIVE (NEGATIVE); Nitrite Urine UA NEGATIVE (Negative); Occult Blood Urine UA NEGATIVE (Negative); Protein Urine UA NEGATIVE (Negative); Specific Gravity Urine UA <=1.005 (1.000-1.035); Urobilinogen Urine UA 0.2 E.U./dL (0.2)
[2024-03-21 22:55] LABS: pH Urine UA 6.5 (4.5-8.0)
[2024-03-21 22:58] LABS: Bacteria Urine None Seen; Culture Indicated Urine Cult Not Indicated; RBC Urine None Seen (0-5/HPF); Squamous Epithelial Cell Urine 0-1 /HPF (0-5/HPF); Urine Volume 10mL (spun); WBC Urine None Seen (0-5/HPF)
[2024-03-21] MEDS: cephALEXin 250 MG CAPSULE 500 MG PO (23:07)
== END 2024-03-21 23:15 | disposition home or self-care (01) ==
PROVIDERS: Emergency Provider Emergency Medicine; PCP Family Medicine
DX: O23.42 Unspecified infection of urinary tract in pregnancy, second trimester (principal); N39.0 Urinary tract infection, site not specified; O16.2 Unspecified maternal hypertension, second trimester; R55 Syncope and collapse; Z3A.21 21 weeks gestation of pregnancy
CPT/HCPCS: 36415; 76815; 80053; 81001; 81003; 82570; 83615; 84156; 84550; 85025; 96360; 96361; 99284

== ENCOUNTER → 2024-03-27 12:49 | Outpatient (CLI) | payer OTHER, SELFPAY ==
--- NOTE | 2024-04-03 17:07 | DIAB.GDA ---
Initial Gestational Diabetes Assessment Name: Christa Yoon Date: 03/27/24 Time: 1-2p Dx: Gestational Diabetes PMH Provider: Petrona ADOLFO: 07/31/24 Weeks: 22 Christa presents for initial visit. Reports PMH of GDM x 2 pregnancies. Has been checking BG and having elevated FBG. Currently on Metformin r/t her PCOS (1000mg BID) Has been conscious of diet per report. Does have a difficult time this with protein, gag reflex reported. Though cheese, sausage, eggs, beans, tuna is ok. Worries she is not getting enough protein, though per diet recall she is getting above CANVAS CUTTER for , which is good, 80g approx per day per diet recall. Diet Recall: 8-9a: protein shake with coffee, part of muffin 12p: tuna sandwich with fruit OR fruit and cheese or salami OR lightly breaded chicken with latvian fries an dapple 2p: cheese and fruit OR low sugar yogurt with cheerios 5p: nachos with cheese, veg, and beans OR Cereal with milk OR Gyro with protein, veg, on 05/03 eng muffin 80oz water zero sugar juice 20oz protein shake Anthropometrics: Ht: 66 Wt: 260# 03/15 Prepregnancy wt: 264# Physical Activity: Not discussed today Self-Monitoring Blood Glucose: Checking FBG and 2 hour pc (started just FBG per OB recs, but then was asked to include pc readings as well). All FBG above goal. Few pc readings but most in goal. States OB asked her to send in BG next week. Based on current FBG, may benefit from sending in by the end of the week if FBG continue above goal. Date Pre Post Pre Post Pre Post HS 03/21 96 03/22 128 03/23 110 03/24 129 103 03/25 108 85 148 03/26 89 97 126 120 03/27 113 95 Diabetes Medications: 1000mg Metformin BID Pertinent Labs: Screen 139 mg/dl; HgA1c 5.1% Nutrition Rx: Carbohydrates: Meal: 45-g lunch and dinner; 30g breakfast Snack: 15-30g Nutrition Diagnosis: Nutrition and food related knowledge deficit r/t needing additional education on nutrition with recent elevated BG and potential for GDM aeb pt report and BG logs Intervention: This participant was very receptive. Provided appropriate educational handouts. Discussed the following topics: GDM pathophysiology review and impact of hyperglycemia on mom and baby Risk for T2DM for mom and baby in the future Ways to reduce risk T2DM Plate Method, meal timing, carb counting, pairing macronutrients and spreading out CHO for better BG management. label reading Blood glucose goals (FBG: <95 and 1 hour <140 mg/dL or 2 simone <120mg/dl); importance of checking 4x per day (FBG and pc) Impact of macronutrients on blood glucose Recommended servings for carbohydrates at meals and snacks Brainstormed appropriate meal plan based on her food preferences Insulin injection technique, completed a return demo, answered all related questions, insulin action time and safety with insulin during Listeria nutrition risk reduction Role of physical activity and following provider guidelines for safety Goals: Check out shredded chicken Try to increase veg at lunch and dinner Measure CHO portions Message BG to RD in one week Follow-up: TERE ELLER follow-up in one week via messaging and in 2 weeks virtually. Encouraged her to send in BG this week if FBG continue above goal. Alanna Cueva RDN, ELODIAES Certified Diabetes Care and Smokehouse Worker T: [phone] F: [phone] [email or web address] Thank you for this referral
== END ==
PROVIDERS: PCP Family Medicine; Referring Provider Family Medicine
DX: O99.810 Abnormal glucose complicating pregnancy (principal); O99.282 Endocrine, nutritional and metabolic diseases complicating pregnancy, second trimester; E28.2 Polycystic ovarian syndrome; Z71.3 Dietary counseling and surveillance; Z86.32 Personal history of gestational diabetes; Z3A.22 22 weeks gestation of pregnancy
CPT/HCPCS: 97802

== ENCOUNTER → 2024-04-10 13:58 | Outpatient (CLI) | payer OTHER, SELFPAY ==
--- NOTE | 2024-04-10 14:00 | DIAB.GDFU ---
Follow-up Gestational Diabetes Assessment Name: Christa Yoon Date: 04/10/24 Time: 2-230p Dx: Gestational Diabetes Provider: Petrona ADOLFO: 07/31/24 Weeks: 24 Christa presents for follow-up virtual visit using [employer] Portal. Reports PMH of GDM x 2 pregnancies. Baseline on Metformin r/t her PCOS (1000mg BID) Started insulin last week, bumped up to 12u HS starting last night. This morning 102mg/dl. Had difficult time getting insulin due to coverage, which now this RD thinks this may be due to the rx for Novolin 70/30 flexpen U100 versus regular NPH HS. RD messaged OB workgroup for clarification. Seems this may have been in error. Denies any s/s of hypoglycemia. If pt continues 70/30, should likely be taken pre dinner meal. Tried sparkling cider and BG was in range after adequate protein with her meal. For the last week she has been out of town for a wedding. This has impacted some meal numbers naturally. Diet Recall: -9a: protein shake with coffee, and part of muffin OR eggs/sausage/part cinnamon roll 12p: PBJ lower carb bread and two turkey sticks and cheese 2p: cheese and fruit OR salami 5p: soup dumpling, salami, cheese, apple OR chicken burger, handful fries, salad 80oz water zero sugar juice 20oz protein shake Anthropometrics: Ht: 66 Wt: none today 260# 11/14 Prepregnancy wt: 264# Physical Activity: Was walking more recently with trip. Mostly walking for ADLs. Self-Monitoring Blood Glucose: Checking FBG and 2 hour pc. Out of town most of these values, so eating differently and missing checks. This week should be more predictable. Elevated breakfast yesterday, fast food breakfast. Date Pre Post Pre Post Pre Post HS 04/04 106 110 116 04/05 103 137 103 117 04/06 88 139 114 04/07 102 122 144 wedding 04/08 89 135 117 04/09 94 122 112 04/10 102 110 119 Diabetes Medications: 1000mg Metformin BID NPH 70/30 12u HS Pertinent Labs: Screen 139 mg/dl; HgA1c 5.1% Nutrition Rx: Carbohydrates: Meal: 45-g lunch and dinner; 30g breakfast Snack: 15-30g Nutrition Diagnosis: Nutrition and food related knowledge deficit r/t needing additional education on nutrition with recent elevated BG and potential for GDM aeb pt report and BG logs - improved Excessive CHO intake r/t vacation and change in diet aeb pt report and elevated BG- new Intervention: This participant was very receptive. Provided appropriate educational handouts. 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 Alanna Cueva RDN, DAPHNIE Certified Diabetes Care and Oracle Software Engineer T: [phone] F: [phone] [email or web address] Thank you for this referral
== END ==
LOC: DIET 13:59
PROVIDERS: PCP Family Medicine; Referring Provider Obstetrics & Gynecology
DX: O24.415 Gestational diabetes mellitus in pregnancy, controlled by oral hypoglycemic drugs (principal); O99.282 Endocrine, nutritional and metabolic diseases complicating pregnancy, second trimester; E28.2 Polycystic ovarian syndrome; Z3A.24 24 weeks gestation of pregnancy
CPT/HCPCS: 97803

== ENCOUNTER → 2024-04-27 08:29 | Outpatient (CLI) | payer OTHER, SELFPAY ==
--- NOTE | 2024-04-27 17:56 | DIAB.GDFU ---
Follow-up Gestational Diabetes Assessment Name: Christa Yoon Date: 04/27/24 Time: 830-9a Dx: Gestational Diabetes Provider: Petrona ADOLFO: 07/31/24 Weeks: 26 Christa presents for follow-up virtual visit using [employer] Portal. Reports PMH of GDM x 2 pregnancies. Baseline on Metformin r/t her PCOS (1000mg BID) Bumped up to 16u last night NPH, 101mg/dl FBG today. Started on Labetalol for BP and have had improved BP results (low 100s over 75-96) Purchased a protein cereal to try. States she feels she cannot eat much carb without having an elevated BG. Often eating below carb recs per report. Diet Recall: 8-9a: protein shake with coffee, and low carb granola bar 12p: ham, cheese, salami sandwiches with apple or grapes or berries PM snack: nothing cheese and salami or turkey stick +/- fruit 5p: Meatballs and rice x 1c OR grilled cheese on lower carb bread (18g for two slices) and tomato soup HS: nothing or cheese 80oz water zero sugar juice protein shake Anthropometrics: Ht: 66 Wt: 268# 04/12 260# 03/15 Prepregnancy wt: 264# Physical Activity: Pelvic pain barrier, difficulty sitting for long periods of time. Spoke with OB about it, but has progressed since. Previous saw a Chiropractor for this, but does not have one now. Sees OB beginning of May. Self-Monitoring Blood Glucose: Checking FBG and 2 hour pc. States unless she limits carbs completely she cannot have a BG in range. FBG only in goal when FBG for 12+ hours per report. Often having elevations after meals >120mg/dl and missing some BG checks. Open to mealtime insulin and CGM. Date Pre Post Pre Post Pre Post Notes 04/14 97 04/15 103 116 04/16 106 121 126 04/17 92 87 Coffee and pro shake 139 04/18 100 123 130 140 04/19 102 04/20 99 116 125 Date Pre Post Pre Post Pre Post Notes 04/21 93 Slept in 04/22 100 122 04/23 93 Slept in 126 Bigger fulfilling dinner and no Hs snack 04/24 88 Fasting 15 hours 87 No carbs 127 04/25 118 04/26 95 135 146 1.5 hr 04/27 101 Diabetes Medications: 1000mg Metformin BID NPH 16u HS Pertinent Labs: Screen 139 mg/dl; HgA1c 5.1% Nutrition Rx: Carbohydrates: Meal: 45-g lunch and dinner; 30g breakfast Snack: 15-30g Nutrition Diagnosis: Excessive CHO intake r/t vacation and change in diet aeb pt report and elevated BG- improved Self monitoring deficit r/t missed Bg checks aeb BG log- new Predicted inadequate CHO intake during r/t limiting CHO to reduce BG aeb pt report and diet recall- new Intervention: This participant was very receptive. Provided appropriate educational handouts. Discussed the following topics: physical activity and barriers Diet recs and changes she has made Potential for insulin at meals and CGM Insulin action and types Avoiding long periods of fasting during Goals: Try to be active after any meal for 10 mins- d/c Keep eye open for maybe new rx for NPH- met Watch morning carbs- met Chat with OB about pelvic pain restricting movement- new Increase NPH to 18u- new Try not to fast for over 12 hours- new Follow-up: TERE ELLER follow-up in one week for BG review and CGM sample. Messaged provider about CGm and potential for mealtime insulin. Alanna Cueva RDN, DAPHNIE Certified Diabetes Care and Pododermatologist T: [phone] F: [phone] [email or web address] Thank you for this referral
== END ==
PROVIDERS: PCP Family Medicine; Referring Provider Family Medicine
DX: O24.414 Gestational diabetes mellitus in pregnancy, insulin controlled (principal); Z3A.26 26 weeks gestation of pregnancy; Z71.3 Dietary counseling and surveillance
CPT/HCPCS: 97803

== ENCOUNTER → 2024-05-01 08:24 | Outpatient (CLI) | payer OTHER, SELFPAY ==
--- NOTE | 2024-05-01 08:38 | DIAB.GDFU ---
Follow-up Gestational Diabetes Assessment Name: Christa Yoon Date: 05/01/24 Time: 830-9a Dx: Gestational Diabetes Provider: Petrona ADOLFO: 07/31/24 Weeks: 27 Christa presents for follow-up. Reported PMH of GDM x 2 pregnancies. Baseline on Metformin r/t her PCOS (1000mg BID) Bumped up to 20u last night NPH, 103mg/dl FBG today. Message OB about additional insulin regimen and CGM rx for Dexcom G7. Anthropometrics: Ht: 66 Wt: 268# 04/12 260# 03/15 Prepregnancy wt: 264# Physical Activity: Pelvic pain barrier, difficulty sitting for long periods of time. Spoke with OB about it, but has progressed since. Previous saw a Chiropractor for this, but does not have one now. Sees OB beginning of May. Self-Monitoring Blood Glucose: Checking FBG and 2 hour pc.Continued elevations. Date Pre Post Pre Post Pre Post Notes 04/21 93 Slept in 04/22 100 122 04/23 93 Slept in 126 Bigger fulfilling dinner and no Hs snack 04/24 88 Fasting 15 hours 87 No carbs 127 04/25 118 04/26 95 135 146 1.5 hr 04/27 101 04/28 122 131 102 125 04/29 116 147 145 04/30 96 138 05/01 103 Diabetes Medications: 1000mg Metformin BID NPH 20u HS Pertinent Labs: Screen 139 mg/dl; HgA1c 5.1% Intervention: This participant was very receptive. Provided appropriate educational handouts. Discussed the following topics: CGM sample Reviewed CGM use and equipment Discussed when to check blood sugars using finger stick Reviewed high and low blood sugar signs/symptoms and treatment options Provided education for self-administration of CGM placement Educated patient on alarm settings Discussed how to remove and dispose of equipment Adding additional insulin time/type Potential for insulin pump if she does not want to inject MDI- declined at this time Goals: Chat with OB about pelvic pain restricting movement- in progress Increase NPH to 18u- met Try not to fast for over 12 hours- in progress Increase NPH to 22u tonight- new Follow-up: TERE ELLER follow-up in one week and will message by end of week to check in on CGM and insulin. Alanna Cueva, TERE, DAPHNIE Certified Diabetes Care and Entry Level Installation Technician T: [phone] F: [phone] [email or web address] Thank you for this referral
== END ==
PROVIDERS: PCP Family Medicine; Referring Provider Family Medicine
DX: O24.414 Gestational diabetes mellitus in pregnancy, insulin controlled (principal); O99.282 Endocrine, nutritional and metabolic diseases complicating pregnancy, second trimester; E28.2 Polycystic ovarian syndrome; Z3A.27 27 weeks gestation of pregnancy
CPT/HCPCS: G0108

== ENCOUNTER 2024-05-05 21:22 | Observation (INO) | payer OTHER, SELFPAY | END 2024-05-05 22:15 | disposition home or self-care (01) | LOC: LABOR 21:24 | PROVIDERS: Admitting Provider Obstetrics & Gynecology; PCP Family Medicine; Referring Provider Obstetrics & Gynecology; Visit Provider Obstetrics & Gynecology | DX: O36.8120 Decreased fetal movements, second trimester, not applicable or unspecified (principal); O13.3 Gestational [pregnancy-induced] hypertension without significant proteinuria, third trimester; O99.213 Obesity complicating pregnancy, third trimester; E66.9 Obesity, unspecified; O24.419 Gestational diabetes mellitus in pregnancy, unspecified control; Z3A.27 27 weeks gestation of pregnancy | CPT/HCPCS: 59025; G0378; G0379 ==

== ENCOUNTER → 2024-05-09 10:53 | Outpatient (CLI) | payer OTHER, SELFPAY ==
--- NOTE | 2024-05-09 17:10 | DIAB.GDFU ---
Follow-up Gestational Diabetes Assessment Name: Christa Yoon Date: 05/09/23 Time: Dx: Gestational Diabetes Provider: Petrona ADOLFO: 07/31/24 Weeks: 28 Christa presents for follow-up. Reported PMH of GDM x 2 pregnancies. Baseline on Metformin r/t her PCOS (1000mg BID) Up to 26u NPH and BG improving but still having FBG above goal. Added meal time insulin. States she feels she is actually able to eat now. Only taking 5u but asking if she can increase based on food intake. Rec 8-10u TID at this time. She agreed. Would like to continue with MDI vs automated insulin. Injecting in different though close spots on abdomen. States injections sometimes sting. Endorses keeping pen she is using at room temp. Waiting on new refill for pen needles, so skipped this morning's injection pre breakfast. Anthropometrics: Ht: 66 Wt: 269# 05/09 268# 04/12 260# 03/15 Prepregnancy wt: 264# Physical Activity: Pelvic pain barrier, difficulty sitting for long periods of time. Not discussed today. Self-Monitoring Blood Glucose: Checking FBG and wearing CGM. Continues to have some elevated FB, 101, 98, 110, 84, 97, 97 (today). FBG are improving from previous visits. After meal numbers improved this week but will increase mealtime insulin for better results and increase her ability to choose healthy carbs in rec portions. TIR: 0% very high 13% >140mg/dl 86% in range 1% low <1% very low Diabetes Medications: 1000mg Metformin BID NPH 28u HS 5u Lispro TID (rx for 10u) Pertinent Labs: Screen 139 mg/dl; HgA1c 5.1% Intervention: This participant was very receptive. Provided appropriate educational handouts. 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
== END ==
PROVIDERS: PCP Family Medicine; Referring Provider Obstetrics & Gynecology
DX: O24.415 Gestational diabetes mellitus in pregnancy, controlled by oral hypoglycemic drugs (principal); O99.283 Endocrine, nutritional and metabolic diseases complicating pregnancy, third trimester; E28.2 Polycystic ovarian syndrome; Z3A.28 28 weeks gestation of pregnancy; Z71.3 Dietary counseling and surveillance
CPT/HCPCS: G0108

== ENCOUNTER → 2024-05-24 17:06 | Outpatient (CLI) | payer OTHER, SELFPAY ==
--- NOTE | 2024-05-24 17:07 | DIAB.GDFU ---
Follow-up Gestational Diabetes Assessment Name: Christa Yoon Date: 05/24/2024 Time: 215-340 Dx: Gestational Diabetes Provider: Petrona ADOLFO: 07/31/24 Weeks: 30 Christa presents for follow-up virtually using [employer] Portal. Reported PMH of GDM x 2 pregnancies. Baseline on Metformin r/t her PCOS (1000mg BID) Up to 32u NPH and BG improving with most recent FBG in goal. Taking 15u mealtime insulin with dinner often in goal and lunch more often. Breakfast still elevated. May benefit from added NPH in the morning. RD messaged OB for guidance on adding more meal time vs NPH AM. Picked up needles for insulin pens. Some high CHO breakfasts. We did discuss lower CHO recs in the morning, however even with lower CHO recs reports elevated pc numbers. Diet Recall: 8-9a: honey nut cheerios x 2c and half protein shake OR eggs, sausage, cheese 12p: salami, fruit OR hot dog no bun with fruit x 1/2c and 5 crackers or chips Sn: protein bars low CHO OR fruit and cheese OR just 1-2 string cheese 5-530p: bagel cream cheese salami OR sandwich OR chicken with fruit or 1-2 scoops of macaroni OR fish and chips Snack: protein shake half to whole 80oz water Anthropometrics: Ht: 66 Wt: 269# 05/09 268# 04/12 260# 03/15 Prepregnancy wt: 264# Physical Activity: Pelvic pain barrier, difficulty sitting for long periods of time. Not discussed today. Self-Monitoring Blood Glucose: Checking FBG and wearing CGM. Overall readings improved. Recent FB/17: 91 05/19: 93 05/20: 99 H 05/21: 97 H 05/22: 94 05/23: 87 05/24: 86 Today TIR: 0% very high 12% >140mg/dl 88% in range 0% low 0% very low avmg/dl GMI: 6% variation: 24% Last visit TIR: 0% very high 13% >140mg/dl 86% in range 1% low <1% very low Diabetes Medications: 1000mg Metformin BID NPH 32u HS 15u Lispro TID (rx for 10u) Pertinent Labs: Screen 139 mg/dl; HgA1c 5.1% Nutrition Rx: Carbohydrates: Meal: 45-60g lunch and dinner; 30g breakfast Snack: 15-30g Nutrition Diagnosis: Predicted inadequate CHO intake during r/t limiting CHO to reduce BG aeb pt report and diet recall- in progress/improved Inconsistent CHO intake r/t BG management aeb pt report- new Physical inactivity r/t pelvic pain aeb pt report - continued Intervention: This participant was very receptive. Provided appropriate educational handouts. 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 Awaiting OB recs for morning insulin and will call her with update. Alanna Cueva RDN, DAPHNIE Certified Diabetes Care and Disability Rater T: [phone] F: [phone] [email or web address] Thank you for this referral
== END ==
PROVIDERS: PCP Family Medicine; Referring Provider Obstetrics & Gynecology
DX: O24.414 Gestational diabetes mellitus in pregnancy, insulin controlled (principal); Z3A.30 30 weeks gestation of pregnancy; Z71.3 Dietary counseling and surveillance
CPT/HCPCS: 97803

== ENCOUNTER 2024-06-06 10:56 | Outpatient (CLI) | payer OTHER, SELFPAY ==
--- NOTE | 2024-06-06 11:52 | PM.OBTRLD ---
Visit Information Visit Information Date of evaluation: 06/06/24 Primary OB Provider: Micaela Russ Reason for Evaluation: Yes non-stress test non-stress test reason: diabetes (GDM A2) and hypertension/pre-eclampsia [facility] Medical History (Updated 04/30/24 @ 12:57 by Micaela Russ MD) Gestational diabetes requiring insulin depression Gestational hypertension H/O gestational diabetes in prior , currently (~2017) Back injury (~2017) Anxiety Spontaneous vaginal delivery (~12/13/17) Chronic pain SVT (supraventricular tachycardia) Surgical History (Updated 12/08/23 @ 15:45 by Sara Overton, RN) History of cholecystectomy (10/28/21) Family History (Updated 12/08/23 @ 15:48 by Sara Overton, RN) Mother No problems noted. Father Gout Grandmother Arthritis Degenerative joint disease Grandfather Pacemaker Syncopal episodes Cardiac arrhythmia Heart attack Grandmother Dementia Grandfather Gout Brother Gout Alcohol abuse Uncle Cardiac abnormality CPAP (continuous positive airway pressure) dependence Social History marital status: number of children: 2 household members: spouse and children lives independently: Yes caregiver/support person: Yes housing: house pets and animals: Yes (2 cats) education level: college (some college) occupational status: unemployed current occupational exposures/hazards: No kevin/lutheran: Mormonism special kevin needs: No travel history: recent (domestic only) seatbelt use: always helmet use: Yes water heater temp set < 120 deg: Yes working smoke detector in home: Yes fire extinguisher in home: Yes carbon monox detector in home: Yes firearms in home: Yes firearms unloaded and locked: Yes do you feel safe at home: Yes Smoking Status: Never smoker second hand exposure: No alcohol intake: former (very rarely when not ) substance use type: does not use during the past year weight has: remained stable well-balanced diet: about half the time daily servings fruits/ve-4 caffeine: Yes (AM cup tea some days) Type(s) of exercise: walking Evaluation Evaluation Baseline heart rate: 140 Variability: Moderate (11-25) monitor accelerations: Present Monitor Decelerations: Absent Category of Tracing: Reactive Diagnosis, Plan/Disposition Plan/Disposition Plan: Assessment: 32+1 week's gestation with GDM A2 and chronic hypertension Reactive nonstress test Plan: Discussed kick counts at office visit Follow-up weekly for nonstress test
== END 2024-06-06 11:59 | disposition home or self-care (01) ==
LOC: OB 16:57
PROVIDERS: PCP Family Medicine; Referring Provider Obstetrics & Gynecology; Visit Provider Obstetrics & Gynecology
DX: O24.414 Gestational diabetes mellitus in pregnancy, insulin controlled (principal); O10.913 Unspecified pre-existing hypertension complicating pregnancy, third trimester; Z3A.32 32 weeks gestation of pregnancy
CPT/HCPCS: 59025; G0378; G0379

== ENCOUNTER → 2024-06-07 13:03 | Outpatient (CLI) | payer OTHER, SELFPAY ==
--- NOTE | 2024-06-07 13:07 | DIAB.GDFU ---
Addendum entered by Alanna Cueva 06/14/24 16:51: 36u NPH HS 12u NPH AM 15-18u Lispro (18u at breakfast and lunch) Having some lows this week after slight elevations of breakfast, about 3-4 hours after breakfast BG low, suspect this is from the AM NPH. Will back off NPH by 2u. RD f/u in 5 days Original Note: Follow-up Gestational Diabetes Assessment Name: Christa Yoon Date: 06/07/24 Time: 1-145p Dx: Gestational Diabetes Provider: Petrona ADOLFO: 07/31/24 Weeks: 32 Christa presents for follow-up virtually using [employer] Portal. Reported PMH of GDM x 2 pregnancies. Baseline on Metformin r/t her PCOS (1000mg BID) Some low reading overnight. Slept more on sensor though, so may be false lows. Did try confirming with fingerstick and was not low. This sensor seems to continuously show lows. Up to 36u NPH PM and 12u NPH AM and 15u with each meal. Higher BG often after breakfast and lunch. Diet Recall: 8-9a: keto bread x2 cream cheese, sprinkle of brown sugar +/- a little fruit and part of protein shake OR yogurt with protein little granola with little fruit 12p: leftovers high fiber pasta dish with meatballs OR burger and fries OR keto bread sandwich with handful of baked chips Sn: protein bars low CHO OR fruit and cheese + turkey stick OR just 1-2 string cheese 5-530p: calzone OR burger OR fettuccini x 2c with chx Snack: protein shake half to whole 80oz water Baby is 68th percentile and normal RAMIRO at 19 Keeping juice boxes and gummies in car for lows. Scheduled induction for 07/11 but reports may need to be week prior. States this is likely the last baby. Anthropometrics: Ht: 66 Wt: 274# 2/5 269# 05/09 268# 04/12 260# 03/15 Prepregnancy wt: 264# Physical Activity: Pelvic and back pain barrier. Self-Monitoring Blood Glucose: Checking FBG and wearing CGM. Overall readings similar to last visit. some elevated FBG this week, continues to titrate HS insulin as a result. Today TIR: 0% very high 16% >140mg/dl 84% in range 0% low 0% very low avmg/dl GMI: 6.1% variation: 24.6% Last visit TIR: 0% very high 12% >140mg/dl 88% in range 0% low 0% very low avmg/dl GMI: 6% variation: 24% Diabetes Medications: 1000mg Metformin BID NPH 36u HS 15u Lispro TID Pertinent Labs: Screen 139 mg/dl; HgA1c 5.1% Nutrition Rx: Carbohydrates: Meal: 45-60g lunch and dinner; 30g breakfast Snack: 15-30g Nutrition Diagnosis: Inconsistent CHO intake r/t BG management aeb pt report- improved Physical inactivity r/t pelvic pain aeb pt report - continued Predicted excessive CHO at some meals r/t increased hunger at these times aeb pt report and diet recall- new Intervention: This participant was very receptive. Provided appropriate educational handouts. Discussed the following topics: Reading food labels for carbs Carb portions at lunch and breakfast Insulin titration CGM sensor troubleshooting Set SMART goals Goals: Keep CHO at breakfast to 30g- met Continue 45-60g at lunch/dinner- met Keep low treatment in car- met Try 16-17u at breakfast- new Try 18u at lunch- new Replace recent CGM sensor- new Keep CHO at lunch to 45g - new Follow-up: TERE ELLER follow-up in one week via messaging and 2 weeks in person. Alanna Cueva RDN, DAPHNIE Certified Diabetes Care and Radiochemical Technician T: [phone] F: [phone] [email or web address] Thank you for this referral
== END ==
PROVIDERS: PCP Family Medicine; Referring Provider Obstetrics & Gynecology
DX: O24.415 Gestational diabetes mellitus in pregnancy, controlled by oral hypoglycemic drugs (principal); Z3A.32 32 weeks gestation of pregnancy; Z71.3 Dietary counseling and surveillance
CPT/HCPCS: 97803

== ENCOUNTER 2024-06-13 09:58 | Outpatient (CLI) | payer OTHER, SELFPAY ==
--- NOTE | 2024-06-13 11:12 | PM.OBTRLD ---
Visit Information Visit Information Date of evaluation: 06/13/24 Primary OB Provider: Micaela Russ On-call OB Provider: Micaela Russ Reason for Evaluation: Yes non-stress test non-stress test reason: diabetes (A2) and hypertension/pre-eclampsia [facility] Medical History (Updated 04/30/24 @ 12:57 by Micaela Russ MD) Gestational diabetes requiring insulin depression Gestational hypertension H/O gestational diabetes in prior , currently (~2017) Back injury (~2017) Anxiety Spontaneous vaginal delivery (~12/13/17) Chronic pain SVT (supraventricular tachycardia) Surgical History (Updated 12/08/23 @ 15:45 by Sara Overton, RN) History of cholecystectomy (10/28/21) Family History (Updated 12/08/23 @ 15:48 by Sara Overton, RN) Mother No problems noted. Father Gout Grandmother Arthritis Degenerative joint disease Grandfather Pacemaker Syncopal episodes Cardiac arrhythmia Heart attack Grandmother Dementia Grandfather Gout Brother Gout Alcohol abuse Uncle Cardiac abnormality CPAP (continuous positive airway pressure) dependence Social History marital status: number of children: 2 household members: spouse and children lives independently: Yes caregiver/support person: Yes housing: house pets and animals: Yes (2 cats) education level: college (some college) occupational status: unemployed current occupational exposures/hazards: No kevin/zoroastrianism: Christianity special kevin needs: No travel history: recent (domestic only) seatbelt use: always helmet use: Yes water heater temp set < 120 deg: Yes working smoke detector in home: Yes fire extinguisher in home: Yes carbon monox detector in home: Yes firearms in home: Yes firearms unloaded and locked: Yes do you feel safe at home: Yes Smoking Status: Never smoker second hand exposure: No alcohol intake: former (very rarely when not ) substance use type: does not use during the past year weight has: remained stable well-balanced diet: about half the time daily servings fruits/ve-4 caffeine: Yes (AM cup tea some days) Type(s) of exercise: walking Evaluation Evaluation Baseline heart rate: 135 Variability: Moderate (11-25) monitor accelerations: Present Monitor Decelerations: Absent Category of Tracing: Reactive Diagnosis, Plan/Disposition Plan/Disposition Plan: Assessment: Thirty 3+1 week's gestation Chronic hypertension on labetalol 100 mg at night and 200 mg in the a.m. On long and short-acting insulin Plan: Increase labetalol to 200 mg b.i.d. Follow-up in 1 week for office visit and nonstress test
== END 2024-06-13 11:15 | disposition home or self-care (01) ==
LOC: LABOR 10:46 → OB 14:07
PROVIDERS: PCP Family Medicine; Referring Provider Obstetrics & Gynecology; Visit Provider Obstetrics & Gynecology
DX: O10.913 Unspecified pre-existing hypertension complicating pregnancy, third trimester (principal); O24.913 Unspecified diabetes mellitus in pregnancy, third trimester; Z79.4 Long term (current) use of insulin; Z3A.33 33 weeks gestation of pregnancy
CPT/HCPCS: 59025; G0378; G0379

== ENCOUNTER → 2024-06-19 09:28 | Outpatient (CLI) | payer OTHER, SELFPAY ==
--- NOTE | 2024-06-19 09:31 | DIAB.GDFU ---
Addendum entered by Alanna Cueva 06/26/24 17:12: BG improved with less hyperglycemia after breakfast. Some increase in lows. Pt report these are more compression lows. Encouraged her to reduce HS insulin if true lows are persistent. Otherwise, continue current regimen. Original Note: Follow-up Gestational Diabetes Assessment Name: Christa Yoon Date: 06/19/24 Time: 9-930a Dx: Gestational Diabetes Provider: Petrona ADOLFO: 07/31/24 Weeks: 34 Christa presents for follow-up virtually using Portal. Reported PMH of GDM x 2 pregnancies. Baseline on Metformin r/t her PCOS (1000mg BID) Up to 36u NPH PM and 10u NPH AM and 18u at breakfast and lunch, 15u with dinner. Breakfast and lunch seem to have improved BG but still often above target. Still often feeling as though she has to really keep meals low CHO at early meals. Today she asked if she could take a few extra units when elevated. Based on BG trends may increase hypoglycemia if given additional dosing during higher BG. Encouraged more activity with elevations if possible, and increased pre meal dosing prn. Diet Recall: 8-9a: keto bread x2 cream cheese, sprinkle of brown sugar +/- a little fruit and part of protein shake OR yogurt with protein little granola with little fruit 12p: leftovers OR yogurt with fruit OR keto bread sandwich with handful of baked chips Sn: protein bars low CHO OR fruit and cheese + turkey stick 5-530p: yogurt with fruit OR Pizza Snack: protein shake OR cheese 80oz water Baby is 68th percentile and normal RAMIRO at 19 Keeping juice boxes and gummies in car for lows. Scheduled induction for 07/11 but reports may need to be week prior. States this is likely the last baby. Great h/o children about 2 years each. Familiar with resources here. Anthropometrics: Ht: 66 Wt: 274# 2/5 269# 05/09 268# 04/12 260# 03/15 Prepregnancy wt: 264# Physical Activity: Pelvic and back pain reduced. Still limited in activity. Increased fatigue. Self-Monitoring Blood Glucose: Checking FBG and wearing CGM. Some false lows at night from compression with last sensor. Today TIR: 0% very high 11% >140mg/dl 87% in range 2% low 1% very low avmg/dl GMI: 5.8% variation: 23.7% Last visit TIR: 0% very high 16% >140mg/dl 84% in range 0% low 0% very low avmg/dl GMI: 6.1% variation: 24.6% Diabetes Medications: 1000mg Metformin BID NPH 36u HS NPH 10u AM 15-18u Lispro TID Pertinent Labs: Screen 139 mg/dl; HgA1c 5.1% Nutrition Rx: Carbohydrates: Meal: 45-60g lunch and dinner; 30g breakfast Snack: 15-30g Nutrition Diagnosis: Physical inactivity r/t pelvic pain aeb pt report - continued Predicted excessive CHO at some meals r/t increased hunger at these times aeb pt report and diet recall- improved Intervention: This participant was very receptive. Provided appropriate educational handouts. Discussed the following topics: Recs Impact again of insulin resistance for earlier meals Insulin changes/recs Physical activity benefits Recent blood sugar results and impact of food and hormones Review of macronutrient recommendations during Benefits, resources, and nutrition for recommendations for nutrition and physical activity recommendations for T2DM risk reduction OGTT at 6-12 weeks Checking blood sugars twice per week (goal: fasting <100 mg/dL and 2 hour pc <140 mg/dL) until 6 week check-up HgA1c q 1-3 years. Set SMART goals Goals: Try 16-17u at breakfast- met Try 18u at lunch- met Replace recent CGM sensor- met Keep CHO at lunch to 45g - met Increase breakfast to 20u (if low after breakfast reduce AM NPH by 2u)- new If BG are elevated try walking 5-10 min- new Follow-up: TERE ELLER follow-up in one week via messaging. Alanna Cueva RDN, DAPHNIE Certified Diabetes Care and [employer] T: [phone] F: [phone] [email or web address] Thank you for this referral
== END ==
LOC: DIET 09:28
PROVIDERS: PCP Family Medicine; Referring Provider Family Medicine
DX: O24.414 Gestational diabetes mellitus in pregnancy, insulin controlled (principal); Z71.3 Dietary counseling and surveillance; Z3A.34 34 weeks gestation of pregnancy
CPT/HCPCS: 97803

== ENCOUNTER → 2024-06-21 10:31 | Outpatient (CLI) | payer OTHER, SELFPAY ==
[2024-06-21 12:14] LABS: Add Manual Diff / Slide Review NO; Basophils Absolute Auto 0 /uL (0-100); Basophils Percent Auto 0.2 % (0-2); Eosinophils Absolute Auto 100 /uL (0-450); Hematocrit 35.4 % (36-46); Hemoglobin 12.2 g/dL (12.0-16.0); Lymphocytes Absolute Auto 1500 /uL (1100-4500); Lymphocytes Percent Auto 17.1 % (25-40); Mean Corpuscular HGB Conc 34.4 % (30-36); Monocytes Absolute Auto 500 /uL (0-900); Neutrophils Absolute Auto 6500 /uL (1500-7000); Neutrophils Percent Auto 75.7 % (50-75); Platelet Count 255 X10^3/uL (150-400); Red Blood Cell Count 4.07 X10^6/uL (4.0-5.2); Red Cell Distribution Width 13.1 % (11.6-14.8); White Blood Cell Count 8.6 X10^3/uL (4.5-11.0)
[2024-06-21 12:28] LABS: Hemoglobin A1C% w Est Avg Glu 5.1 % (4.0-6.0)
[2024-06-21 12:36] LABS: Alanine Aminotransferase 14 IU/L (<35); Albumin 3.5 g/dL (3.5-5.0); Albumin Globulin Ratio 1.3 (1.0-2.8); Alkaline Phosphatase 113 U/L (38-126); Aspartate Aminotransferase 21 IU/L (14-36); BUN Creatinine Ratio 16.7 (6-22); Bilirubin Total 0.3 mg/dL (0.2-1.3); Blood Urea Nitrogen 12 mg/dL (7-17); Calcium 9.7 mg/dL (8.4-10.2); Carbon Dioxide 22 mmol/L (22-32); Chloride 106 mmol/L (98-107); Estimated Glomerular Filt Rate > 60 mL/min (>60); Globulin 2.7 g/dL (1.7-4.1); Glucose 67 mg/dL (70-100); HEMOLYSIS < 15 (0-50); Potassium 4.3 mmol/L (3.4-5.1); Sodium 134 mmol/L (137-145); Total Protein 6.2 g/dL (6.3-8.2)
[2024-06-22 10:28] LABS: Bile Acids 6.2 umol/L (0.0-10.0)
== END ==
PROVIDERS: PCP Family Medicine; Referring Provider Obstetrics & Gynecology; Visit Provider Obstetrics & Gynecology
DX: O99.719 Diseases of the skin and subcutaneous tissue complicating pregnancy, unspecified trimester (principal); L29.9 Pruritus, unspecified
CPT/HCPCS: 36415; 80053; 82239; 83036; 85025

== ENCOUNTER 2024-06-21 10:33 | Outpatient (CLI) | payer OTHER, SELFPAY | END 2024-06-21 11:27 | disposition home or self-care (01) | LOC: LABOR 10:40 → OB 06-22 06:09 | PROVIDERS: PCP Family Medicine; Referring Provider Obstetrics & Gynecology; Visit Provider Obstetrics & Gynecology | DX: O47.9 False labor, unspecified (principal); O24.419 Gestational diabetes mellitus in pregnancy, unspecified control; O13.3 Gestational [pregnancy-induced] hypertension without significant proteinuria, third trimester; O99.213 Obesity complicating pregnancy, third trimester; E66.9 Obesity, unspecified; Z3A.34 34 weeks gestation of pregnancy; O99.719 Diseases of the skin and subcutaneous tissue complicating pregnancy, unspecified trimester; L29.9 Pruritus, unspecified | CPT/HCPCS: 36415; 59025; 80053; 82239; 83036; 85025; G0378; G0379 ==

== ENCOUNTER → 2024-06-27 09:48 | Outpatient (CLI) | payer OTHER, SELFPAY ==
[2024-06-28 12:37] LABS: Strep Grp B PCR NEG for Grp B Strep
== END ==
PROVIDERS: PCP Family Medicine; Visit Provider Obstetrics & Gynecology
DX: Z3A.35 35 weeks gestation of pregnancy (principal)
CPT/HCPCS: 87653

== ENCOUNTER 2024-06-27 10:27 | Outpatient (CLI) | payer OTHER, SELFPAY | END 2024-06-27 11:45 | disposition home or self-care (01) | LOC: LABOR 11:16 → OB 06-28 07:39 | PROVIDERS: PCP Family Medicine; Referring Provider Obstetrics & Gynecology; Visit Provider Obstetrics & Gynecology | DX: O36.8130 Decreased fetal movements, third trimester, not applicable or unspecified (principal); O13.3 Gestational [pregnancy-induced] hypertension without significant proteinuria, third trimester; O99.213 Obesity complicating pregnancy, third trimester; E66.89 Other obesity not elsewhere classified; O24.414 Gestational diabetes mellitus in pregnancy, insulin controlled; Z3A.35 35 weeks gestation of pregnancy | CPT/HCPCS: 59025; 87653; G0378; G0379 ==

== ENCOUNTER 2024-07-04 15:11 | Outpatient (CLI) | payer OTHER, SELFPAY | END 2024-07-04 16:00 | disposition home or self-care (01) | LOC: LABOR 15:13 → OB 07-05 06:41 | PROVIDERS: PCP Family Medicine; Referring Provider Obstetrics & Gynecology; Visit Provider Obstetrics & Gynecology | DX: O24.419 Gestational diabetes mellitus in pregnancy, unspecified control (principal); O16.3 Unspecified maternal hypertension, third trimester; O99.213 Obesity complicating pregnancy, third trimester; E66.9 Obesity, unspecified; Z3A.36 36 weeks gestation of pregnancy | CPT/HCPCS: 59025; G0378; G0379 ==

== ENCOUNTER 2024-07-12 05:17 | Inpatient (IN) | payer OTHER, SELFPAY ==
[2024-07-12] MEDS: LACTATED RINGERS 1,000 ML 100 ML IV ×3 (05:50→10:37)
[2024-07-12 06:13] LABS: Add Manual Diff / Slide Review NO; Basophils Absolute Auto 0 /uL (0-100); Basophils Percent Auto 0.4 % (0-2); Eosinophils Absolute Auto 200 /uL (0-450); Eosinophils Percent Auto 1.8 % (2-4); Hematocrit 35.2 % (36-46); Lymphocytes Absolute Auto 1900 /uL (1100-4500); Lymphocytes Percent Auto 22.2 % (25-40); Mean Corpuscular Hemoglobin 29.7 PG (26-34); Mean Corpuscular Volume 87.3 fL (80-100); Monocytes Absolute Auto 400 /uL (0-900); Monocytes Percent Auto 4.9 % (3-14); Neutrophils Absolute Auto 6200 /uL (1500-7000); Neutrophils Percent Auto 70.7 % (50-75); Platelet Count 235 X10^3/uL (150-400); Red Blood Cell Count 4.04 X10^6/uL (4.0-5.2); Red Cell Distribution Width 13.3 % (11.6-14.8); White Blood Cell Count 8.7 X10^3/uL (4.5-11.0)
[2024-07-12] MEDS: FENT 2MCG/ML BUPIV 0.125% EPI 200 MCG/100 ML PLAST..BAG 6 MCG EPIDURAL (07:17)
[2024-07-12] MEDS: TERBUTALINE 1 MG/ML VIAL 0.25 MG SUBCUT (07:31)
--- NOTE | 2024-07-12 07:48 | PM.AN.REGBLK ---
Regional Block <Moe Goldsmith CRNA - Last Filed: 07/12/24 07:56> Pre-procedure Procedure: Continuous Lumbar Epidural for L&D Attending OB provider: Micaela Russ PM/ROS narrative: 37wks presents for version followed by IOL or C/S. Epidural requested by Dr. Russ PSH/Anesthesia history narrative: See pre-anesthesia eval Exam narrative: ASA Class: III Labs: Hct 35.2 % (36-46) L 07/12/24 05:00 Plt Count 235 X10^3/uL (150-400) 07/12/24 05:00 Medications: Current Medications Generic Name Dose Route Start Last Admin Trade Name Freq PRN Reason Stop Dose Admin Carboprost Tromethamine 250 mcg 07/12/24 06:04 Carboprost 250 Mcg/Ml Ampul IM Q90M PRN Bleeding Diphenhydramine HCl 25 mg 07/12/24 06:23 Diphenhydramine 50 Mg/Ml Vial IV Q10M PRN Pruritis Ephedrine Sulfate 10 mg 07/12/24 06:23 Ephedrine 50 Mg/Ml Vial IV Q5M PRN Blood pressure decrease more than 20% of baseline. Oxytocin/Lactated Ringer's 30 unit in 500 mls @ 200 mls/hr 07/12/24 06:04 Oxytocin Premix IV CONT PRN Bleeding Protocol Tranexamic Acid 1,000 mg/ 100 mls @ 600 mls/hr 07/12/24 06:04 Sodium Chloride IV NOW PRN Bleeding Lactated Ringer's 1,000 mls @ 100 mls/hr 07/12/24 06:15 Lactated Ringers IV 07/12/24 16:14 CONT HARIS FENT 2MCG/ML BUPIV 0.125% EPI 200 mcg in 100 mls @ 6 mls/hr 07/12/24 06:30 07/12/24 07:17 Fentanyl/Bupiv/Ns 2mcg/Ml - 0.125% EPIDURAL 6 mls/hr CONT HARIS Administration Lidocaine HCl 20 ml 07/12/24 06:04 Lidocaine 1% 20 Ml INJ INTRA-OP PRN Post Delivery Methylergonovine Maleate 0.2 mg 07/12/24 06:04 Methylergonovine 0.2 Mg Tablet PO Q6HR PRN Heavy Bleeding Methylergonovine Maleate 0.2 mg 07/12/24 06:04 Methylergonovine 0.2 Mg/Ml Vial IM NOW PRN Bleeding Mineral Oil 30 ml 07/12/24 06:04 Mineral Oil 30 Ml Udc TOP PRN PRN Version Misoprostol 800 mcg 07/12/24 06:04 Misoprostol 200 Mcg Tablet [place] NOW PRN Bleeding Misoprostol 400 mcg 07/12/24 06:04 Misoprostol 200 Mcg Tablet SL NOW PRN Bleeding Nalbuphine HCl 2.5 mg 07/12/24 06:23 Nalbuphine 20 Mg/Ml Ampul IV Q10M PRN Pruritis Naloxone HCl 0.2 mg 07/12/24 06:04 Naloxone 0.4 Mg/Ml Vial IV Q2MIN PRN Opiate Reversal Oxytocin 10 unit 07/12/24 06:04 Oxytocin 10 Unit/Ml Vial IM NOW PRN Bleeding Allergies: Allergies Allergy/AdvReac Type Severity Reaction Status Date / Time No Known Drug Allergies Allergy Verified 07/04/24 14:37 Procedure Insertion date: 07/12/24 Insertion time: 06:54 Prep/Local: 1% lidocaine (Chloraprep) Interspace: L3-L4 Patient position: sitting Needle: 17 gauge Tuohy Loss of resistance with: saline GABRIELE at (cm): 8 Catheter placed at SKIN (cm): 18 Catheter in SPACE (cm): 10 Insertion: Yes CSF, No Blood, No Paresthesia with insertion, No Paresthesia with injection and No Test dose reaction Initial Medications TEST DOSE time: 07:05 TEST DOSE: 1.5% lidocaine with epinephrine 1:200k (mL): 3 BOLUS DOSE time: 07:04 BOLUS DOSE med: other (CSE/intrathecal: 50mcg fentanyl, 0.5ml 0.25% bupivacaine) Infusion INFUSION: 0.125% bupivacaine and with fentanyl 2 mcg/mL Initial rate (mL/hr): 6 (3ml PCEA q15min) Post-procedure Anesthesia date START: 07/12/24 Anesthesia time START: 06:40 <Manuela Hobbs CRNA - Last Filed: 07/12/24 09:54> Infusion Subsequent interventions: To OR following failed . 10mL 2% chloroprocaine and 10mL 2% lidocaine in divided doses produced favorable block. Patient tolerated well. Healthy baby girl born via at 0911. Catheter removed at 0950 with tip intact. -BRYAN DOMINIQUE Post-procedure Anesthesia date END: 07/12/24 Anesthesia time END: 09:50 Post-procedure Anesthesia Assessment: Yes CV function: HR/BP stable, Yes Resp function: RR/sat/airway adequate, Yes Post-op hydration adequate, Yes Pain control adequate, Yes Nausea & vomiting absent, Yes Temperature > 36 C, Yes Mental status appropriate and No Anesthesia complications
--- NOTE | 2024-07-12 08:10 | P.HPOB_ITS ---
OB HPI Date/Time Date of admission: 07/12/24 Date Patient Seen: 07/12/24 Time Patient Seen: 08:11 History of Present Condition Chief complaint: induction ADOLFO Calculator 2 Estimated Delivery Date Method Current WG Current Estimate 07/31/24 Conception 37w 2d Other Estimates 07/29/24 Ultrasound #1 37w 4d Estimated Gestational Age (weeks): 37+2 : 4 Para: 2 care: good care, initiated at week # (8), number of visits (10) and pounds weight gain (18) Dating criteria OB: LMP confirmed by 1st trimester US Ultrasounds: normal 1st trimester US and normal mid trimester US Obstetrical complications: gestational diabetes (on Insulin) and gestational hypertension Medical complications OB: none Indications Operative indications ( section): breech presentation (failed version) Preadmission Labs Last OB Lab Results: 2 Blood Type A Positive 07/12/24 05:00 Antibody Screen Negative 07/12/24 05:00 Hct 35.2 % (36-46) L 07/12/24 05:00 Hgb 12.0 g/dL (12.0-16.0) 07/12/24 05:00 Hep Bs Antigen Negative s/c (NEGATIVE) 12/21/23 13:07 Hepatitis C Antibody Negative s/c (NEGATIVE) 12/21/23 13:07 Rubella Antibody 28.2 IU/mL (>15) 12/21/23 13:07 VZV IgG Antibody 788 index (Immune >165) 12/21/23 13:07 Glucose 1 Hr 50 gm 143 mg/dL (76-139) H 09/09/20 15:29 Hemoglobin A1c 5.1 % (4.0-6.0) 06/21/24 11:44 Group B Strep (PCR) Neg for grp b strep 06/27/24 09:48 -: Chlamydia screen: negative, Gonorrhea screen: negative and Urine: negative -: PAP smear: Normal Genetic Screens: Cell-free DNA: Normal External Labs -: Urine: negative Prior (ies) Past Pregnancies Del. Date GA/Weeks Labor Lgth Wt Sex Route Outcome Anesthesia Place Delv Breastfeed Preg Comp Name 05/02/16 5 spontaneous spontaneous 12/13/17 37.5 10 7 lb Female vaginal live - full term epidural IH Dr Russ 22 months with nipple shield gestational diabetes induced hyper- Elana Crissy Yoon 12/19/20 36.4 6 6 lb 5 oz Male vaginal live - epid ural IH 2 1/2 years gestational diabetes pre-eclampsia Shafer Delivery Date: 05/02/16 Last Updated by: Adeola Pineda R.N. *Unsure of details : possible miscarriage Delivery Date: 12/13/17 Last Updated by: Adeola Pineda R.N. *Pt is unsure of how long labor actually was. *Induced : cervical ripening and Pitocin per patient's understand to prevent eclampsia. *PPD in hindsight. Has struggled with depression in the past, and FOB only home on weekends; Anxiety also. Evaluation Evaluation Baseline heart rate: 135 Variability: Moderate (11-25) monitor accelerations: Present Monitor Decelerations: Absent [facility] Medical History (Updated 06/21/24 @ 10:25 by Micaela Russ MD) Gestational diabetes requiring insulin depression Gestational hypertension H/O gestational diabetes in prior , currently (~2017) Back injury (~2017) Anxiety Spontaneous vaginal delivery (~12/13/17) Chronic pain SVT (supraventricular tachycardia) Surgical History (Updated 12/08/23 @ 15:45 by Sara Overton RN) History of cholecystectomy (10/28/21) Family History (Updated 12/08/23 @ 15:48 by Sara Overton RN) Mother No problems noted. Father Gout Grandmother Arthritis Degenerative joint disease Grandfather Pacemaker Syncopal episodes Cardiac arrhythmia Heart attack Grandmother Dementia Grandfather Gout Brother Gout Alcohol abuse Uncle Cardiac abnormality CPAP (continuous positive airway pressure) dependence Social History marital status: number of children: 2 household members: spouse and children lives independently: Yes caregiver/support person: Yes housing: house pets and animals: Yes (2 cats) education level: college (some college) occupational status: unemployed current occupational exposures/hazards: No kevin/lutheran: [employer] special kevin needs: No travel history: recent (domestic only) seatbelt use: always helmet use: Yes water heater temp set < 120 deg: Yes working smoke detector in home: Yes fire extinguisher in home: Yes carbon monox detector in home: Yes firearms in home: Yes firearms unloaded and locked: Yes do you feel safe at home: Yes Smoking Status: Never smoker second hand exposure: No alcohol intake: former (very rarely when not ) substance use type: does not use during the past year weight has: remained stable well-balanced diet: about half the time daily servings fruits/ve-4 caffeine: Yes (AM cup tea some days) Type(s) of exercise: walking Meds Home Medications and Allergies Home Medications Medication Instructions Recorded Confirmed Type metformin 1,000 mg tablet 1,000 mg PO BID PCOS #180 tabs 08/17/23 07/04/24 Rx vitamin-ferrous sulfate tab PO 12/08/23 07/04/24 History 27 mg iron-folic acid 0.8 mg tablet ondansetron 4 mg disintegrating 4 mg PO Q6H PRN nausea and 12/12/23 07/04/24 Rx tablet vomiting #20 tabs blood-glucose meter (Blood Glucose #1 ea 03/15/24 07/04/24 Rx Monitoring kit) lancets #100 ea 03/15/24 07/04/24 Rx pen needle, diabetic 29 gauge x #100 ea 04/04/24 07/04/24 Rx 1/2 (Ultra-Thin II Insulin Pen [place]) hydroxyzine HCl 25 mg tablet 25 mg PO BEDTIME #30 tabs 04/12/24 07/04/24 Rx blood sugar diagnostic (Blood #100 ea 04/26/24 07/04/24 Rx Glucose Test strips) blood-glucose sensor (DexVivasure Medical G7 #3 ea 05/03/24 07/04/24 Rx Sensor device) insulin NPH isoph U-100 human 100 10 unit (0.1 mL) SUBCUT QPM #15 mL 05/03/24 07/04/24 Rx unit/mL (3 mL) subcutaneous pen (Novolin N FlexPen) insulin lispro 100 unit/mL 10 unit (0.1 mL) SUBCUT TID #15 mL 05/03/24 07/04/24 Rx subcutaneous pen (Humalog KwikPen (U-100) Insulin) pen needle, diabetic 31 gauge x #100 ea 05/09/24 07/04/24 Rx 5/16 (Easy Comfort Pen [place]) citalopram 10 mg tablet (Celexa) 10 mg PO DAILY #30 tabs 05/16/24 07/04/24 Rx clotrimazole-betamethasone 1 1 applic topical BID yeast 05/30/24 07/04/24 Rx %-0.05 % topical cream infection breast #15 grams RSVPreF3 antigen-AS01E 0.5 ml IM ONCE #1 ea 06/06/24 07/04/24 Rx adjuvant(PF) 120 mcg/0.5 mL IM suspension, kit labetalol 100 mg tablet 200 mg (2 x 100 mg) PO BID #120 07/09/24 Rx tabs Allergies Allergy/AdvReac Type Severity Reaction Status Date / Time No Known Drug Allergies Allergy Verified 07/04/24 14:37 OB Exam Narrative Exam Narrative: Generally: Patient lying in bed, no acute distress Lungs: Clear to auscultation bilaterally Cardiovascular: Regular rate and rhythm Extremities: Trace edema, negative Homans Objective Labs 07/12/24 05:00 Labs: Laboratory Results - last 24 hr 07/12/24 05:00 WBC 8.7 RBC 4.04 Hgb 12.0 Hct 35.2 L MCV 87.3 MCH 29.7 MCHC 34.0 RDW 13.3 Plt Count 235 Neut % (Auto) 70.7 Lymph % (Auto) 22.2 L [place] % (Auto) 4.9 Eos % (Auto) 1.8 L Baso % (Auto) 0.4 Neut # (Auto) 6200 Lymph # (Auto) 1900 [place] # (Auto) 400 Eos # (Auto) 200 Baso # (Auto) 0 Blood Type A Positive Antibody Screen Negative Assessment and Plan Assessment and Plan Assessment and Plan narrative: Assessment: 29-year-old 4 para 2 at 37-,2/7 weeks gestation Persistent breech presentation Failed external cephalic version Gestational diabetes, A2, and gestational hypertension Plan: Primary low transverse section The risks, benefits, and alternatives to the procedure were explained to the patient. The risks including bleeding, infection, injury to the bowel, bladder, or ureters. She understands these risks and agrees to proceed. A full par Q was held and consent form was signed. Time-Based Coding :: [TOTAL MINUTES] spent with patient and on the chart (including review of chart, obtaining history, exam, reviewing outside data, placing orders, documenting exam and treatment plan, and counseling patient) on [DATE].
--- NOTE | 2024-07-12 08:16 | PM.PREOP ---
Pre-operative Note Interval Note History & Physical reviewed/Exam performed by Physician: Yes Changes to H&P: No H&P completed within 30 days and has changed as indicated here:: 07/12/24
[2024-07-12] MEDS: LACTATED RINGERS 1,000 ML 999 ML IV (08:27)
[2024-07-12] MEDS: CEFAZOLIN VIAL 3 GM in SODIUM CHLORIDE 0.9% 100 ML IV (08:55)
--- NOTE | 2024-07-12 08:55 | SUR.OPER ---
Supine on Padded OR bed, head on pillow, safety belt at thigh, arms secured on padded arm boards at <90 degrees abduction. Bump under right buttock. Legs uncrossed with pillow under knees, gel pad to heels, tape over blanket to lower legs.
[2024-07-12 09:04] VITALS: BP 130/82
[2024-07-12] MEDS: ACETAMINOPHEN IV 1,000 MG/100 ML VIAL 400 MG IV (09:54)
[2024-07-12 09:56] VITALS: BP 118/78; PULSE 84; RESP 25; TEMP 36.7; O2SAT 96
[2024-07-12 10:00] VITALS: BP 125/78; PULSE 91; RESP 18; O2SAT 94
[2024-07-12 10:10] VITALS: BP 115/81; PULSE 87; RESP 20; TEMP 36.7; O2SAT 95
[2024-07-12] MEDS: OXYCODONE IR 5 MG TABLET PO ×2 (14:12→21:12)
[2024-07-12] MEDS: KETOROLAC 30 MG/ML VIAL IV ×2 (15:49→22:00)
[2024-07-12] MEDS: INSULIN LISPRO 100 UNIT/ML 3ML VIAL 10 UNIT SUBCUT (17:42)
[2024-07-12] MEDS: MORPHINE 2 MG/ML INJ IV (17:46)
[2024-07-12 21:12] VITALS: BP 139/79; PULSE 84
[2024-07-12] MEDS: ACETAMINOPHEN 325 MG TABLET 650 MG PO (21:12)
[2024-07-12] MEDS: LABETALOL 100 MG TABLET 200 MG PO (21:12)
[2024-07-12] MEDS: INSULIN REGULAR 100 UNIT/ML 3 ML VIAL SUBCUT (21:29)
[2024-07-12 22:15] VITALS: BP 130/78; PULSE 85
[2024-07-13] MEDS: ACETAMINOPHEN 325 MG TABLET 650 MG PO ×3 (03:18→16:55)
[2024-07-13] MEDS: OXYCODONE IR 5 MG TABLET PO ×4 (03:18→23:48)
[2024-07-13] MEDS: KETOROLAC 30 MG/ML VIAL IV (04:02)
[2024-07-13 05:15] LABS: Add Manual Diff / Slide Review NO; Basophils Absolute Auto 100 /uL (0-100); Basophils Percent Auto 0.6 % (0-2); Eosinophils Absolute Auto 200 /uL (0-450); Eosinophils Percent Auto 1.6 % (2-4); Hematocrit 28.3 % (36-46); Hemoglobin 9.7 g/dL (12.0-16.0); Lymphocytes Absolute Auto 2100 /uL (1100-4500); Lymphocytes Percent Auto 21.3 % (25-40); Mean Corpuscular HGB Conc 34.2 % (30-36); Mean Corpuscular Hemoglobin 29.9 PG (26-34); Mean Corpuscular Volume 87.6 fL (80-100); Monocytes Absolute Auto 600 /uL (0-900); Monocytes Percent Auto 6.3 % (3-14); Neutrophils Absolute Auto 7100 /uL (1500-7000); Neutrophils Percent Auto 70.2 % (50-75); Platelet Count 200 X10^3/uL (150-400); Red Blood Cell Count 3.23 X10^6/uL (4.0-5.2); Red Cell Distribution Width 13.4 % (11.6-14.8); White Blood Cell Count 10.1 X10^3/uL (4.5-11.0)
[2024-07-13] MEDS: INSULIN NPH 100 UNIT/ML 10ML VIAL 20 UNIT SUBCUT (06:59)
[2024-07-13] MEDS: CITALOPRAM 10 MG TABLET PO (09:13)
[2024-07-13] MEDS: DOCUSATE 100 MG CAPSULE PO (09:13)
[2024-07-13] MEDS: PRENATAL VIT,CALC/IRON/FOLIC 1 TABLET 1 TAB PO (09:13)
[2024-07-13 09:14] VITALS: BP 127/76; PULSE 87
[2024-07-13] MEDS: LABETALOL 100 MG TABLET 200 MG PO (09:14)
[2024-07-13] MEDS: INSULIN REGULAR 100 UNIT/ML 3 ML VIAL SUBCUT (12:03)
[2024-07-13] MEDS: METFORMIN HCL 500 MG TABLET 1000 MG PO ×2 (14:36→21:18)
[2024-07-13] MEDS: IBUPROFEN 600 MG TABLET PO (16:56)
[2024-07-13] MEDS: LABETALOL 100 MG TABLET PO (21:18)
[2024-07-14] MEDS: IBUPROFEN 600 MG TABLET PO ×3 (00:24→13:41)
[2024-07-14] MEDS: ACETAMINOPHEN 325 MG TABLET 650 MG PO ×3 (00:25→13:42)
[2024-07-14] MEDS: OXYCODONE IR 5 MG TABLET PO ×3 (05:15→13:41)
[2024-07-14] MEDS: PRENATAL VIT,CALC/IRON/FOLIC 1 TABLET 1 TAB PO (09:08)
[2024-07-14] MEDS: DOCUSATE 100 MG CAPSULE PO (09:09)
[2024-07-14] MEDS: LABETALOL 100 MG TABLET PO (09:09)
[2024-07-14] MEDS: CITALOPRAM 10 MG TABLET PO (09:09)
[2024-07-14] MEDS: METFORMIN HCL 500 MG TABLET 1000 MG PO (09:11)
[2024-07-14 12:02] VITALS: BP 126/97; PULSE 102; RESP 16; TEMP 35.9
--- NOTE | 2024-07-14 13:36 | PM.OBCS.1 ---
Operative Date/Time/Diagnoses Date of procedure: 07/12/24 Time of procedure: 10:30 Pre-op diagnosis: 37+ 4 weeks' gestation Failed external cephalic version Persistent breech presentation Gestational hypertension Gestational diabetes, A2 Post-op diagnosis: same Procedure & Clinicians Procedure: Primary low-transverse section Same procedure as scheduled: Yes Indications: 29-year-old 3 para 2 with persistent breech presentation, failed external cephalic version. Gestational hypertension Gestational diabetes, A2 Surgeon: Micaela Russ Click Yes if Unassisted: No Crm Campaign Manager: Avril Bustamante Reason for Crm Campaign Manager: The laboratory chemical assistant was necessary to retract upon entry into the abdomen and uterus. She assisted with delivery of the with fundal pressure. She assisted with closure with retraction, clipping of suture, and closure of the contralateral fascia. Anesthesia Type: Epidural (With Duramorph) Operative Notes Findings: Live female infant in the double footling breech presentation Normal uterus, tubes, and ovaries Closure Type: primary Specimen(s): cord blood and placenta Intraoperative meds administered: Acetaminophen, Duramorph, Ketorolac and Pitocin Applied: Catheter (To continuous drainage) Estimated Blood Loss (mL): 600 Blood products transfused: none Procedure in detail: After informed consent was obtained, the patient was taken to the operating room where she was placed in the dorsal supine position with a leftward tilt, and a TRAXI was placed. She was prepped and draped in the usual sterile fashion. A time-out was performed. A Pfannenstiel skin incision was made 2 fingerbreadths above the pubic symphysis and carried through to the underlying layer of fascia. The fascia was nicked in the midline and the incision extended bilaterally with the Sheehan scissors. The superior aspect of the fascial incision was grasped with the Kasi clamps, elevated, and the underlying rectus muscles were dissected off sharply and bluntly. Attention was then turned to the inferior aspect of this incision which in a similar fashion was grasped with the Kasi clamps, elevated, and dissected off sharply and bluntly. The rectus muscles were in the midline, the peritoneum was identified and grasped between 2 hemostats. This was entered sharply with the Metzenbaum scissors. This incision was extended bluntly. A large Artie was placed into the incision. The vesicouterine peritoneum was identified, grasped with a pickup, and entered sharply with the Metzenbaum scissors. This incision was extended bilaterally, and the bladder flap created digitally. The lower uterine segment was incised in a transverse fashion with the scalpel. Upon entering the amniotic sac there was copious amounts of clear amniotic fluid. The was found to be in the double footling breech presentation. A total breech extraction was performed without difficulty. The nose and mouth were suctioned with bulb suction. The baby was wrapped in a sterile blanket. After 1 minute, the cord was double clamped and cut. The infant was handed off to waiting RN and RT. Cord bloods were obtained. Pitocin was given in the IV fluids. The uterus was expressed and the uterus was cleared of all clots and debris. The uterine incision was repaired with 1. Chromic in a running interlocking fashion. A second layer of the same suture was used for an imbricating layer. Hemostasis was achieved. The bladder flap was reapproximated using 2-0 Vicryl in a running fashion. The large Artie was removed from the incision. The tubes and ovaries were examined and were found to be normal. The gutters were cleared of all clots and debris. The peritoneum was closed using 2-0 Vicryl in a running fashion. The fascia was reapproximated using 0 Vicryl in a running fashion. Hemostasis was achieved in the subcutaneous layer. Subcutaneous layer was then irrigated with warm normal saline. Five simple interrupted sutures were placed to reapproximate the subcutaneous layer. The skin was closed with 4-0 Monocryl in a subcuticular fashion. Steri-Strips and a césar dressing were placed. The uterus was expressed of a small amount of old blood and the uterus was marked below the umbilicus. Sponge, lap, and instrument counts were correct x2. The patient tolerated the procedure well, and was taken to PACU in stable condition. The urine was clear at the end of the case. Complications: none Baby 1: Delivery Date: 07/12/24 Delivery Time: 09:11 Gender: Female Presentation: breech Details: footling (Double) Placental Delivery Description: Expressed score (1 min): 9 score (5 min): 9 weight: 7 lb 10 oz Post-operative Condition: stable Disposition: PACU Aftercare: routine postop
--- NOTE | 2024-07-14 13:44 | PM.OBPN.1 ---
Subjective - OB Subjective Patient comments: pain well controlled, tolerating diet and flatus present [place] baby status: doing well and nursing well (Blood sugars have been in the normal range) feeding status: exclusively breast feeding Date Patient Seen: 07/13/24 Time Patient Seen: 12:40 Interval history: Postop day # 1 status post primary low transverse section due to persistent breech presentation, after a failed external cephalic version. The catheter has been removed and patient has been able to void. Her pain is well controlled. She has tolerating a diet. Her blood sugars have been well controlled with minimal insulin requirements. Blood pressure has been stable. She is passing flatus. She is ambulating independently. Exam Vital Signs (past 8 hours): - 07/14/24 12:02 Temperature 96.7 F L Pulse Rate 102 H Respiratory Rate 16 Blood Pressure 126/97 H Oxygen Delivery Method Room Air Narrative Exam Narrative: Generally: Patient is sitting up in bed, holding , no acute distress Lungs: Clear to auscultation bilaterally Cardiovascular: Regular rate and rhythm Fundus: Firm at U -1 Incision: Clean dry and intact with césar dressing Extremities: 1+ pitting edema, negative Homans Objective Labs 07/13/24 05:00 Assessment & Plan Plan day: 1 plan OB: routine postop care Comments: Assessment: Postop day # 1 status post primary low transverse section, doing very well Plan: Continue to trend blood pressures and blood sugars Anticipate discharge tomorrow Time-Based Coding :: [TOTAL MINUTES] spent with patient and on the chart (including review of chart, obtaining history, exam, reviewing outside data, placing orders, documenting exam and treatment plan, and counseling patient) on [DATE].
--- NOTE | 2024-07-14 13:48 | PM.OBDS.1 ---
Discharge Providers Provider Date of admission: 07/12/24 05:17 Discharge Date: 07/14/24 Primary care physician: Avril Bustamante MD Consults: 07/12/24 06:05 Consult to Anesthesiology Urgent Comment: Consulting Provider: Moe Goldsmith Reason for consultation: Epidural 07/12/24 10:31 Consult to On Site Coordinator Routine Comment: 07/12/24 20:11 Consult to On Site Coordinator Routine Comment: Discharge provider: Micaela Russ MD Summary Hospital Course Date Patient Seen: 07/14/24 Time Patient Seen: 11:30 Diagnoses: 37+ 2 weeks' gestation Persistent breech presentation Failed external cephalic version Gestational hypertension Gestational diabetes, A2 Double footling breech presentation Hospital Course: Patient is a 29-year-old 3 para 3 who presented on July 12, 2024 for a scheduled external cephalic version under epidural analgesia. The external cephalic version was unsuccessful. Patient underwent a primary low transverse section with epidural in place without complication. Her postoperative course has been unremarkable. Her blood pressures have been stable on labetalol. Her blood sugars have been stable on a 1000 mg of metformin twice a day. is going well. She is passing flatus. She has voided without the catheter. She is ambulating independently. Her bleeding is tapering. Peripartum Data Delivery Method: Section Procedures: Epidural analgesia Failed external cephalic version Primary low-transverse section complications: none [place] 1: Gender: Female Disposition of : home Status at Discharge Cognitive/behavioral status at discharge: oriented Functional status at discharge: independent ambulation Overall status at discharge: patient is progressing back to baseline Time Spent with Patient Time attestation: Total time spent providing and/or coordinating discharge services: Time spent: Less than 30 minutes Objective Labs 07/13/24 05:00 Exam Vital Signs (past 8 hours): - 07/14/24 12:02 Temperature 96.7 F L Pulse Rate 102 H Respiratory Rate 16 Blood Pressure 126/97 H Oxygen Delivery Method Room Air Narrative Exam Narrative: Generally: Patient lying in bed, holding infant, no acute distress Lungs: Clear to auscultation bilaterally Cardiovascular: Regular rate and rhythm Fundus: Firm at U -1 Incision: Clean dry and intact with césar dressing Extremities: Negative Homans, 1+ pitting edema Discharge Plan Discharge Plan Patient Disposition: Home Discharge orders & Medications Prescriptions: New oxycodone 5 mg tablet 5 mg PO Q6H PRN (Reason: pain) Qty: 20 0RF (DME) Dexcom G7 Sensor Device See Rx Instructions .Route Qty: 1 7RF Rx Instructions: As directed Continued metformin 1,000 mg tablet 1,000 mg PO BID Qty: 180 3RF citalopram [Celexa] 10 mg tablet 10 mg PO DAILY Qty: 30 3RF labetalol 100 mg tablet 200 mg PO BID Qty: 120 3RF vit-ferrous sulfat-FA 27 mg iron- 0.8 mg tablet PO hydroxyzine HCl 25 mg tablet 25 mg PO BEDTIME Qty: 30 2RF Discontinued ondansetron 4 mg tablet,disintegrating 4 mg PO Q6H PRN (Reason: nausea and vomiting) Qty: 20 2RF Novolin N FlexPen 100 unit/mL (3 mL) insulin pen 10 unit SUBCUT QPM Qty: 15 3RF insulin lispro [Humalog KwikPen Insulin] 100 unit/mL insulin pen 10 unit SUBCUT TID Qty: 15 2RF Rx Instructions: take three times a day with meals. clotrimazole-betamethasone 1-0.05 % cream 1 applic topical BID Qty: 15 0RF RSVPreF3 antigen-AS01E (PF) 120 mcg/0.5 mL suspension for reconstitution 0.5 ml IM ONCE Qty: 1 0RF No Action (DME) pen needle, diabetic [Ultra-Thin II Ins Pen [place]] 29 gauge x 1/2 needle See Rx Instructions .Route Qty: 100 0RF Rx Instructions: As directed (DME) Blood Glucose Test Strip See Rx Instructions .ROUTE .MEDSUPPLY Qty: 100 2RF Rx Instructions: Please check am fasting BS, and 2 hours after breakfast/lunch/dinner (DME) Dexcom G7 Sensor Device See Rx Instructions .ROUTE .MEDSUPPLY Qty: 3 10RF Rx Instructions: use to check blood sugars and change out every 10 days (DME) pen needle, diabetic [Easy Comfort Pen [place]] 31 gauge x 5/16 needle See Rx Instructions .Route Qty: 100 2RF Rx Instructions: To use with insulin pen at bedtime (DME) blood-glucose meter [Blood Glucose Monitoring] Kit See Rx Instructions .ROUTE .MEDSUPPLY Qty: 1 0RF Rx Instructions: please chk AM fasting blood sugar, and 2 hour after brkfst, lunch and dinner (DME) lancets Misc See Rx Instructions .ROUTE .MEDSUPPLY Qty: 100 3RF Rx Instructions: please chk AM fasting blood sugar, and 2 hour after brkfst, lunch and dinner Follow up/Referrals: Micaela Russ MD [Physician] - (Appt Wed for dressing removal 07/18 at [address] at 10 am on 08/22 for 6 wk PP visit) Activity Restrictions/Additional Instructions: No heavy lifting, nothing more than baby or gal of milk Nothing in the vagina for 6 weeks Diet/Activity/Treatments Diet: Carb-consistent/Diabetic Activity: No heavy lifting Nothing in the vagina for 6 weeks Skin/Wound/Dressing Care Report to your healthcare provider any signs of infection, such as:: chills, fever, increased pain, unusual drainage and unusual redness Dressing: Leave dressing in place until appointment next Tuesday Visit Report/Discharge Packet Instructions: DI for , DI for Prescription Opioid Use, Preeclampsia and Eclampsia After Childbirth Stand Alone Forms: Discharge: Care, Patient Portal/API, Stroke Signs & Symptoms Discharge Data Primary Care Provider: Avril Bustamante
--- NOTE | 2024-07-14 13:52 | PM.PROC.IH ---
Procedures Date/Time Date of procedure: 07/12/24 Time of procedure: 07:50 General Procedure description: External cephalic version A nonstress test was performed and was reactive. Procedure: An ultrasound was performed which revealed the head in the right upper quadrant and spine anterior and down the left side, feet first. Patient received 0.25 of subQ terbutaline after a Hep-Lock was placed. Four attempts at an external cephalic version were performed, checking the heart rate in between each one. The head could be moved to the transverse position but no further. The patient tolerated the procedure well. A nonstress test was performed at the completion of the procedure, and was reactive. Decision was made to proceed with primary low transverse section. Complications: none PROFEE Button Reclaimer Document charge(s): Yes
== END 2024-07-14 14:30 | disposition home or self-care (01) | DRG 788 ==
LOC: LABOR 13:19 → AC 21:42 → LABOR 07-13 15:06
PROVIDERS: Admitting Provider Obstetrics & Gynecology; PCP Family Medicine; Referring Provider Obstetrics & Gynecology; Visit Provider Obstetrics & Gynecology
PROC: 10D00Z1 Extraction of Products of Conception, Low, Open Approach (ICD-10-PCS; CPT 59514; principal; 2024-07-12 08:30)
DX: O32.8XX0 Maternal care for other malpresentation of fetus, not applicable or unspecified (principal); Z3A.37 37 weeks gestation of pregnancy; Z37.0 Single live birth; O13.4 Gestational [pregnancy-induced] hypertension without significant proteinuria, complicating childbirth; O24.424 Gestational diabetes mellitus in childbirth, insulin controlled
CPT/HCPCS: 36415; 59050; 59510; 59514; 76815; 85025; 86850; 86900; 86901; G0379; J0131; J0690; J1100; J1200; J1885; J2270; J2405; J3010

== ENCOUNTER → 2024-09-06 09:43 | Outpatient (CLI) | payer OTHER, SELFPAY ==
[2024-09-06 11:04] LABS: Glucose Fasting 98 mg/dL (70-100)
[2024-09-06 12:01] LABS: Glucose 1 Hour 178 mg/dL (70-170)
[2024-09-06 12:06] LABS: Glucose Tol Interpretation INTERPRETATION
[2024-09-06 13:05] LABS: Glucose 2 Hour 91 mg/dL (70-140)
== END ==
LOC: LAB 09:43
PROVIDERS: PCP Family Medicine; Referring Provider Obstetrics & Gynecology; Visit Provider Obstetrics & Gynecology
DX: O24.414 Gestational diabetes mellitus in pregnancy, insulin controlled (principal)
CPT/HCPCS: 36415; 82951; 82952

== ENCOUNTER → 2024-11-16 12:10 | Outpatient (CLI) | payer OTHER, SELFPAY ==
[2024-11-16 13:10] LABS: Hemoglobin A1C% w Est Avg Glu 5.1 % (4.0-6.0)
[2024-11-16 13:26] LABS: Alanine Aminotransferase 34 IU/L (<35); Albumin 4.5 g/dL (3.5-5.0); Albumin Globulin Ratio 1.6 (1.0-2.8); Alkaline Phosphatase 89 U/L (38-126); Blood Urea Nitrogen 15 mg/dL (7-17); Calcium 9.6 mg/dL (8.4-10.2); Carbon Dioxide 28 mmol/L (22-32); Chloride 104 mmol/L (98-107); Estimated Glomerular Filt Rate > 60 mL/min (>60); Globulin 2.8 g/dL (1.7-4.1); Glucose 68 mg/dL (70-99); HEMOLYSIS < 15 (0-50); Potassium 4.3 mmol/L (3.4-5.1); Sodium 139 mmol/L (137-145); Total Protein 7.3 g/dL (6.3-8.2)
[2024-11-16 13:56] LABS: TSH w/ Reflex to FT4 1.43 uIU/mL (0.47-4.68)
[2024-11-16 18:35] LABS: Add Manual Diff / Slide Review NO; Hematocrit 39.7 % (36-46); Hemoglobin 13.3 g/dL (12.0-16.0); Lymphocytes Absolute Auto 1900 /uL (1100-4500); Mean Corpuscular HGB Conc 33.6 % (30-36); Mean Corpuscular Hemoglobin 28.2 PG (26-34); Mean Corpuscular Volume 83.8 fL (80-100); Platelet Count 303 X10^3/uL (150-400)
== END ==
PROVIDERS: PCP Family Medicine; Referring Provider Family Medicine; Visit Provider Family Medicine
DX: L29.9 Pruritus, unspecified (principal); E88.819 Insulin resistance, unspecified
CPT/HCPCS: 36415; 80053; 83036; 84443; 85025